=== PATIENT | female | born 1960 | race Caucasian/White ===

== ENCOUNTER 2016-04-28 19:02 | Emergency (ER) | payer OTHER ==
[2016-04-28] MEDS ORDERED: RX INFO: IV CONTRAST WAS GIVEN 1 EACH MISC MISCELLANE PRN (19:31)
[2016-04-28] MEDS ORDERED: diphenhydrAMINE 50 MG/ML 1 ML VIAL IVP STA (19:31)
[2016-04-28] MEDS ORDERED: SODIUM CHLORIDE 0.9% 1,000 ML IV STA ×2 (19:31)
[2016-04-28] MEDS ORDERED: MORPHINE SULFATE 4 MG/ML SYRINGE IV STA (19:31)
[2016-04-28] MEDS ORDERED: ACETAMINOPHEN IV (For NPO) 1,000 MG in EMPTY BAG 1 BAG IVPB STA (19:31)
--- NOTE | 2016-04-28 20:17 | ED ---
General Adult HPI - General Source: patient, RN notes reviewed, old records reviewed Mode of arrival: ambulatory Limitations: no limitations <Sky Finney - Last Filed: 04/28/16 20:24> <Shaina Ortiz - Last Filed: 04/28/16 22:42> - General Chief complaint: Headache Stated complaint: Headache Time Seen by Provider: 04/28/16 19:21 - History of Present Illness Initial comments: This is a 55-year-old female ER for not feeling well. Patient mainly complains of headache and symptoms of sinus infection. Patient does have a complex medical history complicated by brain aneurysm. Patient denies neurological deficit does complain of mild bradycardia vision, symptoms started at 4 AM this morning and have been persistent drug today with no modifying factors for pain. Patient denies recent fevers. No trauma. (Sky Finney) - Related Data Home Medications Medication Instructions Recorded Confirmed Acetaminophen Tab [Tylenol] 650 mg PO TID PRN 06/15/15 04/28/16 Aspirin EC [Ecotrin Low Dose] 81 mg PO DAILY 04/28/16 04/28/16 Venlafaxine HCl ER [Effexor Xr] 37.5 mg PO HS 04/28/16 04/28/16 Previous Rx's Medication Instructions Recorded predniSONE 20 mg PO DAILY #5 tab 04/28/16 Allergies Allergy/AdvReac Type Severity Reaction Status Date / Time Quinolones Allergy Severe Unknown Verified 04/28/16 19:56 Sulfa (Sulfonamide Allergy Rash/Hives/Vision Verified 04/28/16 19:56 Antibiotics) Disturbance Review of Systems ROS Other: All systems not noted in ROS Statement are negative. <Sky Finney - Last Filed: 04/28/16 20:24> ROS Other: All systems not noted in ROS Statement are negative. <Shaina Ortiz - Last Filed: 04/28/16 22:42> ROS Statement: Those systems with pertinent positive or pertinent negative responses have been documented in the HPI. Past Medical History Past Medical History: Deep Vein Thrombosis (DVT), Hyperlipidemia, Osteoarthritis (OA) Additional Past Medical History / Comment(s): [facility] physician told her once that she has fatty liver. [facility] has 3 ulcers, Hx. of DVT from flying to [place] in May 2015. Recent dx. of Shingles. Saw Dr. Dawson on 12-17-15 and states she is clear of shingles. History of Any Multi-Drug Resistant Organisms: None Reported Past Surgical History: Adenoidectomy, Hysterectomy, Tonsillectomy Additional Past Surgical History / Comment(s): bunionectomy x2, hammer toes on both feet. Past Anesthesia/Blood Transfusion Reactions: No Reported Reaction Past Psychological History: Anxiety, Depression Additional Psychological History / Comment(s): Pt. is very anxious about surgery. Smoking Status: Current every day smoker Past Alcohol Use History: None Reported Additional Past Alcohol Use History / Comment(s): Smokes approx. 10 cigarettes per day. Smoked approx. 2 PPD since early . Past Drug Use History: None Reported - Past Family History Mother Family Medical History: Cancer Additional Family Medical History / Comment(s): basal cell Father Family Medical History: Cancer Additional Family Medical History / Comment(s): basal cell <Sky Finney - Last Filed: 04/28/16 20:24> General Exam Limitations: no limitations General appearance: alert, in no apparent distress Head exam: Present: atraumatic, normocephalic, normal inspection Eye exam: Present: normal appearance, PERRL, EOMI. Absent: scleral icterus, conjunctival injection, periorbital swelling ENT exam: Present: normal exam, mucous membranes moist Neck exam: Present: normal inspection. Absent: tenderness, meningismus, lymphadenopathy Respiratory exam: Present: normal lung sounds bilaterally. Absent: respiratory distress, wheezes, rales, rhonchi, stridor Cardiovascular Exam: Present: regular rate, normal rhythm, normal heart sounds. Absent: systolic murmur, diastolic murmur, rubs, gallop, clicks GI/Abdominal exam: Present: soft, normal bowel sounds. Absent: distended, tenderness, guarding, rebound, rigid Extremities exam: Present: normal inspection, full ROM, normal capillary refill. Absent: tenderness, pedal edema, joint swelling, calf tenderness Back exam: Present: normal inspection Neurological exam: Present: alert, oriented X3, CN II-XII intact Psychiatric exam: Present: normal affect, normal mood Skin exam: Present: warm, dry, intact, normal color. Absent: rash <Sky Finney - Last Filed: 04/28/16 20:24> Course <Sky Finney - Last Filed: 04/28/16 20:24> <Shaina Ortiz - Last Filed: 04/28/16 22:42> Vital Signs 04/28/16 04/28/16 19:12 22:16 Temperature 99.1 F 97.9 F Pulse Rate 77 66 Respiratory 18 16 Rate Blood Pressure 130/73 102/56 O2 Sat by Pulse 97 99 Oximetry Patient was endorsed to me or Dr. Chen To follow-up on the CT angiogram of brain and the neck, CT angiogram of brain and head or unremarkable, CBC, INR, troponin, comprehensive metabolic panel and urinalysis was all reviewed and they are unremarkable. Patient had a prescription of amoxicillin from her family doctor she is advised to continue that 500 mg by mouth 3 times a day I would add prednisone 20 mg 1 tablet daily for 5 days and she was encouraged to do Tylenol 1 g by mouth every 6 when necessary for her headaches (Shaina Ortiz) - Reevaluation(s) Reevaluation #1: 04/28/16 20:25 Patient's headache is much improved (Sky Finney) EKG Findings - EKG Comments: EKG Findings:: EKG shows normal sinus rhythm rate of 67, MS 164, QRS 94, QTC 445 <Sky Finney - Last Filed: 04/28/16 20:24> Medical Decision Making - Lab Data Result diagrams: 04/28/16 20:10 04/28/16 20:10 <Shaina Ortiz - Last Filed: 04/28/16 22:42> - Lab Data Lab Results 04/28/16 04/28/16 04/28/16 Range/Units 20:10 20:10 20:10 WBC 3.2 L (3.8-10.6) k/uL RBC 4.43 (3.80-5.40) m/uL Hgb 13.7 (11.4-16.0) gm/dL Hct 40.5 (34.0-46.0) % MCV 91.3 (80.0-100.0) fL MCH 30.9 (25.0-35.0) pg MCHC 33.8 (31.0-37.0) g/dL RDW 12.3 (11.5-15.5) % Plt Count 169 (150-450) k/uL Neutrophils % 50 % Lymphocytes % 37 % Monocytes % 7 % Eosinophils % 3 % Basophils % 1 % Neutrophils # 1.6 (1.3-7.7) k/uL Lymphocytes # 1.2 (1.0-4.8) k/uL Monocytes # 0.2 (0-1.0) k/uL Eosinophils # 0.1 (0-0.7) k/uL Basophils # 0.0 (0-0.2) k/uL PT (9.0-12.0) sec INR (<1.1) APTT (22.0-30.0) sec Sodium 138 (137-145) mmol/L Potassium 4.4 (3.5-5.1) mmol/L Chloride 104 (98-107) mmol/L Carbon Dioxide 24 (22-30) mmol/L Anion Gap 10 mmol/L BUN 13 (7-17) mg/dL Creatinine 0.67 (0.52-1.04) mg/dL Est GFR (MDRD) Af Amer >60 (>60 ml/min/1.73 sqM) Est GFR (MDRD) Non-Af >60 (>60 ml/min/1.73 sqM) Glucose 77 (74-99) mg/dL Calcium 9.4 (8.4-10.2) mg/dL Phosphorus 4.5 (2.5-4.5) mg/dL Magnesium 2.0 (1.6-2.3) mg/dL Total Bilirubin 0.9 (0.2-1.3) mg/dL AST 40 H (14-36) U/L ALT 26 (9-52) U/L Alkaline Phosphatase 61 (38-126) U/L Total Creatine Kinase 56 (30-135) U/L CK-MB (CK-2) 0.3 (0.0-2.4) ng/mL CK-MB (CK-2) Rel Index 0.5 Troponin I 0.012 (0.000-0.034) ng/mL Total Protein 7.2 (6.3-8.2) g/dL Albumin 4.4 (3.5-5.0) g/dL Urine Color Urine Appearance (Clear) Urine pH (5.0-8.0) Ur Specific [place] (1.001-1.035) Urine Protein (Negative) Urine Glucose (UA) (Negative) Urine Ketones (Negative) Urine Blood (Negative) Urine Nitrate (Negative) Urine Bilirubin (Negative) Urine Urobilinogen (<2.0) mg/dL Ur Leukocyte Esterase (Negative) 04/28/16 04/28/16 Range/Units 20:10 20:10 WBC (3.8-10.6) k/uL RBC (3.80-5.40) m/uL Hgb (11.4-16.0) gm/dL Hct (34.0-46.0) % MCV (80.0-100.0) fL MCH (25.0-35.0) pg MCHC (31.0-37.0) g/dL RDW (11.5-15.5) % Plt Count (150-450) k/uL Neutrophils % % Lymphocytes % % Monocytes % % Eosinophils % % Basophils % % Neutrophils # (1.3-7.7) k/uL Lymphocytes # (1.0-4.8) k/uL Monocytes # (0-1.0) k/uL Eosinophils # (0-0.7) k/uL Basophils # (0-0.2) k/uL PT 9.9 (9.0-12.0) sec INR 1.0 (<1.1) APTT 22.1 (22.0-30.0) sec Sodium (137-145) mmol/L Potassium (3.5-5.1) mmol/L Chloride (98-107) mmol/L Carbon Dioxide (22-30) mmol/L Anion Gap mmol/L BUN (7-17) mg/dL Creatinine (0.52-1.04) mg/dL Est GFR (MDRD) Af Amer (>60 ml/min/1.73 sqM) Est GFR (MDRD) Non-Af (>60 ml/min/1.73 sqM) Glucose (74-99) mg/dL Calcium (8.4-10.2) mg/dL Phosphorus (2.5-4.5) mg/dL Magnesium (1.6-2.3) mg/dL Total Bilirubin (0.2-1.3) mg/dL AST (14-36) U/L ALT (9-52) U/L Alkaline Phosphatase (38-126) U/L Total Creatine Kinase (30-135) U/L CK-MB (CK-2) (0.0-2.4) ng/mL CK-MB (CK-2) Rel Index Troponin I (0.000-0.034) ng/mL Total Protein (6.3-8.2) g/dL Albumin (3.5-5.0) g/dL Urine Color Light Yellow Urine Appearance Clear (Clear) Urine pH 6.5 (5.0-8.0) Ur Specific [place] 1.008 (1.001-1.035) Urine Protein Negative (Negative) Urine Glucose (UA) Negative (Negative) Urine Ketones Negative (Negative) Urine Blood Negative (Negative) Urine Nitrate Negative (Negative) Urine Bilirubin Negative (Negative) Urine Urobilinogen <2.0 (<2.0) mg/dL Ur Leukocyte Esterase Negative (Negative) Disposition <Sky Finney - Last Filed: 04/28/16 20:24> <Shaina Ortiz - Last Filed: 04/28/16 22:42> Clinical Impression: Headache, Sinusitis Disposition: HOME SELF-CARE Condition: Good Instructions: Acute Headache (ED) Prescriptions: predniSONE 20 mg PO DAILY #5 tab
[2016-04-28 20:29] LABS: Basophils % (A) 1 %; CH 30.6; CHCM 33.6; Eosinophils # (A) 0.1 k/uL (0-0.7); Eosinophils % (A) 3 %; HCT 40.5 % (34.0-46.0); HDW 2.33; HGB 13.7 gm/dL (11.4-16.0); Luc % (Auto) 3; Lymphocytes # (A) 1.2 k/uL (1.0-4.8); Lymphocytes % (A) 37 %; MCH 30.9 pg (25.0-35.0); MCHC 33.8 g/dL (31.0-37.0); MCV 91.3 fL (80.0-100.0); Mean Platelet Volume 8.2; Monocytes # (A) 0.2 k/uL (0-1.0); Monocytes % (A) 7 %; Neutrophils # (A) 1.6 k/uL (1.3-7.7); Neutrophils % (A) 50 %; RBC 4.43 m/uL (3.80-5.40); RDW 12.3 % (11.5-15.5); WBC 3.2 k/uL (3.8-10.6)
[2016-04-28 20:30] LABS: Appearance,Urine Clear (Clear); Bilirubin,Urine Negative (Negative); Glucose,Urine (UA) Negative (Negative); Ketones,Urine Negative (Negative); Leukocyte Esterase,Urine Negative (Negative); Nitrite,Urine Negative (Negative); PH, Urine 6.5 (5.0-8.0); Protein,Urine Negative (Negative); Specific Gravity,Urine 1.008 (1.001-1.035); UA Billing (MACRO vs. MICRO) CHEM; Urobilinogen,Urine <2.0 mg/dL (<2.0)
[2016-04-28 20:43] LABS: ALT 26 U/L (9-52); AST 40 U/L (14-36); Alkaline Phosphatase 61 U/L (38-126); Anion Gap 10 mmol/L; Blood Urea Nitrogen 13 mg/dL (7-17); Calcium 9.4 mg/dL (8.4-10.2); Carbon Dioxide 24 mmol/L (22-30); Chloride 104 mmol/L (98-107); Glucose 77 mg/dL (74-99); Non-African American GFR(MDRD) >60 (>60 ml/min/1.73 sqM); Phosphorous 4.5 mg/dL (2.5-4.5); Sodium 138 mmol/L (137-145); Total Bilirubin 0.9 mg/dL (0.2-1.3); Total Protein 7.2 g/dL (6.3-8.2)
[2016-04-28 20:46] LABS: Potassium 4.4 mmol/L (3.5-5.1)
[2016-04-28 20:48] LABS: Partial Thromboplastin Time 22.1 sec (22.0-30.0); Prothrombin Time 9.9 sec (9.0-12.0)
[2016-04-28 21:09] LABS: Creatine Kinase MB 0.3 ng/mL (0.0-2.4); Troponin I 0.012 ng/mL (0.000-0.034)
--- NOTE | 2016-04-28 21:45 | CT ---
EXAMINATION TYPE: CT angio head neck DATE OF EXAM: 04/28/2016 9:21 PM COMPARISON: NONE HISTORY: Pt states of BOYCE and blurry vision. Hx of right side brain aneurysm. CT DLP: 206.4 mGycm Automated exposure control for dose reduction was used. TECHNIQUE: Performed with IV Contrast, patient injected with 65 mL of Omnipaque 350. There are 3-D post processed images.. FINDINGS: There is normal branching pattern of the great vessels on the aortic arch. There is bilateral patency of the vertebral arteries. There is bilateral patency of the common internal and external carotid ar teries. There is arterial flow in the vertebrobasilar artery system. There is arterial flow in the anterior m iddle and posterior cerebral arteries. I see no mass effect. There is no evidence of aneurysm or neov ascularity. I see no pathologic enhancement. I see no evidence of stenosis. IMPRESSION: NEGATIVE CT ANGIOGRAM OF THE NECK. NEGATIVE CT ANGIOGRAM OF THE BRAIN.
[2016-04-28 22:17] VITALS: BP 102/56; PULSE 66; RESP 16; TEMP 97.9
== END 2016-04-28 22:57 | disposition home or self-care (01) ==
LOC: EC 19:02
DX: J32.9 Chronic sinusitis, unspecified (principal); Z79.82 Long term (current) use of aspirin; F41.9 Anxiety disorder, unspecified; F32.9 Major depressive disorder, single episode, unspecified; Z86.718 Personal history of other venous thrombosis and embolism; Z88.8 Allergy status to other drugs, medicaments and biological substances; Z88.2 Allergy status to sulfonamides; F17.210 Nicotine dependence, cigarettes, uncomplicated
CPT/HCPCS: 36415; 93005; 80053; 82550; 82553; 83735; 84100; 84484; 85025; 85610; 85730; 81003; 87086; 70496; 70498; 96374; 96375; 99284; J2270; J1200; Q9967; J0131

== ENCOUNTER → 2016-09-25 | Outpatient (CLI) | payer OTHER ==
--- NOTE | 2016-09-29 11:13 | MM ---
Reason for exam: screening (asymptomatic). Last mammogram was performed 1 year ago. History: Patient is postmenopausal and has history of other cancer at age 49. Family history of breast cancer in maternal aunt at age 55 and breast cancer in maternal aunt at age 50. Physical Findings: A clinical breast exam by your physician is recommended on an annual basis and results should be correlated with mammographic findings. MG Screening Mammo w CAD Bilateral CC and MLO view(s) were taken. Prior study comparison: September 19, 2015, bilateral MG screening mammo w CAD. July 11, 2014, bilateral MG screening mammo w CAD. There are scattered fibroglandular densities. No significant changes when compared with prior studies. ASSESSMENT: Negative, BI-RAD 1 RECOMMENDATION: Routine screening mammogram of both breasts in 1 year.
== END | disposition home or self-care (01) ==
LOC: RADMAMWWP 09:55
PROVIDERS: ATTEND Obstetrics & Gynecology
DX: Z12.31 Encounter for screening mammogram for malignant neoplasm of breast (principal); Z80.3 Family history of malignant neoplasm of breast

== ENCOUNTER → 2017-10-12 | Outpatient (CLI) | payer OTHER ==
--- NOTE | 2017-10-12 13:15 | BD ---
EXAMINATION TYPE: Axial Bone Density DATE OF EXAM: 10/12/2017 COMPARISON: NONE CLINICAL HISTORY: Height: 66 IN Weight: 171 LBS RISK FACTORS HISTORY OF: Active: YES Postmenopausal woman: AGE 50 MEDICATIONS: Additional Medications: BABY ASPIRIN EXAM MEASUREMENTS: Bone mineral densitometry was performed using the [employer]. Bone mineral density as measured about the Lumbar spine is: ----- L1-L4(G/cm2): 0.826 T Score Values are as follows: ----- L2: -3.7 ----- L3: -3.6 ----- L4: -2.0 ----- L1-L4: -2.9 Bone mineral density BASELINE Bone mineral density about the R hip (g/cm2): 0.789 Bone mineral density about the L hip (g/cm2): 0.737 T Score values are as follows: -----R Neck: -2.2 -----L Neck: -1.8 -----R Total: -2.1 -----L Total: -2.1 Bone mineral density BASELINE IMPRESSION: Osteopenia about the bilateral femoral and osteoporosis about the lumbar spine. NOTE: T-SCORE=SD OF THE YOUNG ADULT MEAN.
--- NOTE | 2017-10-18 13:43 | MM ---
Reason for exam: screening (asymptomatic). Last mammogram was performed 1 year and 1 month ago. History: Patient is postmenopausal and has history of other cancer at age 49. Family history of breast cancer in maternal aunt at age 55 and breast cancer in maternal aunt at age 50. Physical Findings: A clinical breast exam by your physician is recommended on an annual basis and results should be correlated with mammographic findings. MG Screening Mammo w CAD Bilateral CC and MLO view(s) were taken. Prior study comparison: September 25, 2016, bilateral MG screening mammo w CAD. September 19, 2015, bilateral MG screening mammo w CAD. There are scattered fibroglandular densities. No significant changes when compared with prior studies. ASSESSMENT: Benign, BI-RAD 2 RECOMMENDATION: Routine screening mammogram of both breasts in 1 year.
== END | disposition home or self-care (01) ==
LOC: RADMAMWWP 07:02
PROVIDERS: ATTEND Obstetrics & Gynecology
DX: Z12.31 Encounter for screening mammogram for malignant neoplasm of breast (principal); M81.0 Age-related osteoporosis without current pathological fracture; M85.852 Other specified disorders of bone density and structure, left thigh; M85.851 Other specified disorders of bone density and structure, right thigh; Z80.3 Family history of malignant neoplasm of breast; Z78.0 Asymptomatic menopausal state
CPT/HCPCS: 77067; 77080

== ENCOUNTER 2017-10-13 14:18 | Emergency (ER) | payer OTHER ==
[2017-10-13 14:43] VITALS: BP 105/70; PULSE 77; RESP 18; TEMP 98.3
--- NOTE | 2017-10-13 15:36 | ED ---
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 Mother states that two afternoons ago she was in the yard with her daughters playing badmitten when her daughter swung the raquet and hit her on the right side of face and head. Pt denies falling or loss of conciousness. Pt admits to headache since but experiences migraines chronically. Pt states that the headache came on gradually and is not the worse headache of her life. Pt comes in today requesting imaging of her head to "make sure the aneurysm didnt burst or something". Pt admits to headache, and some nausea. Denies vomiting, visual changes, parathesias, facial assymetry, loss of sensation, diplopia or any other symptoms. In addition pt admitted to tenderness to palpation over the lateral ride side of face and head. - Related Data Home Medications Medication Instructions Recorded Confirmed Aspirin EC [Ecotrin Low Dose] 81 mg PO DAILY 04/28/16 10/13/17 Allergies Allergy/AdvReac Type Severity Reaction Status Date / Time Quinolones Allergy Severe Unknown Verified 10/13/17 14:59 Sulfa (Sulfonamide Allergy Rash/Hives/Vision Verified 10/13/17 14:59 Antibiotics) Disturbance Review of Systems ROS Statement: Those systems with pertinent positive or pertinent negative responses have been documented in the HPI. ROS Other: All systems not noted in ROS Statement are negative. Past Medical History Past Medical History: Deep Vein Thrombosis (DVT), Hyperlipidemia, Osteoarthritis (OA) Additional Past Medical History / Comment(s): [facility] physician told her once that she has fatty liver. [facility] has 3 ulcers, Hx. of DVT from flying to [place] in May 2015. Recent dx. of Shingles. Saw Dr. Dawson on 12-17-15 and states she is clear of shingles. History of Any Multi-Drug Resistant Organisms: None Reported Past Surgical History: Adenoidectomy, Hysterectomy, Tonsillectomy Additional Past Surgical History / Comment(s): bunionectomy x2, hammer toes on both feet. Past Anesthesia/Blood Transfusion Reactions: No Reported Reaction Past Psychological History: Anxiety, Depression Smoking Status: Current every day smoker Past Alcohol Use History: None Reported Past Drug Use History: None Reported - Past Family History Mother Family Medical History: Cancer Additional Family Medical History / Comment(s): basal cell Father Family Medical History: Cancer Additional Family Medical History / Comment(s): basal cell General Exam - General Exam Comments Initial Comments: General: The patient is awake and alert, in no distress, and does not appear acutely ill. Eye: Pupils are equal, round and reactive to light, extra-ocular movements are intact. No nystagmus. There is normal conjunctiva bilaterally. No signs of icterus. Ears, nose, mouth and throat: There are moist mucous membranes and no oral lesions. Cardiovascular: There is a regular rate and rhythm. No murmur, rub or gallop is appreciated. Respiratory: Lungs are clear to auscultation, respirations are non-labored, breath sounds are equal. No wheezes, stridor, rales, or rhonchi. Musculoskeletal: Radial pulses equal bilaterally 2+. . Skin: Skin is warm and dry and no rashes or lesions are noted. No soft tissue swelling, ecchymosis or any abnormalities noted of the right side of face. It is equal in comparison with left. No contusions or bruising. Psychiatric: Cooperative, appropriate mood & affect, normal judgment. Neurological: AAOx3 memory intact to immediately, intermediate and skilled nursing recall. Able to follow simple verbal. Able to name a common object (pen). High quality speech. Able to express general knowledge (days in a week). No hemineglect or inattention noted. Finger agnosia (-) and spatially oriented ( identified L index finger touched R shoulder with L index finger). Light touch and temperature sensation present over the face, chest, abdomen, back, UE bilaterally, and LE bilaterally. Able to localize point during point localization b/l and extinction. No visible bulk atrophy, hypertrophy, fasciculations, or myoclonus of the UE or LE b/l. Full PROM in UE and LE b/l. Bilateral muscle strength 5/5 for the following muscles: deltoid, biceps, triceps, brachioradialis, wrist extensors/flexor, hip flexor, hip abductors/ adductors, hamstrings, quadriceps, feet dorsiflexors/plantar flexors. Finger to nose, finger to the examiners finger, and heel to diaz coordinated and accurate b/l. Coordinated and even demonstration of hand flip. +2 brachioradialis, triceps, patellar, and Achilles DTR b/l. Gait is coordinated and even in stride with tandem, toe and heel walk. Maintains balance with monopedal stance. (-) Romberg. (-) pronator drift. No nuchal rigidity. (-) Brudzinskis and Kernig signs. Limitations: no limitations Course Vital Signs 10/13/17 14:41 Temperature 98.3 F Pulse Rate 77 Respiratory 18 Rate Blood Pressure 105/70 O2 Sat by Pulse 99 Oximetry Medical Decision Making - Medical Decision Making Neuro exam unremarkable, no focal neurological deficits. CT obtained (-) for acute intracranial process. Pt was given toradol IM 30mg and zofran for nausea. Pt stated that this alleviated her symptoms. Case discussed with Dr. Boyce, at this time we feel patient is stable for discharge with neurology f/u for her chronic migraines. Pt agreed with plan. Pt discharged in stable condition. Disposition Clinical Impression: Head injury without concussion or intracranial hemorrhage Disposition: HOME SELF-CARE Condition: Good Instructions: Head Injury (ED) Additional Instructions: Please use home medication as discussed. Please follow-up with your neurologist in 1-2 days. Please return to emergency room if the symptoms increase or worsen or for any other concerns. Is patient prescribed a controlled substance at d/c from ED?: No Referrals: Robert Egan MD [Primary Care Provider] - 1-2 days Rick Todd MD [STAFF PHYSICIAN] - 1-2 days Time of Disposition: 15:44
--- NOTE | 2017-10-13 15:39 | CT ---
EXAMINATION TYPE: CT brain wo con DATE OF EXAM: 10/13/2017 COMPARISON: None INDICATION: Headache DLP: 1165 mGycm, Automated exposure control for dose reduction was used. CONTRAST: None CT of the brain is performed utilizing 3 mm thick sections through the posterior fossa and 3 mm thick sections through the remaining calvarium. Study is performed within 24 hours of arrival to the hosp [facility]. No abnormal hyperdensity is present to suggest an acute intracranial hemorrhage. No mass lesion is evident. No acute infarcts are evident. Ventricles and sulci are appropriate for the patient age. There is a patent cavum septum lucid, a no rmal variant. Paranasal sinuses and mastoid air cells within the [id number] are clear. IMPRESSIONS: 1. Normal CT Brain
[2017-10-13] MEDS ORDERED: KETOROLAC 30 MG/ML 1 ML VIAL IM STA (15:44)
[2017-10-13] MEDS ORDERED: ONDANSETRON ODT 4 MG TAB PO STA (15:44)
== END 2017-10-13 16:48 | disposition home or self-care (01) ==
LOC: EC 14:18
DX: S09.90XA Unspecified injury of head, initial encounter (principal); M19.90 Unspecified osteoarthritis, unspecified site; F17.200 Nicotine dependence, unspecified, uncomplicated; Z79.82 Long term (current) use of aspirin; Z88.1 Allergy status to other antibiotic agents; Z88.2 Allergy status to sulfonamides; W21.19XA Struck by other bat, racquet or club, initial encounter; Y93.73 Activity, racquet and hand sports; Y92.007 Garden or yard of unspecified non-institutional (private) residence as the place of occurrence of the external cause
CPT/HCPCS: 70450; 96372; 99283

== ENCOUNTER 2017-11-10 14:18 | Emergency (ER) | payer OTHER ==
[2017-11-10 14:32] VITALS: RESP 18
--- NOTE | 2017-11-10 15:00 | ED ---
General Adult HPI - General Chief complaint: ENT Stated complaint: Neck/throat swollen Time Seen by Provider: 11/10/17 14:41 Source: patient, RN notes reviewed Mode of arrival: ambulatory Limitations: no limitations - History of Present Illness Initial comments: Patient 57-year-old female presented to the emergency room today with a chief complaint of increased neck pain. Patient does admit that for the past week and a half she's had some posterior neck pain worse with movements. She states that she's also felt some fullness. She states that she's had chronic sinus problems. She states she has follow-up the family doctor was started on antibiotics yesterday. She states that she began feeling increased fullness and soreness to her neck specifically when she swallows. Patient did go back to her family doctor earlier today was advised coming to the emergency room for a CT of her neck. Patient denies any recent fever, chills, shortness of breath, chest pain, back pain, abdominal pain, nausea or vomiting, visual changes, or any other complaints. - Related Data Home Medications Medication Instructions Recorded Confirmed Aspirin EC [Ecotrin Low Dose] 81 mg PO DAILY 04/28/16 11/10/17 Acetaminophen [Tylenol] 1,000 mg PO Q4-6H PRN 11/10/17 11/10/17 Azithromycin [Zithromax] 500 mg PO HS 11/10/17 11/10/17 Fexofenadine/Pseudoephedrine 1 each PO BID 11/10/17 11/10/17 [Rylee-D 12 Hour Tablet] Ibuprofen [Advil] 200 mg PO Q8HR PRN 11/10/17 11/10/17 Allergies Allergy/AdvReac Type Severity Reaction Status Date / Time Quinolones Allergy Severe Unknown Verified 11/10/17 16:00 Sulfa (Sulfonamide Allergy Rash/Hives/Vision Verified 11/10/17 16:00 Antibiotics) Disturbance Review of Systems ROS Statement: Those systems with pertinent positive or pertinent negative responses have been documented in the HPI. ROS Other: All systems not noted in ROS Statement are negative. Past Medical History Past Medical History: Deep Vein Thrombosis (DVT), Osteoarthritis (OA) Additional Past Medical History / Comment(s): fatty liver, ulcers, Shingles, leukoplakia History of Any Multi-Drug Resistant Organisms: None Reported Past Surgical History: Adenoidectomy, Hysterectomy, Tonsillectomy Additional Past Surgical History / Comment(s): bunionectomy x2, hammer toes on both feet. Past Anesthesia/Blood Transfusion Reactions: No Reported Reaction Past Psychological History: Anxiety, Depression Smoking Status: Former smoker Past Alcohol Use History: None Reported Past Drug Use History: None Reported - Past Family History Mother Family Medical History: Cancer Additional Family Medical History / Comment(s): basal cell Father Family Medical History: Cancer Additional Family Medical History / Comment(s): basal cell General Exam - General Exam Comments Initial Comments: General: The patient is awake and alert, in no distress, and does not appear acutely ill. Eye: Pupils are equal, round and reactive to light. Extra-ocular movements are intact. No nystagmus. There is normal conjunctiva bilaterally. No signs of icterus. Ears, nose, mouth and throat: There are moist mucous membranes and no oral lesions. TMs clear bilaterally. Patient does have tenderness over both frontal and maxillary sinuses. Uvula midline. Patient swallows without difficulty. Neck: The neck is supple, there is no tenderness or JVD. Cardiovascular: There is a regular rate and rhythm. No murmur, rub or gallop is appreciated. Respiratory: Lungs are clear to auscultation, respirations are non-labored, breath sounds are equal. No wheezes, stridor, rales, or rhonchi. Musculoskeletal: Normal ROM. Sensation intact. Strength 5/5. Pulses equal bilaterally 2+. Neurological: A&O x 3. CN II-XII intact, There are no obvious motor or sensory deficits. Coordination appears grossly intact. Speech is normal. Skin: Skin is warm and dry and no rashes or lesions are noted. Psychiatric: Cooperative, appropriate mood & affect, normal judgment. Limitations: no limitations Course Vital Signs 11/10/17 14:26 Temperature 98.1 F Pulse Rate 77 Respiratory 18 Rate Blood Pressure 120/81 O2 Sat by Pulse 100 Oximetry Medical Decision Making - Medical Decision Making Patient reexamined at this time shows no signs of distress. She is resting comfortably. Patient's labs been reviewed. Patient's CT the head negative for any acute abnormalities. CT of the neck shows mild edema over the masseter muscle. Patient does admit that she had a recent biopsy in this area. At this time patient is doing well will be discharged home advised continue previous to prescribed antibiotics. She does have a prescription for steroids at the pharmacy from the family physician. Patient is advised follow-up family doctor tomorrow. Advised return for any other concerns. - Lab Data Result diagrams: 11/10/17 15:13 11/10/17 15:13 Lab Results 11/10/17 11/10/17 Range/Units 15:13 15:13 WBC 2.7 L (3.8-10.6) k/uL RBC 4.40 (3.80-5.40) m/uL Hgb 13.2 (11.4-16.0) gm/dL Hct 40.3 (34.0-46.0) % MCV 91.6 (80.0-100.0) fL MCH 30.0 (25.0-35.0) pg MCHC 32.8 (31.0-37.0) g/dL RDW 12.9 (11.5-15.5) % Plt Count (150-450) k/uL Neutrophils % (Manual) 52 % Lymphocytes % (Manual) 36 % Monocytes % (Manual) 9 % Eosinophils % (Manual) 3 % Neutrophils # (Manual) 1.40 (1.3-7.7) k/uL Lymphocytes # (Manual) 0.97 L (1.0-4.8) k/uL Monocytes # (Manual) 0.24 (0-1.0) k/uL Eosinophils # (Manual) 0.08 (0-0.7) k/uL Nucleated RBCs 0 (0-0) /100 WBC Polychromasia Present Sodium 140 (137-145) mmol/L Potassium 4.7 (3.5-5.1) mmol/L Chloride 107 (98-107) mmol/L Carbon Dioxide 25 (22-30) mmol/L Anion Gap 8 mmol/L BUN 13 (7-17) mg/dL Creatinine 0.63 (0.52-1.04) mg/dL Est GFR (CKD-EPI)AfAm >90 (>60 ml/min/1.73 sqM) Est GFR (CKD-EPI)NonAf >90 (>60 ml/min/1.73 sqM) Glucose 91 (74-99) mg/dL Calcium 9.5 (8.4-10.2) mg/dL Total Bilirubin 0.9 (0.2-1.3) mg/dL AST 35 (14-36) U/L ALT 27 (9-52) U/L Alkaline Phosphatase 45 (38-126) U/L Total Protein 7.1 (6.3-8.2) g/dL Albumin 4.3 (3.5-5.0) g/dL Disposition Clinical Impression: Sinusitis Disposition: HOME SELF-CARE Condition: Good Instructions: Sinusitis (ED) Additional Instructions: Please use medication as discussed. Please follow-up with family doctor in the next 2 days of symptoms have not improved. Please return to emergency room if the symptoms increase or worsen or for any other concerns. Is patient prescribed a controlled substance at d/c from ED?: No Referrals: Robert Egan MD [Primary Care Provider] - 1-2 days Time of Disposition: 16:26
[2017-11-10 15:34] LABS: HCT 40.3 % (34.0-46.0); HGB 13.2 gm/dL (11.4-16.0); MCHC 32.8 g/dL (31.0-37.0); MCV 91.6 fL (80.0-100.0); RDW 12.9 % (11.5-15.5); WBC 2.7 k/uL (3.8-10.6)
[2017-11-10 15:51] LABS: ALT 27 U/L (9-52); AST 35 U/L (14-36); Albumin 4.3 g/dL (3.5-5.0); Alkaline Phosphatase 45 U/L (38-126); Anion Gap 8 mmol/L; Blood Urea Nitrogen 13 mg/dL (7-17); Calcium 9.5 mg/dL (8.4-10.2); Carbon Dioxide 25 mmol/L (22-30); Chloride 107 mmol/L (98-107); Glucose 91 mg/dL (74-99); Sodium 140 mmol/L (137-145); Total Bilirubin 0.9 mg/dL (0.2-1.3); Total Protein 7.1 g/dL (6.3-8.2)
[2017-11-10 15:56] LABS: Eosinophils # (M) 0.08 k/uL (0-0.7); Lymphocytes # (M) 0.97 k/uL (1.0-4.8); Monocytes # (M) 0.24 k/uL (0-1.0); Neutrophils % (M) 52 %; Nucleated Red Blood Cells 0 /100 WBC (0-0); Polychromasia Present; Potassium 4.7 mmol/L (3.5-5.1); Total Cells Counted 100
--- NOTE | 2017-11-10 15:56 | CT ---
EXAMINATION TYPE: CT brain wo con DATE OF EXAM: 11/10/2017 COMPARISON: October 13, 2017 HISTORY: HX OF BRAIN ANUERYSM CT DLP: 1098.[address] of the brain was performed. The ventricles, basal cisterns and sulci overlying the cerebral convexities demonstrate a normal appe arance. There is no evidence for intracranial hemorrhage or sulcal effacement. No mass effects are seen. Osseous calvarium is intact. If symptoms persist consider MRI as clinically warranted. IMPRESSION: 1. No acute intracranial process is seen at this time.
--- NOTE | 2017-11-10 16:02 | CT ---
EXAMINATION TYPE: CT soft tissue neck w con DATE OF EXAM: 11/10/2017 COMPARISON: None HISTORY: LEFT SIDE FACIAL SWELLING CT DLP: 353.5 mGycm CONTRAST: CT scan of the neck is performed with IV Contrast, patient injected with 100 mL of Isovue 300. Contrast enhanced CT of the neck was performed from the skull base through the lung apices. AIRWAY: The supraglottic, glottic, and subglottic portions of the airway appear patent and free of mass. SALIVARY GLANDS: The submandibular and parotid glands are free of mass or inflammatory process. THYROID GLAND: No nodules or masses seen. LYMPH NODES: No adenopathy seen greater than 1cm. LUNG APICES: No nodule or mass is seen. OTHER: There is mild subcutaneous edema noted anterior to the left sided the masseter musculature. N o evidence for abscess. Vascular structures are patent. No significant degenerative change of the ce rvical spine. No abscess seen. IMPRESSION: There is mild subcutaneous edema noted anterior to the left sided the masseter musculature. No evide nce for abscess.
[2017-11-10 16:43] VITALS: BP 118/52; PULSE 69; TEMP 98.4
== END 2017-11-10 16:43 | disposition home or self-care (01) ==
LOC: EC 14:18
DX: J32.9 Chronic sinusitis, unspecified (principal); R60.0 Localized edema; M54.2 Cervicalgia; M19.90 Unspecified osteoarthritis, unspecified site; Z87.891 Personal history of nicotine dependence; Z88.1 Allergy status to other antibiotic agents; Z88.2 Allergy status to sulfonamides; Z79.82 Long term (current) use of aspirin; Z79.899 Other long term (current) drug therapy
CPT/HCPCS: 36415; 80053; 85025; 70491; 70450; 99284; Q9967

== ENCOUNTER → 2018-11-03 | Outpatient (CLI) | payer OTHER ==
--- NOTE | 2018-11-04 13:45 | MM ---
Reason for exam: screening (asymptomatic). Last mammogram was performed 1 year and 1 month ago. History: Patient is postmenopausal and has history of other cancer at age 49. Family history of breast cancer in maternal aunt at age 55 and breast cancer in maternal aunt at age 50. Physical Findings: A clinical breast exam by your physician is recommended on an annual basis and results should be correlated with mammographic findings. MG Screening Mammo w CAD Bilateral CC and MLO view(s) were taken. Prior study comparison: October 12, 2017, bilateral MG screening mammo w CAD. September 25, 2016, bilateral MG screening mammo w CAD. The breast tissue is heterogeneously dense. This may lower the sensitivity of mammography. No suspicious abnormality. ASSESSMENT: Negative, BI-RAD 1 RECOMMENDATION: Routine screening mammogram of both breasts in 1 year.
== END | disposition home or self-care (01) ==
LOC: RADMAMWWP 10:42
PROVIDERS: ATTEND Family Medicine
DX: Z12.31 Encounter for screening mammogram for malignant neoplasm of breast (principal)
CPT/HCPCS: 77067

== ENCOUNTER 2018-11-12 19:34 | Emergency (ER) | payer OTHER ==
[2018-11-12 19:45] VITALS: RESP 18; TEMP 98.3
[2018-11-12] MEDS ORDERED: CLINDAMYCIN 150 MG CAP PO STA (20:41)
--- NOTE | 2018-11-12 20:57 | ED ---
ENT HPI - General Chief complaint: Dental/Oral Stated complaint: Dental infection Time Seen by Provider: 11/12/18 19:48 Source: patient, family Mode of arrival: ambulatory Limitations: no limitations - History of Present Illness Initial comments: Patient is a 58-year-old female presenting to the emergency department with a chief complaint of tooth pain. Patient reports she recently had dental work done in the right lower jaw. Patient reports she has developed swelling along the angle of the right mandible. Patient reports pain along the right side of her jaw as well as the hard palate. Patient denies nausea vomiting. Patient denies any fevers or night sweats. Patient denies dysphagia, odynophagia or dyspnea. Patient denies any discharge from the mouth. Patient denies any pain radiating superiorly to the head or inferior to the neck - Related Data Home Medications Medication Instructions Recorded Confirmed Aspirin EC [Ecotrin Low Dose] 81 mg PO DAILY 04/28/16 11/10/17 Acetaminophen [Tylenol] 1,000 mg PO Q4-6H PRN 11/10/17 11/10/17 Azithromycin [Zithromax] 500 mg PO HS 11/10/17 11/10/17 Fexofenadine/Pseudoephedrine 1 each PO BID 11/10/17 11/10/17 [Rylee-D 12 Hour Tablet] Ibuprofen [Advil] 200 mg PO Q8HR PRN 11/10/17 11/10/17 Previous Rx's Medication Instructions Recorded Clindamycin [Cleocin] 150 mg PO Q6H #40 capsule 11/12/18 Allergies Allergy/AdvReac Type Severity Reaction Status Date / Time Quinolones Allergy Severe Unknown Verified 11/12/18 19:45 Sulfa (Sulfonamide Allergy Rash/Hives/Vision Verified 11/12/18 19:45 Antibiotics) Disturbance Review of Systems ROS Statement: Those systems with pertinent positive or pertinent negative responses have been documented in the HPI. ROS Other: All systems not noted in ROS Statement are negative. Past Medical History Past Medical History: Deep Vein Thrombosis (DVT), Osteoarthritis (OA) Additional Past Medical History / Comment(s): fatty liver, ulcers, Shingles, leukoplakia History of Any Multi-Drug Resistant Organisms: None Reported Past Surgical History: Adenoidectomy, Hysterectomy, Tonsillectomy Additional Past Surgical History / Comment(s): bunionectomy x2, hammer toes on both feet. Past Anesthesia/Blood Transfusion Reactions: No Reported Reaction Past Psychological History: Anxiety, Depression Smoking Status: Former smoker Past Alcohol Use History: None Reported Past Drug Use History: None Reported - Past Family History Mother Family Medical History: Cancer Additional Family Medical History / Comment(s): basal cell Father Family Medical History: Cancer Additional Family Medical History / Comment(s): basal cell General Exam Limitations: no limitations General appearance: alert, in no apparent distress Head exam: Present: atraumatic, normocephalic, normal inspection Eye exam: Present: normal appearance, PERRL, EOMI Pupils: Present: normal accommodation ENT exam: Present: normal exam, normal oropharynx (Erythema along the gumline of the right lower jaw. Erythema and inflammation of the hard palate. No lesions noted.), mucous membranes moist, TM's normal bilaterally, normal external ear exam Neck exam: Present: normal inspection, tenderness, full ROM Respiratory exam: Present: normal lung sounds bilaterally Cardiovascular Exam: Present: regular rate, normal rhythm, normal heart sounds Extremities exam: Present: normal inspection, full ROM Back exam: Present: normal inspection, full ROM Neurological exam: Present: alert, oriented X3 Psychiatric exam: Present: normal affect, normal mood Skin exam: Present: warm, intact, normal color Course Vital Signs 11/12/18 11/12/18 19:41 21:12 Temperature 98.3 F Pulse Rate 82 80 Respiratory 18 18 Rate Blood Pressure 130/90 121/81 O2 Sat by Pulse 99 98 Oximetry Medical Decision Making - Medical Decision Making Patient is a 58-year-old female presenting to the emergency department with a chief complaint of tooth pain. Patient reports she recently had dental work done in the right lower jaw. Physical examination there is erythema along the gumline a right lower jaw as well as the hard palate. No abscesses are noted. At this time patient will be given a single dose of clindamycin will be discharged with a 10 day course of clindamycin. Patient advised to follow with a dentist. Strict return parameters were thoroughly discussed patient is understanding and agreeable. Case discussed with physician. Disposition Clinical Impression: Inflamed gum Disposition: HOME SELF-CARE Condition: Stable Instructions (If sedation given, give patient instructions): Toothache (ED) Additional Instructions: Please see prescribe medication as directed. Please return to emergency department if symptoms worsen. Prescriptions: Clindamycin [Cleocin] 150 mg PO Q6H #40 capsule Is patient prescribed a controlled substance at d/c from ED?: No Referrals: Robert Egan MD [Primary Care Provider] - 1-2 days Time of Disposition: 20:57
[2018-11-12 21:14] VITALS: BP 121/81; PULSE 80
== END 2018-11-12 21:13 | disposition home or self-care (01) ==
LOC: EC 19:34
DX: K05.10 Chronic gingivitis, plaque induced (principal); K08.89 Other specified disorders of teeth and supporting structures; M19.90 Unspecified osteoarthritis, unspecified site; Z87.891 Personal history of nicotine dependence; Z88.1 Allergy status to other antibiotic agents; Z88.2 Allergy status to sulfonamides; Z79.82 Long term (current) use of aspirin; Z90.89 Acquired absence of other organs
CPT/HCPCS: 99282

== ENCOUNTER 2019-01-12 17:50 | Emergency (ER) | payer OTHER ==
[2019-01-12 17:57] VITALS: RESP 18
[2019-01-12] MEDS ORDERED: HYDROmorphone 0.5 MG/0.5 ML SYRINGE IVP STA (18:08)
[2019-01-12] MEDS ORDERED: ONDANSETRON 4 MG/2 ML VIAL IVP STA (18:08)
[2019-01-12] MEDS ORDERED: SODIUM CHLORIDE 0.9% 1,000 ML IV STA (18:08)
--- NOTE | 2019-01-12 18:11 | ED ---
Abdominal Pain HPI - General Chief Complaint: Abdominal Pain Stated Complaint: Back/Abd Pain Time Seen by Provider: 01/12/19 18:01 Source: patient Mode of arrival: ambulatory Limitations: no limitations - History of Present Illness Initial Comments: 58 year-old female patient presents to the emergency department today for evaluation of right upper quadrant pain with right subscapular pain. Patient states that she's been having this pain for the last 2-3 days. She states at one point he should have pain down the right arm. Patient states she has been nauseated with decreased appetite. She states she has been having chills with denies any known fever. She is reporting loose yellow stool. He states it looks like her food is not digesting. She denies any history of abdominal surgery. Denies any chest pain or shortness of breath. She denies any hematuria, dysuria, urinary frequency, urinary urgency. Patient denies any recent rash, shortness breath, chest pain, numbness, tingling, dizziness, weakness, headache, visual changes, or any other complaints. - Related Data Home Medications Medication Instructions Recorded Confirmed Aspirin EC [Ecotrin Low Dose] 81 mg PO DAILY 04/28/16 11/10/17 Acetaminophen [Tylenol] 1,000 mg PO Q4-6H PRN 11/10/17 11/10/17 Azithromycin [Zithromax] 500 mg PO HS 11/10/17 11/10/17 Fexofenadine/Pseudoephedrine 1 each PO BID 11/10/17 11/10/17 [Rylee-D 12 Hour Tablet] Ibuprofen [Advil] 200 mg PO Q8HR PRN 11/10/17 11/10/17 Previous Rx's Medication Instructions Recorded Clindamycin [Cleocin] 150 mg PO Q6H #40 capsule 11/12/18 Famotidine [Pepcid] 20 mg PO DAILY #30 tablet 01/12/19 Omeprazole 20 mg PO BID #60 tablet. 01/12/19 Allergies Allergy/AdvReac Type Severity Reaction Status Date / Time Quinolones Allergy Severe Unknown Verified 01/12/19 17:52 Sulfa (Sulfonamide Allergy Rash/Hives/Vision Verified 01/12/19 17:52 Antibiotics) Disturbance Review of Systems ROS Statement: Those systems with pertinent positive or pertinent negative responses have been documented in the HPI. ROS Other: All systems not noted in ROS Statement are negative. Past Medical History Past Medical History: Deep Vein Thrombosis (DVT), Osteoarthritis (OA) Additional Past Medical History / Comment(s): fatty liver, ulcers, Shingles, leukoplakia History of Any Multi-Drug Resistant Organisms: None Reported Past Surgical History: Adenoidectomy, Hysterectomy, Tonsillectomy, Tubal Ligation Additional Past Surgical History / Comment(s): bunionectomy x2, hammer toes on both feet. Past Anesthesia/Blood Transfusion Reactions: No Reported Reaction Past Psychological History: Anxiety, Depression Smoking Status: Former smoker Past Alcohol Use History: Rare Past Drug Use History: None Reported - Past Family History Mother Family Medical History: Cancer Additional Family Medical History / Comment(s): basal cell Father Family Medical History: Cancer Additional Family Medical History / Comment(s): basal cell General Exam Limitations: no limitations General appearance: alert, in no apparent distress, other (Physical well- developed, well-nourished adult female patient in no acute distress. Vital signs upon presentation are temperature 98.2F, pulse 71, respirations 18, blood pressure 129/77, pulse ox 98% on room air.) Eye exam: Present: normal appearance, PERRL, EOMI. Absent: scleral icterus, conjunctival injection, periorbital swelling ENT exam: Present: normal exam, normal oropharynx, mucous membranes moist Respiratory exam: Present: normal lung sounds bilaterally. Absent: respiratory distress, wheezes, rales, rhonchi, stridor Cardiovascular Exam: Present: regular rate, normal rhythm, normal heart sounds. Absent: systolic murmur, diastolic murmur, rubs, gallop, clicks GI/Abdominal exam: Present: soft, tenderness (Right upper quadrant, midepigastric. Positive Ahn sign.), normal bowel sounds. Absent: distended, guarding, rebound, rigid Neurological exam: Present: alert, oriented X3, CN II-XII intact Psychiatric exam: Present: normal affect, normal mood Skin exam: Present: warm, dry, intact, normal color. Absent: rash Course Vital Signs 01/12/19 17:52 Temperature 98.2 F Pulse Rate 71 Respiratory 18 Rate Blood Pressure 129/77 O2 Sat by Pulse 98 Oximetry Medical Decision Making - Medical Decision Making 58 year-old female patient presented to the emergency department today for evaluation of midepigastric right upper quadrant abdominal pain. Patient is also reporting nausea and diarrhea. Physical examination did reveal epigastric tenderness, right upper quadrant tenderness with positive Ahn sign. Labs reviewed and are unremarkable. Normal white blood cell count, normal liver enzymes. Urinalysis showed no evidence for blood or infection. Upon reevaluation patient does feel somewhat improved with the medication administration. We will discharge home at this time to follow-up [facility] to discuss possibility of HIDA scan. She does have an appointment with gastroenterology and January 31. She is currently taking omeprazole, will add Pepcid. She'll be given starter pack for Tylenol with codeine and Zofran. Return parameters were discussed in detail. She verbalizes understanding and agrees with this plan. - Lab Data Result diagrams: 01/12/19 18:15 01/12/19 18:15 Lab Results 01/12/19 01/12/19 01/12/19 Range/Units 18:15 18:15 18:15 WBC 3.3 L (3.8-10.6) k/uL RBC 4.22 (3.80-5.40) m/uL Hgb 12.6 (11.4-16.0) gm/dL Hct 37.7 (34.0-46.0) % MCV 89.2 (80.0-100.0) fL MCH 29.9 (25.0-35.0) pg MCHC 33.5 (31.0-37.0) g/dL RDW 12.6 (11.5-15.5) % Plt Count 188 (150-450) k/uL Neutrophils % 56 % Lymphocytes % 31 % Monocytes % 6 % Eosinophils % 3 % Basophils % 1 % Neutrophils # 1.8 (1.3-7.7) k/uL Lymphocytes # 1.0 (1.0-4.8) k/uL Monocytes # 0.2 (0-1.0) k/uL Eosinophils # 0.1 (0-0.7) k/uL Basophils # 0.0 (0-0.2) k/uL Sodium 140 (137-145) mmol/L Potassium 4.1 (3.5-5.1) mmol/L Chloride 106 (98-107) mmol/L Carbon Dioxide 25 (22-30) mmol/L Anion Gap 9 mmol/L BUN 11 (7-17) mg/dL Creatinine 0.64 (0.52-1.04) mg/dL Est GFR (CKD-EPI)AfAm >90 (>60 ml/min/1.73 sqM) Est GFR (CKD-EPI)NonAf >90 (>60 ml/min/1.73 sqM) Glucose 93 (74-99) mg/dL Calcium 9.4 (8.4-10.2) mg/dL Total Bilirubin 0.5 (0.2-1.3) mg/dL AST 21 (14-36) U/L ALT 25 (9-52) U/L Alkaline Phosphatase 62 (38-126) U/L Troponin I <0.012 (0.000-0.034) ng/mL Total Protein 6.9 (6.3-8.2) g/dL Albumin 4.4 (3.5-5.0) g/dL Amylase 53 (30-110) U/L Lipase 65 (23-300) U/L Urine Color Urine Appearance (Clear) Urine pH (5.0-8.0) Ur Specific [place] (1.001-1.035) Urine Protein (Negative) Urine Glucose (UA) (Negative) Urine Ketones (Negative) Urine Blood (Negative) Urine Nitrite (Negative) Urine Bilirubin (Negative) Urine Urobilinogen (<2.0) mg/dL Ur Leukocyte Esterase (Negative) 01/12/19 Range/Units 18:32 WBC (3.8-10.6) k/uL RBC (3.80-5.40) m/uL Hgb (11.4-16.0) gm/dL Hct (34.0-46.0) % MCV (80.0-100.0) fL MCH (25.0-35.0) pg MCHC (31.0-37.0) g/dL RDW (11.5-15.5) % Plt Count (150-450) k/uL Neutrophils % % Lymphocytes % % Monocytes % % Eosinophils % % Basophils % % Neutrophils # (1.3-7.7) k/uL Lymphocytes # (1.0-4.8) k/uL Monocytes # (0-1.0) k/uL Eosinophils # (0-0.7) k/uL Basophils # (0-0.2) k/uL Sodium (137-145) mmol/L Potassium (3.5-5.1) mmol/L Chloride (98-107) mmol/L Carbon Dioxide (22-30) mmol/L Anion Gap mmol/L BUN (7-17) mg/dL Creatinine (0.52-1.04) mg/dL Est GFR (CKD-EPI)AfAm (>60 ml/min/1.73 sqM) Est GFR (CKD-EPI)NonAf (>60 ml/min/1.73 sqM) Glucose (74-99) mg/dL Calcium (8.4-10.2) mg/dL Total Bilirubin (0.2-1.3) mg/dL AST (14-36) U/L ALT (9-52) U/L Alkaline Phosphatase (38-126) U/L Troponin I (0.000-0.034) ng/mL Total Protein (6.3-8.2) g/dL Albumin (3.5-5.0) g/dL Amylase (30-110) U/L Lipase (23-300) U/L Urine Color Light Yellow Urine Appearance Clear (Clear) Urine pH 7.0 (5.0-8.0) Ur Specific [place] 1.007 (1.001-1.035) Urine Protein Negative (Negative) Urine Glucose (UA) Negative (Negative) Urine Ketones Negative (Negative) Urine Blood Negative (Negative) Urine Nitrite Negative (Negative) Urine Bilirubin Negative (Negative) Urine Urobilinogen <2.0 (<2.0) mg/dL Ur Leukocyte Esterase Negative (Negative) - EKG Data -: EKG Interpreted by Al EKG Comments: EKG obtained at 1825 shows normal sinus rhythm with a ventricular rate of 61, ID interval 170, QRS duration 92, QT 426, QTC 428. No evidence of ST elevation or depression. - Radiology Data Radiology results: report reviewed, image reviewed Ultrasound of the right upper quadrant was obtained. Report was reviewed in its entirety. Impression by Dr. Juarez shows no gallstones or dilated ducts. No focal liver defect. No ascites. Disposition Clinical Impression: Abdominal pain Disposition: HOME SELF-CARE Condition: Good Instructions (If sedation given, give patient instructions): Abdominal Pain (ED) Additional Instructions: Follow up with your primary care physician for recheck in 1-2 days. Discuss possible HIDA scan. Keep appointment with your escrow secretary as planned. Return to the emergency department for any new, worsening, or concerning symptoms. Prescriptions: Omeprazole 20 mg PO BID #60 tablet. Famotidine [Pepcid] 20 mg PO DAILY #30 tablet Is patient prescribed a controlled substance at d/c from ED?: No Referrals: Robert Egan MD [Primary Care Provider] - 1-2 days Solomon Coreas MD [STAFF PHYSICIAN] - 1-2 days Time of Disposition: 20:03
[2019-01-12 18:28] LABS: Basophils % (A) 1 %; Eosinophils # (A) 0.1 k/uL (0-0.7); Eosinophils % (A) 3 %; HCT 37.7 % (34.0-46.0); HGB 12.6 gm/dL (11.4-16.0); Lymphocytes % (A) 31 %; MCH 29.9 pg (25.0-35.0); MCHC 33.5 g/dL (31.0-37.0); MCV 89.2 fL (80.0-100.0); Mean Platelet Volume 6.1; Monocytes # (A) 0.2 k/uL (0-1.0); Monocytes % (A) 6 %; Neutrophils # (A) 1.8 k/uL (1.3-7.7); Neutrophils % (A) 56 %; Platelet Count 188 k/uL (150-450); RBC 4.22 m/uL (3.80-5.40); RDW 12.6 % (11.5-15.5); WBC 3.3 k/uL (3.8-10.6)
[2019-01-12 18:37] LABS: ALT 25 U/L (9-52); AST 21 U/L (14-36); African American GFR (CKD) >90 (>60 ml/min/1.73 sqM); Albumin 4.4 g/dL (3.5-5.0); Alkaline Phosphatase 62 U/L (38-126); Amylase 53 U/L (30-110); Anion Gap 9 mmol/L; Blood Urea Nitrogen 11 mg/dL (7-17); Calcium 9.4 mg/dL (8.4-10.2); Carbon Dioxide 25 mmol/L (22-30); Chloride 106 mmol/L (98-107); Glucose 93 mg/dL (74-99); Potassium 4.1 mmol/L (3.5-5.1); Sodium 140 mmol/L (137-145); Total Bilirubin 0.5 mg/dL (0.2-1.3); Total Protein 6.9 g/dL (6.3-8.2)
[2019-01-12 18:39] LABS: Appearance,Urine Clear (Clear); Bilirubin,Urine Negative (Negative); Blood,Urine Negative (Negative); Color,Urine Light Yellow; Glucose,Urine (UA) Negative (Negative); Ketones,Urine Negative (Negative); Leukocyte Esterase,Urine Negative (Negative); Nitrite,Urine Negative (Negative); Protein,Urine Negative (Negative); Specific Gravity,Urine 1.007 (1.001-1.035); Urobilinogen,Urine <2.0 mg/dL (<2.0)
--- NOTE | 2019-01-12 19:44 | US ---
EXAMINATION TYPE: US abdomen limited DATE OF EXAM: 01/12/2019 COMPARISON: CT 2012, MR 2015 CLINICAL HISTORY: RUQ Pain. RUQ pain x 12.5 hours. Nausea. EXAM MEASUREMENTS: Liver Length: 14.2 cm Gallbladder Wall: 0.20 cm CBD: 0.23 cm Right Kidney: 10.7 x 5.8 x 4.2 cm *Limited due to gas. Pancreas: Appears to be wnl Liver: Appears to have increased echogenicity Gallbladder: Appears to be anechoic. Fold seen. Evidence for sonographic Ahn's sign: yes CBD: appears to be wnl Right Kidney: Prominent renal pelvis. IMPRESSION: No gallstones or dilated ducts. No focal liver defect. No ascites.
[2019-01-12] MEDS ORDERED: ACET/COD 300 MG/30 MG STARTER PACK 6 TAB BTL PO STA (20:01)
[2019-01-12] MEDS ORDERED: KETOROLAC 30 MG/ML 1 ML VIAL IVP STA (20:01)
[2019-01-12] MEDS ORDERED: ONDANSETRON 4 MG ODT STARTER PACK 2 TAB BTL PO STA (20:01)
[2019-01-12 20:31] VITALS: BP 127/86; PULSE 63; TEMP 98.7
== END 2019-01-12 20:34 | disposition home or self-care (01) ==
LOC: EC 17:50
DX: R10.11 Right upper quadrant pain (principal); R10.13 Epigastric pain; R11.0 Nausea; R19.7 Diarrhea, unspecified; M79.601 Pain in right arm; M25.511 Pain in right shoulder; R63.8 Other symptoms and signs concerning food and fluid intake; R68.83 Chills (without fever); M19.90 Unspecified osteoarthritis, unspecified site; Z87.891 Personal history of nicotine dependence; Z88.1 Allergy status to other antibiotic agents; Z88.2 Allergy status to sulfonamides; Z79.82 Long term (current) use of aspirin; Z79.899 Other long term (current) drug therapy
CPT/HCPCS: 99285; 96374; 96375 ×2; 96361; 36415; 93005; 80053; 82150; 83690; 84484; 85025; 81003; 76705; J2405; J1885; S0119; J1170

== ENCOUNTER → 2019-02-13 | Outpatient (CLI) | payer OTHER ==
--- NOTE | 2019-02-13 12:27 | NM ---
EXAMINATION TYPE: NM hepatobiliary w EF DATE OF EXAM: 02/13/2019 COMPARISON: Ultrasound abdomen 01/12/2019 HISTORY: Right upper quadrant pain TECHNIQUE: After the intravenous administration of 4.36 mCi Tc 99m Mebrofenin hepatobiliary scintigra phy is performed. Immediate images post injection. FINDINGS: There is satisfactory initial accumulation of tracer by the liver. The gallbladder is visualized wit hin 8 minutes. The small bowel activity is noted within 32 minutes. At one hour 8 ounces of oral en sure plus is given to mimic CCK and gallbladder ejection fraction is calculated at 42 %, in the val l range. Therefore there is no scintigraphic evidence of cystic or common bile duct obstruction to s uggest acute cholecystitis or gallbladder dyskinesia. IMPRESSION: Exam is within normal limits.
== END | disposition home or self-care (01) ==
LOC: RADNMMAIN 06:57
PROVIDERS: ATTEND Family Medicine
DX: R10.11 Right upper quadrant pain (principal)
CPT/HCPCS: 78226; A9537

== ENCOUNTER 2019-03-02 08:00 | Day surgery (SDC) | payer OTHER ==
[~2019-03-02 08:00] MED LIST: LACTATED RINGERS 1,000 ML IV SCH; LIDOCAINE 1% 20 ML VIAL (10MG/ML) FOR IV START INTRADERMA PRN
[2019-03-02 08:21] VITALS: TEMP 98.7
[2019-03-02] MEDS ORDERED: PROPOFOL 10 MG/ML 20 ML VIAL IV ONE (08:44)
[2019-03-02] MEDS ORDERED: GLYCOPYRROLATE 0.2 MG/ML 2 ML VIAL ONE (08:44)
[2019-03-02] MEDS ORDERED: LIDOCAINE 1% INJ 10MG/ML (20 ML MDV) ONE (08:44)
--- NOTE | 2019-03-02 09:40 | P.PCN ---
Date of Procedure: 03/02/19 Description of Procedure: Brief history: Patient is a pleasant scheduled for an elective upper endoscopy as well as colonoscopy as a part of evaluation of epigastric abdominal pain and a history of polyps. Patient has a prior history of peptic ulcer disease 6 years ago status post EGD with Dr. gilliam. She didn't having right upper quadrant and epigastric abdominal pain started as burning heartburn with some improvement using PPI twice a day and Pepcid daily at bedtime. Procedure performed: Esophagogastroduodenoscopy with biopsy Colonoscopy Estimated blood loss: Minimal. Preoperative diagnosis: Epigastric abdominal pain, personal history of colon polyps Anesthesia: MAC Procedure: After informed consent was obtained from the patient was brought into the endoscopy unit and IV sedation was administered by anesthesia under continuous monitoring. Initially upper endoscopy was done. The Olympus GF 190 video endoscope was inserted into the mouth and esophagus intubated without any difficulty and was gradually advanced into the stomach and duodenum and carefully examined. The bulb and second part of the duodenum appeared normal, with biopsies taken. The scope was then withdrawn into the stomach adequately insufflated with air and upon careful examination the antrum and body, cardia and fundus appeared normal, except for some mild punctate erythema in the antrum suggestive of mild antritis with biopsies of the antrum and body taken. The scope was then withdrawn into the esophagus. The GE junction was located at 40 cm to the incisors. No erythema erosions or ulcerations at the GE junction, however it appears somewhat irregular, with biopsies taken to rule out Duggan's esophagus. Rest of the esophagus appeared normal. Patient tolerated the procedure well. At this time the patient continued to remain sedation. Initial digital rectal examination was normal. Olympus CF 190 video colonoscope was then inserted into the rectum and gradually advanced to the cecum without any difficulty. Careful examination was performed as the scope was gradually being withdrawn. The prep was excellent. The cecum, ascending colon, transverse colon, descending colon, sigmoid colon and rectum appeared normal. Retroflexion was performed in the rectum and no lesions were noted, mild internal hemorrhoids noted. Patient tolerated the procedure well. Impression: 1. Mild gastritis antrum body, biopsied. Biopsies of the duodenum and GE junction to rule out Duggan's esophagus or reflux esophagitis . 2. Normal-appearing colon from rectum to cecum. Recommendations: Findings of this examination were discussed with the patient as well as her daughter. Okay to resume diet. Await pathology from biopsies. Follow up in gastroenterology clinic as previously scheduled. Continue current medical management. Recommendation is for repeat colonoscopy in 5 years for personal history of colon polyps.
[2019-03-02 09:55] VITALS: BP 113/74; PULSE 79; RESP 16
== END 2019-03-02 10:22 | disposition home or self-care (01) ==
LOC: ORWHC2ENDO 08:00
PROVIDERS: ATTEND Internal Medicine
DX: K22.70 Barrett's esophagus without dysplasia (principal); K29.80 Duodenitis without bleeding; K29.50 Unspecified chronic gastritis without bleeding; K64.8 Other hemorrhoids; Z86.010 Personal history of colon polyps; Z87.11 Personal history of peptic ulcer disease; Z88.2 Allergy status to sulfonamides; Z88.1 Allergy status to other antibiotic agents; Z86.718 Personal history of other venous thrombosis and embolism; Z87.891 Personal history of nicotine dependence; Z79.82 Long term (current) use of aspirin; Z79.899 Other long term (current) drug therapy; Z90.710 Acquired absence of both cervix and uterus; Z98.51 Tubal ligation status; Z90.89 Acquired absence of other organs; Z86.19 Personal history of other infectious and parasitic diseases
CPT/HCPCS: 88305; 45378; 43239; J2001; J2704

== ENCOUNTER 2019-03-19 18:48 | Emergency (ER) | payer OTHER ==
[2019-03-19 18:52] VITALS: TEMP 97.9
[2019-03-19] MEDS ORDERED: MORPHINE SULFATE 4 MG/ML SYRINGE IV STA (19:14)
--- NOTE | 2019-03-19 19:33 | ED ---
General Adult HPI - General Source: patient, RN notes reviewed, old records reviewed Mode of arrival: ambulatory Limitations: no limitations <Kwasi Lewis - Last Filed: 03/19/19 19:53> <Rigoberto Morgan - Last Filed: 03/19/19 21:47> - General Chief complaint: Dental/Oral Stated complaint: dental pain Time Seen by Provider: 03/19/19 18:54 - History of Present Illness Initial comments: 58-year-old female patient past history significant for status post hysterectomy and tubal ligation, poor dentition presents to ED for chief complaint of dental pain and headache. Patient reports that she has been having dental pain and infection for approximately 2 weeks. Patient has been seen by her dentist as well as her primary care provider. Patient has one day left of Augmentin. Was called in a prescription of clindamycin by her primary care provider. Patient reports that she was in the pharmacy where she is complaining of a headache and he recommended she come to the ER. She reports that she has been having approximately 3 days of right temporal headache. She reports that the pain is reading up from her jaw to the right temporal region. The headache has been relatively constant in nature. Denies any nausea or vomiting. Patient does report that she has been having a waxing and waning blurry vision behind her right eye. This does feel somewhat similar to her cluster headaches that she expressed the past however they do not normally last this long. Denies any other complaints at this time. Systemic: Pt denies fatigue, fever/chills, rash. Pt denies weakness, night sweats, weight loss. Neuro: Pt denies syncope or pre-syncope. HEENT: Pt denies ocular discharge or irritation, otalgia, rhinorrhea, pharyngitis or notable lymphadenopathy. Cardiopulmonary: Pt denies chest pain, SOB, heart palpitations, dyspnea on exertion. Abdominal/GI: Pt denies abdominal pain, n/v/d. : Pt denies dysuria, burning w/ urination, frequency/urgency. Denies new onset urinary or bowel incontinence. MSK: Pt denies myalgia, loss of strength or function in extremities. Neuro: Pt denies new onset weakness, paresthesias. (Kwasi Lewis) - Related Data Home Medications Medication Instructions Recorded Confirmed Aspirin EC [Ecotrin Low Dose] 81 mg PO DAILY 04/28/16 02/27/19 Acetaminophen [Tylenol] 1,000 mg PO Q4-6H PRN 11/10/17 03/02/19 Famotidine [Pepcid] 20 mg PO HS 02/27/19 03/02/19 Previous Rx's Medication Instructions Recorded Omeprazole 20 mg PO BID #60 tablet. 01/12/19 Allergies Allergy/AdvReac Type Severity Reaction Status Date / Time Quinolones Allergy Severe Unknown Verified 03/19/19 18:52 Sulfa (Sulfonamide Allergy Rash/Hives/Vision Verified 03/19/19 18:52 Antibiotics) Disturbance Review of Systems ROS Other: All systems not noted in ROS Statement are negative. <Kwasi Lewis - Last Filed: 03/19/19 19:53> ROS Other: All systems not noted in ROS Statement are negative. <Rigoberto Morgan - Last Filed: 03/19/19 21:47> ROS Statement: Those systems with pertinent positive or pertinent negative responses have been documented in the HPI. Past Medical History Past Medical History: Deep Vein Thrombosis (DVT), Osteoarthritis (OA) Additional Past Medical History / Comment(s): ULCERS SINCE CHILDHOOD. Fatty liver. Shingles. Leukoplakia History of Any Multi-Drug Resistant Organisms: None Reported Past Surgical History: Adenoidectomy, Hysterectomy, Tonsillectomy, Tubal Ligation Additional Past Surgical History / Comment(s): bunionectomy x2, hammer toes on both feet. Past Anesthesia/Blood Transfusion Reactions: No Reported Reaction, Motion Sickness Past Psychological History: Anxiety, Depression Smoking Status: Former smoker Past Alcohol Use History: Rare Past Drug Use History: None Reported - Past Family History Mother Family Medical History: Cancer Additional Family Medical History / Comment(s): basal cell Father Family Medical History: Cancer Additional Family Medical History / Comment(s): basal cell <Kwasi Lewis - Last Filed: 03/19/19 19:53> General Exam Limitations: no limitations <Kwasi Lewis - Last Filed: 03/19/19 19:53> - General Exam Comments Initial Comments: Constitutional: NAD, AOX3, Pt has pleasant affect. HEENT: NC/AT, trachea midline, neck supple, no lymphadenopathy. Posterior pharynx non erythematous, without exudates. External ears appear normal, without discharge. Mucous membranes moist. Eyes PERRLA, EOM intact. There is no scleral icterus. No pallor noted. Right lower incisor region mild tenderness to palpation, small amount erythema, no drainable abscess. Cardiopulmonary: RRR, no murmurs, rubs or gallops, no JVD noted. Lungs CTAB in anterior and posterior deutsch. No peripheral edema. Abdominal exam: Abdomen soft and non-distended. Abdomen non-tender to palpation in all 4 quadrants. Bowel sounds active in LLQ. No hepatosplenomegaly. No ecchymosis Neuro: CN II-XII intact. No nuchal rigidity. No raccon eyes, no de anda sign, no hemotympanum. No cervical spinal tenderness. NIH 0. Right temporal region mildly tender to palpation, no skin changes, no palpable cord. MSK: No posterior calf tenderness bilaterally, homans sign negative bilaterally. Posterior tibialis and radial pulse +2 bilaterally. Sensation intact in upper and lower extremities. Full active ROM in upper and lower extremities, 5/5 st regnth. (Kwasi Lewis) Course Vital Signs 03/19/19 18:49 Temperature 97.9 F Pulse Rate 82 Respiratory 18 Rate Blood Pressure 130/81 O2 Sat by Pulse 98 Oximetry Medical Decision Making - Lab Data Result diagrams: 03/19/19 19:30 <Kwasi Lewis - Last Filed: 03/19/19 19:53> - Lab Data Result diagrams: 03/19/19 19:30 03/19/19 19:30 <Rigoberto Morgan - Last Filed: 03/19/19 21:47> - Medical Decision Making 58-year-old female patient presents ED for chief complaint of headache and dental pain. Headache is a poorly been since Wednesday. This was somewhat similar to her cluster headaches in the past however duration is longer. Vital signs are stable, afebrile. Physical exam doesn't display rate temporal region to be tender to palpation. Until exam does reveal mild amount of gum erythema. She did take Augmentin today. Patient currently being evaluated for possibility of temporal arteritis, patient is signed out to Dr. Phelps. Pt is declining CT due to radiation burden. (Kwasi Lewis) Patient care was signed out to me by previous shift physician catalog library assistant Abdiel. Briefly, patient is a 58-year-old female presents today with right-sided headache. Patient has a history of cluster headaches per she reports that this is typical of her cluster headaches. She does not have any lacrimation or risk factors to suggest that her symptoms today are cluster headache. Patient had recent treatment for sinusitis and dental procedure. He did have some pain over the right periorbital region. When the patient was sent out to me there was pe nding ESR levels to evaluate for the possibility of temporal arteritis. ESR is negative. Patient was seen and evaluated at bedside she is well-appearing. She states that the morphine she received by previous provider did not provide her with any relief. Patient was given a headache cocktail. Patient reevaluated after headache cocktail with improvement of symptoms. Patient to take [id number] Naprosyn when necessary headaches. Last follow-up with primary care physician upon discharge. (Rigoberto Morgan) - Lab Data Lab Results 03/19/19 03/19/19 Range/Units 19:30 19:30 WBC 5.5 (3.8-10.6) k/uL RBC 4.52 (3.80-5.40) m/uL Hgb 13.0 (11.4-16.0) gm/dL Hct 40.0 (34.0-46.0) % MCV 88.6 (80.0-100.0) fL MCH 28.7 (25.0-35.0) pg MCHC 32.4 (31.0-37.0) g/dL RDW 13.2 (11.5-15.5) % Plt Count 183 (150-450) k/uL Neutrophils % 70 % Lymphocytes % 21 % Monocytes % 4 % Eosinophils % 2 % Basophils % 1 % Neutrophils # 3.9 (1.3-7.7) k/uL Lymphocytes # 1.2 (1.0-4.8) k/uL Monocytes # 0.2 (0-1.0) k/uL Eosinophils # 0.1 (0-0.7) k/uL Basophils # 0.0 (0-0.2) k/uL ESR 11 (0-20) mm/hr Sodium 138 (137-145) mmol/L Potassium 4.3 (3.5-5.1) mmol/L Chloride 109 H (98-107) mmol/L Carbon Dioxide 21 L (22-30) mmol/L Anion Gap 8 mmol/L BUN 19 H (7-17) mg/dL Creatinine 0.80 (0.52-1.04) mg/dL Est GFR (CKD-EPI)AfAm >90 (>60 ml/min/1.73 sqM) Est GFR (CKD-EPI)NonAf 83 (>60 ml/min/1.73 sqM) Glucose 92 (74-99) mg/dL Calcium 9.0 (8.4-10.2) mg/dL Total Bilirubin 0.3 (0.2-1.3) mg/dL AST 20 (14-36) U/L ALT 13 (4-34) U/L Alkaline Phosphatase 63 (38-126) U/L C-Reactive Protein <5.0 (<10.0) mg/L Total Protein 6.8 (6.3-8.2) g/dL Albumin 4.2 (3.5-5.0) g/dL Disposition <Kwasi Lewis J - Last Filed: 03/19/19 19:53> Is patient prescribed a controlled substance at d/c from ED?: No Time of Disposition: 21:47 <Rigoberto Morgan - Last Filed: 03/19/19 21:47> Clinical Impression: Headache Disposition: HOME SELF-CARE Condition: Good Instructions (If sedation given, give patient instructions): Acute Headache (ED) Referrals: Robert Egan MD [Primary Care Provider] - 1-2 days
[2019-03-19 19:39] LABS: Basophils % (A) 1 %; Eosinophils # (A) 0.1 k/uL (0-0.7); Eosinophils % (A) 2 %; Lymphocytes # (A) 1.2 k/uL (1.0-4.8); Lymphocytes % (A) 21 %; MCH 28.7 pg (25.0-35.0); MCHC 32.4 g/dL (31.0-37.0); MCV 88.6 fL (80.0-100.0); Mean Platelet Volume 7.2; Monocytes # (A) 0.2 k/uL (0-1.0); Monocytes % (A) 4 %; Neutrophils # (A) 3.9 k/uL (1.3-7.7); Neutrophils % (A) 70 %; Platelet Count 183 k/uL (150-450); RBC 4.52 m/uL (3.80-5.40); RDW 13.2 % (11.5-15.5); WBC 5.5 k/uL (3.8-10.6)
[2019-03-19 20:04] LABS: ALT 13 U/L (4-34); AST 20 U/L (14-36); African American GFR (CKD) >90 (>60 ml/min/1.73 sqM); Albumin 4.2 g/dL (3.5-5.0); Alkaline Phosphatase 63 U/L (38-126); Anion Gap 8 mmol/L; Blood Urea Nitrogen 19 mg/dL (7-17); C Reactive Protein <5.0 mg/L (<10.0); Carbon Dioxide 21 mmol/L (22-30); Chloride 109 mmol/L (98-107); Glucose 92 mg/dL (74-99); Non-African American GFR(CKD) 83 (>60 ml/min/1.73 sqM); Potassium 4.3 mmol/L (3.5-5.1); Sodium 138 mmol/L (137-145); Total Bilirubin 0.3 mg/dL (0.2-1.3); Total Protein 6.8 g/dL (6.3-8.2)
[2019-03-19 20:44] LABS: Erythrocyte Sedimentation Rate 11 mm/hr (0-20)
[2019-03-19] MEDS ORDERED: KETOROLAC 30 MG/ML 1 ML VIAL IVP STA (20:57)
[2019-03-19] MEDS ORDERED: diphenhydrAMINE 50 MG/ML 1 ML VIAL IVP STA (20:57)
[2019-03-19] MEDS ORDERED: SODIUM CHLORIDE 0.9% 1,000 ML IV STA (20:57)
[2019-03-19] MEDS ORDERED: ONDANSETRON 4 MG/2 ML VIAL IVP STA (20:57)
--- NOTE | 2019-03-19 21:48 | ED ---
Medical Decision Making - Lab Data Result diagrams: 03/19/19 19:30 03/19/19 19:30 Lab Results 03/19/19 03/19/19 Range/Units 19:30 19:30 WBC 5.5 (3.8-10.6) k/uL RBC 4.52 (3.80-5.40) m/uL Hgb 13.0 (11.4-16.0) gm/dL Hct 40.0 (34.0-46.0) % MCV 88.6 (80.0-100.0) fL MCH 28.7 (25.0-35.0) pg MCHC 32.4 (31.0-37.0) g/dL RDW 13.2 (11.5-15.5) % Plt Count 183 (150-450) k/uL Neutrophils % 70 % Lymphocytes % 21 % Monocytes % 4 % Eosinophils % 2 % Basophils % 1 % Neutrophils # 3.9 (1.3-7.7) k/uL Lymphocytes # 1.2 (1.0-4.8) k/uL Monocytes # 0.2 (0-1.0) k/uL Eosinophils # 0.1 (0-0.7) k/uL Basophils # 0.0 (0-0.2) k/uL ESR 11 (0-20) mm/hr Sodium 138 (137-145) mmol/L Potassium 4.3 (3.5-5.1) mmol/L Chloride 109 H (98-107) mmol/L Carbon Dioxide 21 L (22-30) mmol/L Anion Gap 8 mmol/L BUN 19 H (7-17) mg/dL Creatinine 0.80 (0.52-1.04) mg/dL Est GFR (CKD-EPI)AfAm >90 (>60 ml/min/1.73 sqM) Est GFR (CKD-EPI)NonAf 83 (>60 ml/min/1.73 sqM) Glucose 92 (74-99) mg/dL Calcium 9.0 (8.4-10.2) mg/dL Total Bilirubin 0.3 (0.2-1.3) mg/dL AST 20 (14-36) U/L ALT 13 (4-34) U/L Alkaline Phosphatase 63 (38-126) U/L C-Reactive Protein <5.0 (<10.0) mg/L Total Protein 6.8 (6.3-8.2) g/dL Albumin 4.2 (3.5-5.0) g/dL Disposition Clinical Impression: Headache Disposition: HOME SELF-CARE Condition: Good Instructions (If sedation given, give patient instructions): Acute Headache (ED) Additional Instructions: Naprosyn 500mg BID as needed for headache Follow-up with oral surgeon or dental complaints Is patient prescribed a controlled substance at d/c from ED?: No Referrals: Robert Egan MD [Primary Care Provider] - 1-2 days Time of Disposition: 21:48
[2019-03-19 22:06] VITALS: BP 121/74; PULSE 78; RESP 16
== END 2019-03-19 22:00 | disposition home or self-care (01) ==
LOC: EC 18:48
DX: R51 Headache (principal); K08.89 Other specified disorders of teeth and supporting structures; H53.8 Other visual disturbances; Z98.818 Other dental procedure status; M19.90 Unspecified osteoarthritis, unspecified site; Z87.891 Personal history of nicotine dependence; Z88.1 Allergy status to other antibiotic agents; Z88.2 Allergy status to sulfonamides; Z79.82 Long term (current) use of aspirin; Z79.899 Other long term (current) drug therapy; Z87.19 Personal history of other diseases of the digestive system; Z53.29 Procedure and treatment not carried out because of patient's decision for other reasons
CPT/HCPCS: 36415; 80053; 85652; 85025; 86140; 99284; 96374; 96375 ×3; 96361; J2270; J1200; J2405; J1885

== ENCOUNTER 2019-07-09 09:28 | Observation (INO) | payer OTHER ==
[2019-07-09] MEDS ORDERED: SODIUM CHLORIDE 0.9% 500 ML 500 ML IV STA (09:45)
[2019-07-09] MEDS ORDERED: ASPIRIN 81 MG PO STA (09:45)
[2019-07-09] MEDS ORDERED: LORazepam 2 MG/ML INJ IV STA (09:46)
--- NOTE | 2019-07-09 09:49 | ED ---
Arrhythmia/Palpitations HPI - General Chief Complaint: Arrhythmia/Palpitations Stated Complaint: racing heart Time Seen by Provider: 07/09/19 09:36 Source: patient, RN notes reviewed Mode of arrival: ambulatory Limitations: no limitations - History of Present Illness Initial Comments: This a 58-year-old female presents emergency Department chief complaint of palpitations, dizziness, diaphoretic episodes. Patient states that she went to bed late last night around 3:30 AM this morning. She states that she felt her heart was racing or chest stated she had some discomfort, tightness of her chest. Patient states that she took some Xanax which helped her sleep. She states she awoke around 9 with some her symptoms stating that her chest was tight, heart was racing and she was very sweaty. Patient states that she recently had a stress test because she's had symptoms at this past which was negative. Patient states she just feels different this time. Patient denies any abdominal pain no nausea vomiting. Denies any significant back pain at this time. - Related Data Home Medications Medication Instructions Recorded Confirmed Aspirin EC [Ecotrin Low Dose] 81 mg PO DAILY 04/28/16 07/09/19 Acetaminophen [Tylenol] 1,000 mg PO Q4-6H PRN 11/10/17 07/09/19 Famotidine [Pepcid] 20 mg PO HS 02/27/19 07/09/19 Omeprazole 20 mg PO DAILY 07/09/19 07/09/19 Allergies Allergy/AdvReac Type Severity Reaction Status Date / Time Quinolones Allergy Severe Unknown Verified 07/09/19 11:07 Sulfa (Sulfonamide Allergy Rash/Hives/Vision Verified 07/09/19 11:07 Antibiotics) Disturbance Review of Systems ROS Statement: Those systems with pertinent positive or pertinent negative responses have been documented in the HPI. ROS Other: All systems not noted in ROS Statement are negative. Past Medical History Past Medical History: Deep Vein Thrombosis (DVT), GERD/Reflux, Osteoarthritis (OA) Additional Past Medical History / Comment(s): ULCERS SINCE CHILDHOOD. Fatty liver. Shingles. Leukoplakia History of Any Multi-Drug Resistant Organisms: None Reported Past Surgical History: Adenoidectomy, Hysterectomy, Tonsillectomy, Tubal Ligation Additional Past Surgical History / Comment(s): bunionectomy x2, hammer toes on both feet. Past Anesthesia/Blood Transfusion Reactions: No Reported Reaction, Motion Sickness Past Psychological History: Anxiety, Depression Smoking Status: Former smoker Past Alcohol Use History: Rare Past Drug Use History: None Reported - Past Family History Mother Family Medical History: Cancer Additional Family Medical History / Comment(s): basal cell Father Family Medical History: Cancer Additional Family Medical History / Comment(s): basal cell General Exam Limitations: no limitations General appearance: alert, in no apparent distress, anxious Head exam: Present: atraumatic, normocephalic, normal inspection Eye exam: Present: normal appearance, PERRL, EOMI. Absent: scleral icterus, conjunctival injection, periorbital swelling ENT exam: Present: normal exam, normal oropharynx, mucous membranes moist, TM's normal bilaterally Neck exam: Present: normal inspection, full ROM. Absent: tenderness, meningi smus, lymphadenopathy Respiratory exam: Present: normal lung sounds bilaterally. Absent: respiratory distress, wheezes, rales, rhonchi, stridor Cardiovascular Exam: Present: normal rhythm, tachycardia, normal heart sounds. Absent: systolic murmur, diastolic murmur, rubs, gallop, clicks GI/Abdominal exam: Present: soft, normal bowel sounds. Absent: distended, tenderness, guarding, rebound, rigid Extremities exam: Present: other (Pedal pulses equal bilaterally). Absent: pedal edema Course Vital Signs 07/09/19 07/09/19 07/09/19 09:32 09:52 10:00 Temperature 98.1 F Pulse Rate 113 H 93 80 Respiratory 16 18 Rate Blood Pressure 127/66 135/81 O2 Sat by Pulse 99 96 Oximetry 07/09/19 10:30 Temperature Pulse Rate 82 Respiratory 18 Rate Blood Pressure 124/78 O2 Sat by Pulse 100 Oximetry EKG Findings - EKG Comments: EKG Findings:: EKG performed at 9:39, sinus rhythm rate of 96 OK 140 QRS 92 QT/QTC 372/469 Medical Decision Making - Medical Decision Making Patient's had persistent palpitations, chest pressure. Patient's workup is negative this time though patient be admitted for cardiology evaluation - Lab Data Result diagrams: 07/09/19 09:45 07/09/19 09:45 Lab Results 07/09/19 07/09/19 07/09/19 Range/Units 09:45 09:45 09:45 WBC 2.8 L (3.8-10.6) k/uL RBC 4.39 (3.80-5.40) m/uL Hgb 12.2 (11.4-16.0) gm/dL Hct 37.9 (34.0-46.0) % MCV 86.4 (80.0-100.0) fL MCH 27.7 (25.0-35.0) pg MCHC 32.1 (31.0-37.0) g/dL RDW 12.7 (11.5-15.5) % Plt Count 178 (150-450) k/uL Neutrophils % 53 % Lymphocytes % 32 % Monocytes % 7 % Eosinophils % 3 % Basophils % 1 % Neutrophils # 1.5 (1.3-7.7) k/uL Lymphocytes # 0.9 L (1.0-4.8) k/uL Monocytes # 0.2 (0-1.0) k/uL Eosinophils # 0.1 (0-0.7) k/uL Basophils # 0.0 (0-0.2) k/uL PT 9.8 (9.0-12.0) sec INR 0.9 (<1.2) APTT 23.2 (22.0-30.0) sec D-Dimer 0.43 (<0.60) mg/L FEU Sodium 139 (137-145) mmol/L Potassium 3.6 (3.5-5.1) mmol/L Chloride 106 (98-107) mmol/L Carbon Dioxide 25 (22-30) mmol/L Anion Gap 8 mmol/L BUN 12 (7-17) mg/dL Creatinine 0.58 (0.52-1.04) mg/dL Est GFR (CKD-EPI)AfAm >90 (>60 ml/min/1.73 sqM) Est GFR (CKD-EPI)NonAf >90 (>60 ml/min/1.73 sqM) Glucose 105 H (74-99) mg/dL Calcium 9.3 (8.4-10.2) mg/dL Magnesium 1.9 (1.6-2.3) mg/dL Total Bilirubin 0.5 (0.2-1.3) mg/dL AST 32 (14-36) U/L ALT 29 (4-34) U/L Alkaline Phosphatase 59 (38-126) U/L Troponin I (0.000-0.034) ng/mL Total Protein 6.4 (6.3-8.2) g/dL Albumin 3.9 (3.5-5.0) g/dL 07/09/19 Range/Units 09:45 WBC (3.8-10.6) k/uL RBC (3.80-5.40) m/uL Hgb (11.4-16.0) gm/dL Hct (34.0-46.0) % MCV (80.0-100.0) fL MCH (25.0-35.0) pg MCHC (31.0-37.0) g/dL RDW (11.5-15.5) % Plt Count (150-450) k/uL Neutrophils % % Lymphocytes % % Monocytes % % Eosinophils % % Basophils % % Neutrophils # (1.3-7.7) k/uL Lymphocytes # (1.0-4.8) k/uL Monocytes # (0-1.0) k/uL Eosinophils # (0-0.7) k/uL Basophils # (0-0.2) k/uL PT (9.0-12.0) sec INR (<1.2) APTT (22.0-30.0) sec D-Dimer (<0.60) mg/L FEU Sodium (137-145) mmol/L Potassium (3.5-5.1) mmol/L Chloride (98-107) mmol/L Carbon Dioxide (22-30) mmol/L Anion Gap mmol/L BUN (7-17) mg/dL Creatinine (0.52-1.04) mg/dL Est GFR (CKD-EPI)AfAm (>60 ml/min/1.73 sqM) Est GFR (CKD-EPI)NonAf (>60 ml/min/1.73 sqM) Glucose (74-99) mg/dL Calcium (8.4-10.2) mg/dL Magnesium (1.6-2.3) mg/dL Total Bilirubin (0.2-1.3) mg/dL AST (14-36) U/L ALT (4-34) U/L Alkaline Phosphatase (38-126) U/L Troponin I <0.012 (0.000-0.034) ng/mL Total Protein (6.3-8.2) g/dL Albumin (3.5-5.0) g/dL Disposition Clinical Impression: Chest pain, Palpitations Disposition: ADMITTED IP TO THIS [facility] Condition: Stable Referrals: Robert Egan MD [Primary Care Provider] - 1-2 days
[2019-07-09 09:56] LABS: Basophils % (A) 1 %; Eosinophils # (A) 0.1 k/uL (0-0.7); Eosinophils % (A) 3 %; HCT 37.9 % (34.0-46.0); HGB 12.2 gm/dL (11.4-16.0); Lymphocytes # (A) 0.9 k/uL (1.0-4.8); Lymphocytes % (A) 32 %; MCH 27.7 pg (25.0-35.0); MCHC 32.1 g/dL (31.0-37.0); MCV 86.4 fL (80.0-100.0); Mean Platelet Volume 7.8; Monocytes # (A) 0.2 k/uL (0-1.0); Monocytes % (A) 7 %; Neutrophils # (A) 1.5 k/uL (1.3-7.7); Neutrophils % (A) 53 %; Platelet Count 178 k/uL (150-450); RBC 4.39 m/uL (3.80-5.40); RDW 12.7 % (11.5-15.5); WBC 2.8 k/uL (3.8-10.6)
[2019-07-09 10:03] LABS: ALT 29 U/L (4-34); AST 32 U/L (14-36); African American GFR (CKD) >90 (>60 ml/min/1.73 sqM); Albumin 3.9 g/dL (3.5-5.0); Alkaline Phosphatase 59 U/L (38-126); Anion Gap 8 mmol/L; Blood Urea Nitrogen 12 mg/dL (7-17); Calcium 9.3 mg/dL (8.4-10.2); Carbon Dioxide 25 mmol/L (22-30); Chloride 106 mmol/L (98-107); Glucose 105 mg/dL (74-99); Magnesium 1.9 mg/dL (1.6-2.3); Non-African American GFR(CKD) >90 (>60 ml/min/1.73 sqM); Potassium 3.6 mmol/L (3.5-5.1); Sodium 139 mmol/L (137-145); Total Bilirubin 0.5 mg/dL (0.2-1.3); Total Protein 6.4 g/dL (6.3-8.2)
--- NOTE | 2019-07-09 10:11 | XR ---
EXAMINATION TYPE: XR chest 2V DATE OF EXAM ORDERED: 07/09/2019 HISTORY: dysrhythmia. REFERENCE: None. FINDINGS: The lungs are clear. Pleural spaces are clear. Heart size is normal. IMPRESSION: NORMAL CHEST.
[2019-07-09 10:17] LABS: D-Dimer 0.43 mg/L FEU (<0.60); INR 0.9 (<1.2); Partial Thromboplastin Time 23.2 sec (22.0-30.0); Prothrombin Time 9.8 sec (9.0-12.0)
[2019-07-09] MEDS ORDERED: NITROGLYCERIN SL TABS 0.4 MG TAB SUBLINGUAL PRN (11:27)
[2019-07-09] MEDS ORDERED: HEPARIN SODIUM,PORCINE 5,000 UNIT/ML 1 ML VIAL IV PRN (11:27)
[2019-07-09] MEDS ORDERED: HEPARIN SODIUM,PORCINE 5,000 UNIT/ML 1 ML VIAL IV ONE (11:27)
[2019-07-09] MEDS: HEPARIN SOD,PORK IN 0.45% NACL 25,000 UNIT in 0.45% NACL 1 250ML.BAG IV SCH ×2 (11:37→18:54)
[2019-07-09] MEDS ORDERED: [UNRECOGNIZED DRUG - OTHER] PO PRN (14:05)
[2019-07-09] MEDS ORDERED: ALPRAZolam 0.25 MG TAB PO PRN (14:05)
[2019-07-09] MEDS ORDERED: ACETAMINOPHEN TAB 500 MG TAB PO PRN (14:05)
--- NOTE | 2019-07-09 14:37 | P.HPIM ---
History of Present Illness H&P Date: 07/09/19 Chief Complaint: Heart racing up fast Patient is a 58 old female with a known history of osteoarthritis, GERD and history of superficial vein thrombosis, was not on anticoagulation previously, anxiety/depression and history of smoking quit 3 years ago came to the hospital with the complaints of heart racing of fast associated with dizziness, lightheadedness and diaphoresis. Patient says that she was making masks and went to bed late around 3:30 AM. Before going to bed she felt like heart racing of fast and took small dose of Xanax which seemed to help her sleep. She woke up around 9 AM this morning and felt like heart racing of fast again associated with chest tightness and diaphoresis. Patient also felt numbness in her left arm and also mild short of breath. Patient is also complaining of lower posterior chest pain with deep breathing. Denied any complaints of cough or sputum production. No fever no chills. No sore throat or runny nose. No nausea vomiting or abdominal pain. No diarrhea. Denied any recent illnesses. Patient has been at home last few weeks but she is moving around the house. Denied any [id number] pain medication use. Patient says that she had 2 episodes of panic attacks during the last 2 weeks. Patient states that she had negative stress tests in fall 2018. Chest x-ray showed no acute cardio pulmonary process. EKG showed normal sinus rhythm with heart rate around 96, WBC 2.8, absolute lymphocytes 0.9, d-dimer 0.43 not elevated Troponin 1 negative Liver enzymes are not elevated. Review of Systems Constitutional: Patient denies any fever or chills . No generalized weakness or weight loss. Abdomen: Patient denied nausea vomiting and diarrhea and abdominal pain. Cardiovascular: Patient denies any chest pain or short of breath. Patient does have palpitations. No leg swelling Respiratory: patient denied any cough is from production. No shortness of breath Neurologic: Patient denied any numbness or tingling headache. Musculoskeletal: Patient denies any complaints of joint swelling or deformity. Skin: Negative Psychiatric: Negative Endocrine: No heat or cold intolerance. No recent weight gain. Genitourinary: No dysuria or hematuria. All other 14 point ROS negative except the above Past Medical History Past Medical History: Deep Vein Thrombosis (DVT), GERD/Reflux, Osteoarthritis (OA) Additional Past Medical History / Comment(s): ULCERS SINCE CHILDHOOD, Fatty liver, Shingles, Leukoplakia removed from gums, another spot showing up in gums now 07/09/19, recent stress test in fall with Dr. Oro - negative findings, History of Any Multi-Drug Resistant Organisms: None Reported Past Surgical History: Adenoidectomy, Hysterectomy, Tonsillectomy, Tubal Ligation Additional Past Surgical History / Comment(s): bunionectomy x2, hammer toes on both feet, right ovary still in place with cyst. Past Anesthesia/Blood Transfusion Reactions: Motion Sickness Past Psychological History: Anxiety, Depression Smoking Status: Former smoker Past Alcohol Use History: Rare Additional Past Alcohol Use History / Comment(s): Smokes approx. 10 cigarettes per day. Smoked approx. 2 PPD since early . Past Drug Use History: None Reported - Past Family History Mother Family Medical History: Cancer Additional Family Medical History / Comment(s): basal cell, lung cancer with ri ght upper lobectomy, double mastectomy from breast cancer followed by radiation. Father Family Medical History: AFIB, Cancer Additional Family Medical History / Comment(s): basal cell, enlarged heart from mesothelioma Medications and Allergies Home Medications Medication Instructions Recorded Confirmed Type Aspirin EC [Ecotrin Low Dose] 81 mg PO DAILY 04/28/16 07/09/19 History Acetaminophen [Tylenol] 1,000 mg PO Q4-6H PRN 11/10/17 07/09/19 History Famotidine [Pepcid] 20 mg PO HS 02/27/19 07/09/19 History ALPRAZolam [Xanax] 0.125 mg PO TID PRN 07/09/19 07/09/19 History Chlorpheniramine/Dextromethorp 1 tab PO Q4H PRN 07/09/19 07/09/19 History [Coricidin Hbp Cough & Cold Tab] Omeprazole 20 mg PO DAILY 07/09/19 07/09/19 History Allergies Allergy/AdvReac Type Severity Reaction Status Date / Time Quinolones Allergy Severe Unknown Verified 07/09/19 11:07 Sulfa (Sulfonamide Allergy Rash/Hives/Vision Verified 07/09/19 11:07 Antibiotics) Disturbance Physical Exam Vitals: Vital Signs Temp Pulse Pulse Resp BP BP Pulse Ox 07/09/19 13:50 16 07/09/19 13:41 97.6 F 72 16 119/75 98 07/09/19 12:34 98.2 F 81 18 141/89 96 07/09/19 11:44 82 16 127/79 97 07/09/19 10:30 82 18 124/78 100 07/09/19 10:00 80 18 135/81 96 07/09/19 09:52 93 07/09/19 09:32 98.1 F 113 H 16 127/66 99 Intake and Output 07/08/19 07/09/19 07/09/19 22:59 06:59 14:59 Intake Total 999 Balance 999 Intake: Intake, IV Titration 999 Amount Sodium Chloride 0.9% 500 999 ml 500 ml @ 999 mls/hr IV .Q31M STA Rx#:[id number] Other: Weight 79.379 kg PHYSICAL EXAMINATION: Patient is lying in the bed comfortably, no acute distress, awake alert and yasmeen ented.. HEENT: Normocephalic. Neck is supple. Pupils reactive. Nostrils clear. Oral cavity is moist. Ears reveal no drainage. Neck reveals no JVD, carotid bruits, or thyromegaly. CHEST EXAMINATION: Trachea is central. Symmetrical expansion. Lung deutsch clear to auscultation and percussion. CARDIAC: Normal S1, S2 with no gallops. No murmurs ABDOMEN: Soft. Bowel sounds normal. No organomegaly. No abdominal bruits. Extremities: reveal no edema. No clubbing or cyanosis Neurologically awake, alert, oriented x3 with well-coordinated movements. No focal deficits noted Skin: No rash or skin lesions. Psychiatric: Coperative. Nonsuicidal Musculoskeletal: No joint swelling or deformity. Normal range of motion. Results CBC & Chem 7: 07/09/19 09:45 07/09/19 09:45 Labs: Abnormal Lab Results - Last 24 Hours (Table) 07/09/19 07/09/19 Range/Units 09:45 09:45 WBC 2.8 L (3.8-10.6) k/uL Lymphocytes # 0.9 L (1.0-4.8) k/uL Glucose 105 H (74-99) mg/dL Thrombosis Risk Factor Assmnt - DVT/VTE Prophylaxis DVT/VTE Prophylaxis: Pharmacologic Prophylaxis ordered - Choose All That Apply Each Factor Represents 1 point: Age 41-60 years, Varicose veins Other Risk Factors: Yes Each Risk Factor Represents 3 Points: History of DVT/PE Thrombosis Risk Factor Assessment Total Risk Factor Score: 5 Thrombosis Risk Factor Assessment Level: High Risk Assessment and Plan Assessment: Atypical chest pain/tightness likely due to anxiety/panic attacks. Rule out A CS. Palpitations. No arrhythmia noted in the telemetry. EKG showed NSR. History of superficial vein thrombosis. D-dimer is not elevated currently. Unlikely DVT. GERD Osteoarthritis Anxiety/depression Previous history of smoking quit 3 years ago DVT prophylaxis. Plan: Patient will be continued on telemetry monitoring. Serial EKG and troponins. Was started on heparin drip. TSH level was ordered. D-dimer is not elevated unlikely DVT. Continue with Xanax when necessary for anxiety and PPI for GERD. Cardiology was consulted for evaluation. Patient had recent stress test in fall of 2018 was negative. Further recommendations based on the clinical course. Time with Patient: Greater than 30
[2019-07-09] MEDS: PANTOPRAZOLE 40 MG TABLET PO SCH (18:50)
[2019-07-09 19:14] LABS: T4, Free (Free Thyroxine) 2.02 ng/dL (0.78-2.19)
[2019-07-10 06:13] LABS: Mean Platelet Volume 7.4; Platelet Count 153 k/uL (150-450)
[2019-07-10 06:30] LABS: Cholesterol 155 mg/dL (<200); HDL Cholesterol 59 mg/dL (40-60); LDL Cholesterol,Calculated 79 mg/dL (0-99); Triglycerides 87 mg/dL (<150)
[2019-07-10] MEDS ORDERED: PANTOPRAZOLE 40 MG TABLET PO SCH (07:30)
[2019-07-10] MEDS ORDERED: ASPIRIN 81 MG PO SCH (09:00)
[2019-07-10] MEDS ORDERED: ASPIRIN 325 MG TAB PO SCH (09:00)
[2019-07-10] MEDS ORDERED: METOPROLOL SUCCINATE (ER) 25 MG TAB.ER.24H PO SCH (09:15)
--- NOTE | 2019-07-10 11:12 | ECHOF ---
Referral Reason:chest pain MEASUREMENTS -------- HEIGHT: 167.6 cm WEIGHT: 82.1 kg BP: 120/68 IVSd: 1.5 cm (0.6 - 1.1) LVIDd: 3.8 cm (3.9 - 5.3) LVPWd: 1.5 cm (0.6 - 1.1) IVSs: 1.4 cm LVIDs: 1.9 cm LVPWs: 1.7 cm LAESV Index (A-L): 25.08 ml/m Ao Diam: 3.2 cm (2.0 - 3.7) AV Cusp: 2.2 cm (1.5 - 2.6) LA Diam: 2.2 cm (2.7 - 3.8) MV EXCURSION: 14.577 mm (> 18.000) MV EF SLOPE: 59 mm/s (70 - 150) EPSS: 0.9 cm RAP: 5.00 mmHg RVSP: 12.60 mmHg TAPSE: 21.17 mm FINDINGS -------- Sinus rhythm. This was a technically adequate study. The left ventricular size is normal. There is moderate concentric left ventricular hypertrophy. O verall left ventricular systolic function is normal with, an EF between 55 - 60 %. The diastolic fi lling pattern is normal for the age of the patient {E/E'}. The right ventricle is normal in size. The left atrial size is normal. Normal LA size by volume 22+/-6 ml/m2. The right atrial size is normal. The aortic valve is trileaflet and appears structurally normal. The mitral valve is normal. There is trace mitral regurgitation. The tricuspid valve appears structurally normal. Trace tricuspid regurgitation present. Right gaetano tricular systolic pressure is normal at < 35 mmHg. There is no pulmonic regurgitation present. The aortic root size is normal. Normal inferior vena cava with normal inspiratory collapse consistent with estimated right atrial pre ssure of 5 mmHg. There is no pericardial effusion. CONCLUSIONS -------- 1. Sinus rhythm. 2. This was a technically adequate study. 3. The left ventricular size is normal. 4. There is moderate concentric left ventricular hypertrophy. 5. Overall left ventricular systolic function is normal with, an EF between 55 - 60 %. 6. The diastolic filling pattern is normal for the age of the patient {E/E'} 7. The right ventricle is normal in size. 8. The left atrial size is normal. 9. Normal LA size by volume 22+/-6 ml/m2. 10. The right atrial size is normal. 11. The aortic valve is trileaflet and appears structurally normal. 12. The mitral valve is normal. 13. There is trace mitral regurgitation. 14. The tricuspid valve appears structurally normal. 15. Trace tricuspid regurgitation present. 16. Right ventricular systolic pressure is normal at < 35 mmHg. 17. There is no pulmonic regurgitation present. 18. The aortic root size is normal. 19. Normal inferior vena cava with normal inspiratory collapse consistent with estimated right atrial pressure of 5 mmHg. 20. There is no pericardial effusion. HOME VISITOR: Kailyn Auguste RDCS
--- NOTE | 2019-07-10 11:21 | CONS ---
CONSULTATION CHIEF COMPLAINT: Palpitations and chest pain. Mary is a 58-year-old lady with history of anxiety attack, who presented to the hospital having had episodes of palpitation. She describes it as sustained increase in her heart rate associated with some tightness and dizziness. She primarily felt this when she was lying on her left side. She denies exertional chest pain. No history of leg edema, PND or orthopnea. She thought that there was a slight bump on her right leg, but that was noticed in the emergency room. The patient has a history of superficial vein thrombosis and has had anxiety attacks. She was evaluated in our office last the year and apparently underwent a stress test and was told everything was normal. On this admission, the EKG shows sinus rhythm with no significant ST-T wave changes. LABS: Show a hemoglobin of 12.2, creatinine is 0.5. Potassium is 3.6. Three sets of troponins are negative and vega virus is negative. Her lipid profile shows an LDL cholesterol of 79, total cholesterol is 155, HDL is 59. PAST MEDICAL HISTORY: Negative for hypertension, diabetes, dyslipidemia. MEDICATIONS: Include Xanax, omeprazole, Pepcid, aspirin and Tylenol. Patient is allergic to QUINOLONES and SULFA. FAMILY HISTORY: Negative for premature coronary artery disease. SOCIAL HISTORY: Negative for current smoking, EtOH abuse, or drug abuse. REVIEW OF SYSTEMS: HEENT: Unremarkable. CARDIAC: As described above. RESPIRATORY: As described above. GI: Negative. GENITOURINARY: Negative. ALLERGY/IMMUNOLOGY: Negative. SKIN: Negative. MUSCULOSKELETAL: Negative. ENDOCRINE: Negative. DERMATOLOGY: Negative. CONSTITUTIONAL: Negative. ONCOLOGICAL: Negative. COOLING TOWER TECHNICIAN: Negative. Rest of the system review is unremarkable. PHYSICAL EXAM: She is comfortable at rest. Vital signs are stable. There is no jugular venous distention. Carotid upstroke is normal. There is no bruit. Chest is clear to auscultation. Heart exam reveals first and second heart sounds. No gallop. No murmur. No rub. Abdomen is soft, nontender. Exam of extremities did not reveal any edema. Peripheral pulses are felt. LABS: Showed that the platelet count is 178, creatinine is 0.5. Chest x-ray is negative. EKG does not reveal acute ischemic changes and no documented cardiac arrhythmias. TSH is low, C4 is 2. White cell count is 2.8. Cardiac enzymes have been negative. ASSESSMENT: 1. Atypical chest pain. 2. Palpitation. PLAN: So far the patient's workup is negative. The symptoms could be related to paroxysmal episodes of supraventricular tachyarrhythmia, could be due to problems related to thyroid. Given a negative workup last year, I do not see the need for any further workup at this time. We can ambulate her, discharge her home and arrange outpatient followup with me. I will perform an event monitor on her. MADDY / ALF: [id number] /
[2019-07-10 11:37] VITALS: BP 127/77; PULSE 83; RESP 18; TEMP 97.3
--- NOTE | 2019-07-10 12:29 | P.DS ---
Providers Date of admission: 07/09/19 11:45 Expected date of discharge: 07/10/19 Attending physician: Cassie Watt Consults: 07/09/19 11:27 Consult Physician Urgent Consulting Provider: Jacky Back Consult Reason/Comments: chest pain Do you want consulting provider notified?: Yes Primary care physician: Robert Egan Hospital Course: Final diagnosis Atypical chest pain/tightness likely due to anxiety/panic attacks. Ruled out ACS. Palpitations History of superficial vein thrombosis GERD Osteoarthritis Anxiety/depression Previous history of smoking quit 3 years ago DVT prophylaxis Discharge disposition Patient is being discharged in stable condition with guarded prognosis to home. Patient will follow-up with Dr. Egan upon discharge. Patient will also be following up with cardiology Dr. huang in the outpatient setting. Total time taken is 35 minutes. History of present illness This is a 58-year-old female who was recently admitted with some dizziness, lightheadedness, diaphoresis, and heart racing and was being closely monitored. Cardiology following. Patient recently had a stress test in 2019 that was negative and patient states that she has been having episodes of panic attacks with all the covid pandemic she has been seeing an social media and TV. During this hospitalization patient underwent 2-D echo showing overall left ventricular systolic function is normal with an EF between 55 and 60%. Patient was seen and evaluated by Dr. Huang cardiology and will be following with him in the outpatient setting. Patient did have an event monitor placed prior to being discharged. Patient was initiated on a low-dose metoprolol and will continue in the outpatient setting. Patient's TSH was low at 0.015 with a free T4 of 2.0 to and a free T3 slightly elevated at 6.0. Patient will need to follow-up with cardiology as well as her primary care provider. Patient does have an appointment scheduled with cardiology. Currently no reports of chest pain, shortness of breath, or palpitations. Patient is afebrile. No reports of nausea or vomiting and patient is tolerating diet. On exam vital signs are stable. Temp is 97.3F, pulse is 83, respirations are 18, blood pressures 127/77, oxygen saturation is 97% on room air. Cardio S1, S2 are present. Respiratory system is clear to auscultation. Abdomen is soft and nontender. Nervous system shows no focal deficits. Please refer to medication reconciliation sheet for a list of medications. Patient Condition at Discharge: Stable Plan - Discharge Summary Discharge Rx Participant: Yes New Discharge Prescriptions: New Aspirin 325 mg PO DAILY 30 Days #30 tab Metoprolol Succinate (ER) [Toprol XL] 25 mg PO DAILY 30 Days #30 tab.er.24h Continue Acetaminophen [Tylenol] 1,000 mg PO Q4-6H PRN PRN Reason: Pain Famotidine [Pepcid] 20 mg PO HS Omeprazole 20 mg PO DAILY Chlorpheniramine/Dextromethorp [Coricidin Hbp Cough-Cold Tab] 1 tab PO Q4H PRN PRN Reason: Cold Symptoms ALPRAZolam [Xanax] 0.125 mg PO TID PRN #12 tab PRN Reason: Anxiety Discontinued Aspirin EC [Ecotrin Low Dose] 81 mg PO DAILY Discharge Medication List Acetaminophen [Tylenol] 1,000 mg PO Q4-6H PRN 11/10/17 [History] Famotidine [Pepcid] 20 mg PO HS 02/27/19 [History] Chlorpheniramine/Dextromethorp [Coricidin Hbp Cough-Cold Tab] 1 tab PO Q4H PRN 07/09/19 [History] Omeprazole 20 mg PO DAILY 07/09/19 [History] ALPRAZolam [Xanax] 0.125 mg PO TID PRN #12 tab 07/10/19 [Rx] Aspirin 325 mg PO DAILY 30 Days #30 tab 07/10/19 [Rx] Metoprolol Succinate (ER) [Toprol XL] 25 mg PO DAILY 30 Days #30 tab.er.24h 07/10/19 [Rx] Follow up Appointment(s)/Referral(s): Robert Egan MD [Primary Care Provider] - 1-2 days (Please call your primary to make follow up appointment - you can do telehealth or an in office appointment. ) Gil Huang MD [STAFF PHYSICIAN] - 07/20/19 2:30 pm (In office appointment. ) Patient Instructions/Handouts: Heart Palpitations (DC), Heart Healthy Diet (DC), Hyperthyroidism (DC) Activity/Diet/Wound Care/Special Instructions: Activity Limited until follow-up Follow-up with primary care provider Continue current diet Follow-up with cardiology as discussed and scheduled Discharge Disposition: HOME SELF-CARE
[2019-07-10] MEDS: PANTOPRAZOLE 40 MG TABLET PO SCH (12:54)
== END 2019-07-10 13:50 | disposition home or self-care (01) ==
LOC: EC 09:28 → 3SCARD 11:45
PROVIDERS: ADMIT Internal Medicine; ATTEND Internal Medicine
DX: R07.89 Other chest pain (principal); R00.2 Palpitations; R42 Dizziness and giddiness; R61 Generalized hyperhidrosis; K21.9 Gastro-esophageal reflux disease without esophagitis; M19.90 Unspecified osteoarthritis, unspecified site; K76.0 Fatty (change of) liver, not elsewhere classified; K13.21 Leukoplakia of oral mucosa, including tongue; F41.9 Anxiety disorder, unspecified; F32.9 Major depressive disorder, single episode, unspecified; Z86.718 Personal history of other venous thrombosis and embolism; Z86.19 Personal history of other infectious and parasitic diseases; Z80.8 Family history of malignant neoplasm of other organs or systems; Z80.1 Family history of malignant neoplasm of trachea, bronchus and lung; Z83.3 Family history of diabetes mellitus; Z82.49 Family history of ischemic heart disease and other diseases of the circulatory system; Z83.438 Family history of other disorder of lipoprotein metabolism and other lipidemia; Z87.891 Personal history of nicotine dependence; Z90.710 Acquired absence of both cervix and uterus; Z98.51 Tubal ligation status; Z98.890 Other specified postprocedural states; Z79.82 Long term (current) use of aspirin; Z79.899 Other long term (current) drug therapy; Z88.1 Allergy status to other antibiotic agents; Z88.2 Allergy status to sulfonamides
CPT/HCPCS: 96366; 93005 ×2; 96376; 96365; 96375; 99285; 36415; 93306; 93270; 85379; 84439; 84481; 80061; 80053; 84443; 83735; 84484; 85025; 85049; 85610; 85730 ×2; 87635; 71046; G0378 ×2; J2060; J1644 ×2

== ENCOUNTER 2019-08-22 15:16 | Emergency (ER) | payer OTHER ==
[2019-08-22 15:31] VITALS: BP 99/64; PULSE 73; RESP 18; TEMP 98.2
--- NOTE | 2019-08-22 15:50 | ED ---
General Adult HPI - General Chief complaint: Extremity Problem,Nontraumatic Stated complaint: Possible Blood Clot Time Seen by Provider: 08/22/19 15:36 Source: patient, RN notes reviewed, old records reviewed Mode of arrival: ambulatory Limitations: no limitations - History of Present Illness Initial comments: 59-year-old lady presenting with pain and swelling on the medial aspect of the left thigh. Some inflamed veins with history of thrombophlebitis. She was sent in by her primary care for evaluation of DVT. Patient states her pain is been there for approximately one day. She denies chest pain or dyspnea. Denies any other constitutional symptoms. No history of DVT. - Related Data Home Medications Medication Instructions Recorded Confirmed Acetaminophen [Tylenol] 1,000 mg PO Q4-6H PRN 11/10/17 07/09/19 Famotidine [Pepcid] 20 mg PO HS 02/27/19 07/09/19 Chlorpheniramine/Dextromethorp 1 tab PO Q4H PRN 07/09/19 07/09/19 [Coricidin Hbp Cough-Cold Tab] Omeprazole 20 mg PO DAILY 07/09/19 07/09/19 Previous Rx's Medication Instructions Recorded ALPRAZolam [Xanax] 0.125 mg PO TID PRN #12 tab 07/10/19 Aspirin 325 mg PO DAILY 30 Days #30 tab 07/10/19 Metoprolol Succinate (ER) [Toprol 25 mg PO DAILY 30 Days #30 07/10/19 XL] tab.er.24h Allergies Allergy/AdvReac Type Severity Reaction Status Date / Time Quinolones Allergy Severe Unknown Verified 08/22/19 15:31 Sulfa (Sulfonamide Allergy Rash/Hives/Vision Verified 08/22/19 15:31 Antibiotics) Disturbance Review of Systems ROS Statement: Those systems with pertinent positive or pertinent negative responses have been documented in the HPI. ROS Other: All systems not noted in ROS Statement are negative. 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 Past Anesthesia/Blood Transfusion Reactions: Motion Sickness Past Psychological History: Anxiety, Depression Smoking Status: Former smoker Past Alcohol Use History: Rare Past Drug Use History: None Reported - Past Family History Mother Family Medical History: Cancer Additional Family Medical History / Comment(s): basal cell, lung cancer with right upper lobectomy, double mastectomy from breast cancer followed by radiation. Father Family Medical History: AFIB, Cancer Additional Family Medical History / Comment(s): basal cell, enlarged heart from mesothelioma General Exam Limitations: no limitations General appearance: alert, in no apparent distress Head exam: Present: atraumatic, normocephalic Eye exam: Present: normal appearance, PERRL ENT exam: Present: normal exam Neck exam: Present: normal inspection. Absent: tenderness, meningismus Respiratory exam: Present: normal lung sounds bilaterally. Absent: respiratory distress Cardiovascular Exam: Present: regular rate. Absent: normal rhythm GI/Abdominal exam: Present: soft. Absent: distended, tenderness, guarding Extremities exam: Present: normal capillary refill, other (Distal pulses intact, there is varicosity and superficial phlebitis in the left medial thigh.). Absent: calf tenderness Neurological exam: Present: alert, oriented X3 Psychiatric exam: Present: normal affect, normal mood Skin exam: Present: warm, dry, intact. Absent: cyanosis, diaphoretic Course Vital Signs 08/22/19 15:27 Temperature 98.2 F Pulse Rate 73 Respiratory 18 Rate Blood Pressure 99/64 O2 Sat by Pulse 98 Oximetry Medical Decision Making - Medical Decision Making 59-year-old female sent in for evaluation of left lower extremity superficial thrombophlebitis, concern for recurrent DVT. Ultrasound obtained, negative for DVT. Patient will follow-up with her primary care physician regarding superficial thrombophlebitis, no associated infection or cellulitis. Disposition Clinical Impression: Superficial thrombophlebitis Disposition: HOME SELF-CARE Condition: Good Instructions (If sedation given, give patient instructions): Superficial Thrombophlebitis (ED) Is patient prescribed a controlled substance at d/c from ED?: No Referrals: Robert Egan MD [Primary Care Provider] - 1-2 days Time of Disposition: 16:48
--- NOTE | 2019-08-22 16:31 | US ---
EXAMINATION TYPE: US venous doppler duplex LE LT DATE OF EXAM: 08/22/2019 3:49 PM COMPARISON: CLINICAL HISTORY: dvt. Patient has visible varicose vein. No redness. No swelling. On baby aspirin. SIDE PERFORMED: Left TECHNIQUE: The lower extremity deep venous system is examined utilizing real time linear array sonog yuli with graded compression, doppler sonography and color-flow sonography. VESSELS IMAGED: External Iliac Vein (EIV) Common Femoral Vein Deep Femoral Vein Greater Saphenous Vein * Femoral Vein Popliteal Vein Small Saphenous Vein * Proximal Calf Veins (* superficial vessels) Left Leg: Negative for DVT IMPRESSION: No evidence for DVT at this time.
== END 2019-08-22 16:52 | disposition home or self-care (01) ==
LOC: EC 15:16
DX: I80.292 Phlebitis and thrombophlebitis of other deep vessels of left lower extremity (principal); K21.9 Gastro-esophageal reflux disease without esophagitis; Z79.899 Other long term (current) drug therapy; Z87.891 Personal history of nicotine dependence; Z88.2 Allergy status to sulfonamides; Z88.1 Allergy status to other antibiotic agents
CPT/HCPCS: 99284

== ENCOUNTER → 2020-01-03 | Outpatient (CLI) | payer OTHER ==
--- NOTE | 2020-01-04 12:42 | MM ---
Reason for exam: screening (asymptomatic). Last mammogram was performed 1 year and 2 months ago. History: Patient is postmenopausal and has history of other cancer at age 49. Family history of breast cancer in mother at age 75, breast cancer in maternal aunt at age 55, and breast cancer in maternal aunt at age 50. Physical Findings: A clinical breast exam by your physician is recommended on an annual basis and results should be correlated with mammographic findings. MG Screening Mammo w CAD Bilateral CC and MLO view(s) were taken. Prior study comparison: November 03, 2018, bilateral MG screening mammo w CAD. October 12, 2017, bilateral MG screening mammo w CAD. There are scattered fibroglandular densities. No significant changes when compared with prior studies. ASSESSMENT: Negative, BI-RAD 1 RECOMMENDATION: Routine screening mammogram of both breasts in 1 year.
== END | disposition home or self-care (01) ==
LOC: RADMAMWWP 11:01
PROVIDERS: ATTEND Obstetrics & Gynecology
DX: Z12.31 Encounter for screening mammogram for malignant neoplasm of breast (principal); Z80.3 Family history of malignant neoplasm of breast
CPT/HCPCS: 77067

== ENCOUNTER 2020-01-09 21:18 | Emergency (ER) | payer OTHER ==
[2020-01-09 21:22] VITALS: RESP 18
[2020-01-09] MEDS ORDERED: diphenhydrAMINE 50 MG/ML 1 ML VIAL IVP STA (21:51)
[2020-01-09] MEDS ORDERED: methylPREDNISolone SOD SUCCI 125 MG/2 ML VIAL IV STA (21:51)
[2020-01-09] MEDS ORDERED: FAMOTIDINE 20 MG/2 ML VIAL IV STA (21:51)
[2020-01-09] MEDS ORDERED: MORPHINE SULFATE 2 MG/ML SYRINGE IVP STA ×2 (21:52→23:29)
[2020-01-09] MEDS ORDERED: CLINDAMYCIN 600 MG in DEXTROSE 5% IN WATER 50 ML IVPB ONE ×2 (22:00)
[2020-01-09 22:18] LABS: Basophils % (A) 0 %; Eosinophils # (A) 0.2 k/uL (0-0.7); Eosinophils % (A) 4 %; HCT 36.8 % (34.0-46.0); HGB 12.5 gm/dL (11.4-16.0); Lymphocytes # (A) 1.1 k/uL (1.0-4.8); Lymphocytes % (A) 24 %; MCH 29.3 pg (25.0-35.0); MCV 86.1 fL (80.0-100.0); Mean Platelet Volume 8.1; Monocytes # (A) 0.2 k/uL (0-1.0); Monocytes % (A) 5 %; Neutrophils % (A) 66 %; Platelet Count 153 k/uL (150-450); RBC 4.27 m/uL (3.80-5.40); RDW 13.2 % (11.5-15.5); WBC 4.5 k/uL (3.8-10.6)
[2020-01-09 22:27] LABS: ALT 23 U/L (4-34); AST 27 U/L (14-36); African American GFR (CKD) >90 (>60 ml/min/1.73 sqM); Albumin 3.8 g/dL (3.5-5.0); Alkaline Phosphatase 72 U/L (38-126); Anion Gap 6 mmol/L; Blood Urea Nitrogen 11 mg/dL (7-17); Calcium 9.2 mg/dL (8.4-10.2); Carbon Dioxide 24 mmol/L (22-30); Chloride 109 mmol/L (98-107); Glucose 107 mg/dL (74-99); Non-African American GFR(CKD) >90 (>60 ml/min/1.73 sqM); Potassium 3.9 mmol/L (3.5-5.1); Sodium 139 mmol/L (137-145); Total Bilirubin 0.3 mg/dL (0.2-1.3); Total Protein 6.1 g/dL (6.3-8.2)
--- NOTE | 2020-01-09 22:49 | XR ---
EXAMINATION TYPE: XR chest 2V DATE OF EXAM: 01/09/2020 COMPARISON: 07/09/2019 HISTORY: Face swelling Heart and mediastinum are normal. Lungs are clear. Diaphragm is normal. Bony thorax appears normal. IMPRESSION: Normal chest. No change.
--- NOTE | 2020-01-09 22:56 | CT ---
EXAMINATION TYPE: CT soft tissue neck w con DATE OF EXAM: 01/09/2020 COMPARISON: 11/10/2017 HISTORY: Right sided neck and facial swelling post dental procedure today. CT DLP: 244.6 mGycm Automated exposure control for dose reduction was used. CONTRAST: Performed with IV Contrast, patient injected with 100ml mL of Isovue 300. Images were obtained from the aortic arch to the top of the orbits with IV contrast. There is extensive soft tissue air on the right side of the face including the maxilla and mandible a nd extending into the neck in the anterior triangle along the sternocleidomastoid mastoid muscle. The maxilla appears intact. There is fairly normal aeration of the paranasal sinuses. The visualized orbits are intact. There is no sign of retro-orbital mass. The globes are partly visualized and appea r symmetric. The mandibular ring is intact. I see no bony destructive process. There is normal aerati on of the mastoid sinuses. The temporal bones are intact. The external auditory canals appear normal. There is no evidence of a pharyngeal mass. Epiglottis appears normal. The tongue appears normal. Subg lottic trachea appears normal.The tonsils and adenoids appear within normal limits. The submandibular salivary glands are symmetric. The parotid glands are symmetric. There is no sign of pneumomediastinum. There is normal contrast opacification of the carotid arteries and jugular veins. There is no evidence of thrombosis. There is no evidence of hematoma. IMPRESSION: Extensive soft tissue air on the right side of the neck extending down to the sternoclavicular joint. No evidence of a hematoma or abscess.
[2020-01-09] MEDS ORDERED: AMOXIC-POT CLAV 875MG STARTER PACK 2 TAB BTL PO STA (23:12)
--- NOTE | 2020-01-09 23:19 | ED ---
ENT HPI <KaliashlyCesar - Last Filed: 01/09/20 23:26> - General Source: patient Mode of arrival: ambulatory Limitations: no limitations <Luh Henderson - Last Filed: 01/10/20 06:01> - General Chief complaint: Dental/Oral Stated complaint: Facial Swelling, post op Time Seen by Provider: 01/09/20 21:31 - History of Present Illness Initial comments: 59-year-old feel presents today for chief complaint of right-sided face and neck swelling and crepitus. Patient states that she has a crunching sound to the right side of her face and neck after dental procedure she states she cannot identify the exact moment when the dentist was drilling and using suction. She states she had sudden onset of pain and can feel the air within her face. She states this was at 10 AM. Patient states that she continues to have the discomfort and the crunching sensation. Patient denies a difficulty swallowing breathing she denies any wheezing or stridor. Patient denies any drooling, tripoding, fevers, redness, swelling below the tongue. Patient appears nontoxic in no acute distress on arrival. Denies crepitus to chest or SOB. (Luh Henderson) - Related Data Home Medications Medication Instructions Recorded Confirmed Acetaminophen [Tylenol] 1,000 mg PO Q4-6H PRN 11/10/17 01/09/20 Aspirin EC [Ecotrin Low Dose] 81 mg PO DAILY 01/09/20 01/09/20 Clobetasol Propionate [Temovate 1 applic TOPICAL DAILY 01/09/20 01/09/20 0.05% Cream] Hydrocortisone Oint 1 applic TOPICAL DAILY PRN 01/09/20 01/09/20 [Hydrocortisone 2.5% Oint] Methimazole [Tapazole] 5 mg PO HS 01/09/20 01/09/20 Omeprazole 20 mg PO BID 01/09/20 01/09/20 Sucralfate [Carafate] 1 gm PO BID 01/09/20 01/09/20 Previous Rx's Medication Instructions Recorded Metoprolol Succinate (ER) [Toprol 25 mg PO DAILY 30 Days #30 07/10/19 XL] tab.er.24h Amoxicillin/Potassium Clav 1 tab PO Q12HR 7 Days #14 tab 11/10/20 [Augmentin 875-125 Tablet] Allergies Allergy/AdvReac Type Severity Reaction Status Date / Time Quinolones Allergy Severe Unknown Verified 01/09/20 23:21 Sulfa (Sulfonamide Allergy Rash/Hives/Vision Verified 01/09/20 23:21 Antibiotics) Disturbance Review of Systems ROS Other: All systems not noted in ROS Statement are negative. <Cesar Hopson - Last Filed: 01/09/20 23:26> ROS Other: All systems not noted in ROS Statement are negative. <Luh Henderson - Last Filed: 01/10/20 06:01> ROS Statement: Those systems with pertinent positive or pertinent negative responses have been documented in the HPI. 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 Past Anesthesia/Blood Transfusion Reactions: Motion Sickness Past Psychological History: Anxiety, Depression Smoking Status: Former smoker Past Alcohol Use History: Rare Past Drug Use History: None Reported - Past Family History Mother Family Medical History: Cancer Additional Family Medical History / Comment(s): basal cell, lung cancer with right upper lobectomy, double mastectomy from breast cancer followed by ra hernandez. Father Family Medical History: AFIB, Cancer Additional Family Medical History / Comment(s): basal cell, enlarged heart from mesothelioma <Luh Henderson - Last Filed: 01/10/20 06:01> General Exam Limitations: no limitations <Luh Henderson - Last Filed: 01/10/20 06:01> - General Exam Comments Initial Comments: General: The patient is awake and alert, in no distress, and does not appear acutely ill. Eye: Pupils are equal, round and reactive to light, extra-ocular movements are intact. No nystagmus. There is normal conjunctiva bilaterally. No signs of icterus. Ears, nose, mouth and throat: There are moist mucous membranes and no oral le sions. No tripoding no drooling no stridor tolerating oral secretions no swelling below the tongue or obvious swelling below the angle of the mandible patient does have some swelling of the right lower jaw Neck: The neck is supple, there is no tenderness or JVD. Crepitus to right upper neck and right side of face/scalp-tender, no redness. Cardiovascular: There is a regular rate and rhythm. No murmur, rub or gallop is appreciated. Respiratory: Lungs are clear to auscultation, respirations are non-labored, breath sounds are equal. No wheezes, stridor, rales, or rhonchi. Gastrointestinal: Soft, non-distended, non-tender abdomen without masses or organomegaly noted. There is no rebound or guarding present. Musculoskeletal: Normal ROM, no tenderness. Strength 5/5. Sensation intact. radial pulses equal bilaterally 2+. Neurological: A&O x 3. CN II-XII intact, There are no obvious motor or sensory deficits. Coordination appears grossly intact. Speech is normal. Skin: Skin is warm and dry and no rashes or lesions are noted. Psychiatric: Cooperative, appropriate mood & affect, normal judgment. (Luh Henderson) Course Vital Signs 01/09/20 01/10/20: 00:28 Temperature 97.9 F 98.4 F Pulse Rate 79 60 Respiratory 18 18 Rate Blood Pressure 123/85 128/69 O2 Sat by Pulse 98 98 Oximetry Medical Decision Making - Lab Data Result diagrams: 01/09/20 21:53 01/09/20 21:53 <Cesar Hopson - Last Filed: 01/09/20 23:26> - Lab Data Result diagrams: 01/09/20 21:53 01/09/20 21:53 <Luh Henderson - Last Filed: 01/10/20 06:01> - Medical Decision Making I saw this patient in conjunction with the physician assistant pressman. I performed independent history and physical exam. Agree with case management. (Cesar Hopson) 59yo presenting for facial swelling/crepitus after preparation for dental crown (no active infection at that time per patient). Patient evaluated by attending, Dr Hopson. CT revealed the suspected free air no airway compromise or abscess. Patient is afebrile, nontoxic in appearance, no clinical findings suggestive of airway compromise. Oral surgery was consulted--Dr. Ashlee Hopson spoke with physician he recommended discharge with augmentin and outpatient f/u with dentist. Patient agreeable to care plan and discharge. Strict return parameters discussed at length with patient who was agreeable to care plan. (Luh Henderson) - Lab Data Lab Results 01/09/20 01/09/20 Range/Units 21:53 21:53 WBC 4.5 (3.8-10.6) k/uL RBC 4.27 (3.80-5.40) m/uL Hgb 12.5 (11.4-16.0) gm/dL Hct 36.8 (34.0-46.0) % MCV 86.1 (80.0-100.0) fL MCH 29.3 (25.0-35.0) pg MCHC 34.0 (31.0-37.0) g/dL RDW 13.2 (11.5-15.5) % Plt Count 153 (150-450) k/uL MPV 8.1 Neutrophils % 66 % Lymphocytes % 24 % Monocytes % 5 % Eosinophils % 4 % Basophils % 0 % Neutrophils # 3.0 (1.3-7.7) k/uL Lymphocytes # 1.1 (1.0-4.8) k/uL Monocytes # 0.2 (0-1.0) k/uL Eosinophils # 0.2 (0-0.7) k/uL Basophils # 0.0 (0-0.2) k/uL Sodium 139 (137-145) mmol/L Potassium 3.9 (3.5-5.1) mmol/L Chloride 109 H (98-107) mmol/L Carbon Dioxide 24 (22-30) mmol/L Anion Gap 6 mmol/L BUN 11 (7-17) mg/dL Creatinine 0.56 (0.52-1.04) mg/dL Est GFR (CKD-EPI)AfAm >90 (>60 ml/min/1.73 sqM) Est GFR (CKD-EPI)NonAf >90 (>60 ml/min/1.73 sqM) Glucose 107 H (74-99) mg/dL Calcium 9.2 (8.4-10.2) mg/dL Total Bilirubin 0.3 (0.2-1.3) mg/dL AST 27 (14-36) U/L ALT 23 (4-34) U/L Alkaline Phosphatase 72 (38-126) U/L Total Protein 6.1 L (6.3-8.2) g/dL Albumin 3.8 (3.5-5.0) g/dL Disposition <Cesar Hopson - Last Filed: 01/09/20 23:26> Is patient prescribed a controlled substance at d/c from ED?: No Time of Disposition: 23:18 <Luh Henderson - Last Filed: 01/10/20 06:01> Clinical Impression: Facial swelling Narrative: air soft tissue neck (Luh Henderson) Disposition: HOME SELF-CARE Condition: Good Instructions (If sedation given, give patient instructions): Toothache (ED) Additional Instructions: Please use medication as discussed. Please follow-up with dentist tomorrow, take antibiotics and monitoring swelling, crepitus, pain and watch for fevers. Please return to emergency room if the symptoms increase or worsen or for any other concerns. Prescriptions: Amoxicillin/Potassium Clav [Augmentin 875-125 Tablet] 1 tab PO Q12HR 7 Days #14 tab Referrals: Robert Egan MD [Primary Care Provider] - 1-2 days
[2020-01-10 00:30] VITALS: BP 128/69; PULSE 60; TEMP 98.4
== END 2020-01-10 00:28 | disposition home or self-care (01) ==
LOC: EC 21:18
DX: R22.0 Localized swelling, mass and lump, head (principal); K21.9 Gastro-esophageal reflux disease without esophagitis; M19.90 Unspecified osteoarthritis, unspecified site; E07.9 Disorder of thyroid, unspecified; Z87.891 Personal history of nicotine dependence; Z90.710 Acquired absence of both cervix and uterus; Z90.89 Acquired absence of other organs; Z79.899 Other long term (current) drug therapy; Z88.2 Allergy status to sulfonamides; Z88.8 Allergy status to other drugs, medicaments and biological substances; Z86.69 Personal history of other diseases of the nervous system and sense organs
CPT/HCPCS: 36415; 80053; 85025; 87040; 71046; 70491; 99284; 96365; 96375 ×3; 96376; J2930; J2270; Q9967

== ENCOUNTER 2020-04-22 07:35 | Observation (INO) | payer OTHER ==
[2020-04-22] MEDS ORDERED: NITROGLYCERIN SL TABS 0.4 MG TAB SUBLINGUAL STA (07:49)
[2020-04-22] MEDS ORDERED: ASPIRIN 81 MG PO STA (07:49)
--- NOTE | 2020-04-22 07:52 | ED ---
Chest Pain HPI - General Chief Complaint: Chest Pain Stated Complaint: Chest Pain Time Seen by Provider: 04/22/20 07:43 Source: patient, RN notes reviewed Mode of arrival: wheelchair Limitations: no limitations - History of Present Illness Initial Comments: Is a 59-year-old female with no prior history of heart disease with a history of hypertension and thyroid disease who is being weaned off her beta yecenia at this time after receiving radioactive iodine for thyroid who is out pushing snow this morning she started developing retrosternal burning type chest pain or radiated to her left wrist. Pain was 8/10 severity associated with nausea no sweats breath he had the palpitations she mentioned. She took a baby aspirin and her metoprolol. States the pain currently for/10 no other symptoms or complaints at this time MD Complaint: chest pain - Related Data Home Medications Medication Instructions Recorded Confirmed Aspirin EC [Ecotrin Low Dose] 81 mg PO DAILY 01/09/20 04/22/20 Levothyroxine Sodium 100 mcg PO DAILY 04/22/20 04/22/20 Metoprolol Succinate (ER) [Toprol 25 mg PO Q48H 04/22/20 04/22/20 XL] Omeprazole 40 mg PO AC-SUPPER 04/22/20 04/22/20 Allergies Allergy/AdvReac Type Severity Reaction Status Date / Time Quinolones Allergy Severe Rash/Hives Verified 04/22/20 08:42 Sulfa (Sulfonamide Allergy Rash/Hives/Vision Verified 04/22/20 08:42 Antibiotics) Disturbance Review of Systems ROS Statement: Those systems with pertinent positive or pertinent negative responses have been documented in the HPI. ROS Other: All systems not noted in ROS Statement are negative. EKG Findings - EKG Results: EKG: interpreted by MASTER, sinus rhythm (Sinus rhythm of 60. Interval 160 QRS duration 96 DT says QTC/[address]-T wave changes there is some evidence of early repolarization. 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 Past Anesthesia/Blood Transfusion Reactions: Motion Sickness Past Psychological History: Anxiety, Depression Smoking Status: Former smoker Past Alcohol Use History: Rare Past Drug Use History: None Reported - Past Family History Mother Family Medical History: Cancer Additional Family Medical History / Comment(s): basal cell, lung cancer with right upper lobectomy, double mastectomy from breast cancer followed by radiation. Father Family Medical History: AFIB, Cancer Additional Family Medical History / Comment(s): basal cell, enlarged heart from mesothelioma General Exam - General Exam Comments Initial Comments: This is a well-developed well-nourished awake alert oriented 3 female Limitations: no limitations General appearance: alert, anxious Head exam: Present: atraumatic, normocephalic, normal inspection Eye exam: Present: normal appearance, PERRL, EOMI. Absent: scleral icterus, conjunctival injection, periorbital swelling ENT exam: Present: normal exam, mucous membranes moist Neck exam: Present: normal inspection. Absent: tenderness, meningismus, lymphadenopathy Respiratory exam: Present: normal lung sounds bilaterally, chest wall tenderness (Some tenderness palpation of the anterior chest wall costal sternal margins no step-off no crepitation.). Absent: respiratory distress, wheezes, rales, rhonchi, stridor Cardiovascular Exam: Present: regular rate, normal rhythm, normal heart sounds. Absent: systolic murmur, diastolic murmur, rubs, gallop, clicks GI/Abdominal exam: Present: soft, normal bowel sounds. Absent: distended, tenderness, guarding, rebound, rigid Extremities exam: Present: normal inspection, full ROM, normal capillary refill. Absent: tenderness, pedal edema, joint swelling, calf tenderness Back exam: Present: normal inspection Neurological exam: Present: alert, oriented X3, CN II-XII intact Psychiatric exam: Present: normal affect, normal mood Skin exam: Present: warm, dry, intact, normal color. Absent: rash Course Vital Signs 04/22/20 04/22/20 07:37 08:39 Temperature 97.8 F Pulse Rate 70 71 Respiratory 18 18 Rate Blood Pressure 115/72 118/79 O2 Sat by Pulse 99 100 Oximetry Chest Pain MDM - MDM X-rays reviewed no acute findings. I did discuss findings with the patient there is reproducibility some of the pain however the context is suspicious for ACS patient will be admitted I did discuss case with Dr. Odell. Critical Care Time Critical Care Time: Yes Total Critical Care Time: 31 Disposition Clinical Impression: Acute coronary syndrome, Chest wall syndrome Disposition: ADMITTED IP TO THIS HOSP Condition: Fair Referrals: Robert Egan MD [Primary Care Provider] - 1-2 days
[2020-04-22 08:03] LABS: Basophils % (A) 0 %; Eosinophils # (A) 0.1 k/uL (0-0.7); Eosinophils % (A) 5 %; HCT 39.4 % (34.0-46.0); HGB 12.9 gm/dL (11.4-16.0); Lymphocytes # (A) 0.9 k/uL (1.0-4.8); Lymphocytes % (A) 28 %; MCH 29.1 pg (25.0-35.0); MCHC 32.9 g/dL (31.0-37.0); MCV 88.6 fL (80.0-100.0); Mean Platelet Volume 7.4; Monocytes # (A) 0.2 k/uL (0-1.0); Monocytes % (A) 5 %; Neutrophils # (A) 1.8 k/uL (1.3-7.7); Neutrophils % (A) 60 %; Platelet Count 187 k/uL (150-450); RBC 4.44 m/uL (3.80-5.40); RDW 14.8 % (11.5-15.5)
[2020-04-22 08:14] LABS: ALT 16 U/L (4-34); AST 25 U/L (14-36); African American GFR (CKD) >90 (>60 ml/min/1.73 sqM); Albumin 4.6 g/dL (3.5-5.0); Alkaline Phosphatase 68 U/L (38-126); Anion Gap 13 mmol/L; Blood Urea Nitrogen 11 mg/dL (7-17); Calcium 9.6 mg/dL (8.4-10.2); Carbon Dioxide 23 mmol/L (22-30); Chloride 105 mmol/L (98-107); Creatine Kinase 65 U/L (30-135); Glucose 105 mg/dL (74-99); Non-African American GFR(CKD) >90 (>60 ml/min/1.73 sqM); Potassium 4.1 mmol/L (3.5-5.1); Sodium 141 mmol/L (137-145); Total Bilirubin 0.4 mg/dL (0.2-1.3); Total Protein 7.4 g/dL (6.3-8.2)
--- NOTE | 2020-04-22 08:21 | XR ---
EXAMINATION TYPE: XR chest 2V DATE OF EXAM: 04/22/2020 COMPARISON: 01/09/2020 HISTORY: 59-year-old female with chest pain TECHNIQUE: PA and lateral views FINDINGS: The cardiomediastinal silhouette, aorta, and pulmonary vasculature are within normal limits. Mild int erstitial prominence has a chronic appearance. Otherwise, lungs and pleural spaces are clear. IMPRESSION: Chronic changes without acute cardiopulmonary process.
[2020-04-22 08:31] LABS: D-Dimer 0.51 mg/L FEU (<0.60); INR 0.9 (<1.2); Partial Thromboplastin Time 22.8 sec (22.0-30.0); Prothrombin Time 9.5 sec (9.0-12.0)
[2020-04-22] MEDS ORDERED: NITROGLYCERIN SL TABS 0.4 MG TAB SUBLINGUAL PRN (10:20)
[2020-04-22] MEDS ORDERED: HEPARIN SODIUM,PORCINE 5,000 UNIT/ML 1 ML VIAL IV ONE (10:20)
[2020-04-22] MEDS ORDERED: NITROGLYCERIN OINT 1 INCH/GM PACKET TOPICAL STA (10:25)
[2020-04-22] MEDS ORDERED: SODIUM CHLORIDE 0.9% 1,000 ML IV SCH (10:30)
[2020-04-22] MEDS ORDERED: HEPARIN SOD,PORK IN 0.45% NACL 25,000 UNIT in 0.45% NACL 1 250ML.BAG IV SCH (10:30)
[2020-04-22] MEDS ORDERED: NITROGLYCERIN OINT 1 INCH/GM PACKET TOPICAL SCH (12:00)
--- NOTE | 2020-04-22 12:52 | CONS ---
CONSULTATION CHIEF COMPLAINT: Palpitations and chest pain. HISTORY OF PRESENT ILLNESS: Mary is a 59-year-old lady who is admitted to hospital with sudden onset of sustained palpitations. She states that she was woke up this morning and was getting ready to go to work, went out to shovel snow when she suddenly developed palpitations. They were sustained, moderate intensity. Also had some associated chest pain. Following this, she came to the emergency room. She had an EKG that revealed sinus rhythm without significant ST-T wave changes. She had a troponin that is negative. Her white cell count is low at 3. She has had history of paroxysmal SVT and hyperthyroidism and is currently on Synthroid. She also takes metoprolol that is currently being gradually weaned and stopped. At the time of my evaluation in the emergency room, she appears comfortable at rest, hemodynamically stable and free of symptoms. PAST MEDICAL HISTORY: Significant for hypothyroidism, GERD. MEDICATIONS: Include aspirin, Toprol-XL, levothyroxine and omeprazole. ALLERGIES: TO QUINOLONES AND SULFA. FAMILY HISTORY: Negative for premature coronary artery disease. SOCIAL HISTORY: Negative for current smoking, EtOH abuse, or drug abuse. REVIEW OF SYSTEMS: HEENT is unremarkable. Cardiac as described above. Respiratory negative. GI negative. Genitourinary negative. Allergy/Immunology negative. Skin negative. Musculoskeletal negative. Endocrine negative. Derm negative. Constitutional negative. Oncological negative. RESIDENCE SUPERVISOR negative. EXAM: Comfortable at rest. Heart rate is 70 beats, blood pressure is 120/80, respiratory rate is 18, O2 saturation is 98% on room air. There is no jugular venous distention. Carotid upstroke is normal. There is no bruit. Chest exam reveals good air entry bilaterally. Heart exam reveals first and second heart sounds. No gallop. No murmur. No rub. Abdomen is soft, nontender. Exam of extremities did not reveal any edema. Peripheral pulses are felt. LABS: Show a hemoglobin of 12.9, platelet count is 187. Potassium is 4.1. Creatinine is 0.6. Troponin is negative. EKG does not reveal ischemic changes. I reviewed her old records. She had an echocardiogram in April of 2018 that revealed normal LV systolic function, mild mitral regurgitation. She had a stress Cardiolite study in April of 2018 that showed normal myocardial perfusion function. She had a Holter that showed normal sinus rhythm. She had an event monitor that shows runs of SVT. ASSESSMENT: 1. Precordial chest pain. 2. Palpitations could be due to paroxysmal supraventricular tachycardia. PLAN: I am going to continue the patient on beta blockers. I will obtain serial troponins to rule out myocardial infarction and once myocardial infarction is ruled out, consider a stress test on her. MMSTEVEN / CHERIN: [id number] /
--- NOTE | 2020-04-22 13:00 | ECHOF ---
Referral Reason:LV function MEASUREMENTS -------- HEIGHT: 167.6 cm WEIGHT: 81.6 kg BP: RVIDd: 3.2 cm (< 3.3) IVSd: 1.2 cm (0.6 - 1.1) LVIDd: 3.9 cm (3.9 - 5.3) LVPWd: 1.2 cm (0.6 - 1.1) IVSs: 1.8 cm LVIDs: 2.5 cm LVPWs: 1.8 cm LAESV Index (A-L): 20.09 ml/m Ao Diam: 3.2 cm (2.0 - 3.7) AV Cusp: 2.0 cm (1.5 - 2.6) LA Diam: 2.4 cm (2.7 - 3.8) MV EXCURSION: 14.230 mm (> 18.000) MV EF SLOPE: 68 mm/s (70 - 150) EPSS: 0.5 cm MV E Renard: 0.75 m/s MV DecT: 199 ms MV A Renard: 0.73 m/s MV E/A Ratio: 1.03 AR PHT: 904 ms RAP: 5.00 mmHg RVSP: 13.90 mmHg FINDINGS -------- This was a technically good study. The left ventricular size is normal. There is mild concentric left ventricular hypertrophy. Overa ll left ventricular systolic function is normal with, an EF between 55 - 60 %. The diastolic fillin g pattern is normal for the age of the patient 10.01. The right ventricle is normal in size. The left atrial size is normal. Normal LA size by volume 22+/-6 ml/m2. The right atrial size is normal. The aortic valve is trileaflet and appears structurally normal. There is mild aortic regurgitation. The mitral valve is normal. There is trace mitral regurgitation. The tricuspid valve appears structurally normal. Trace tricuspid regurgitation present. Right gaetano tricular systolic pressure is normal at < 35 mmHg. There is no pulmonic regurgitation present. The aortic root size is normal. Normal inferior vena cava with normal inspiratory collapse consistent with estimated right atrial pre ssure of 5 mmHg. There is no pericardial effusion. CONCLUSIONS -------- 1. The left ventricular size is normal. 2. There is mild concentric left ventricular hypertrophy. 3. Overall left ventricular systolic function is normal with, an EF between 55 - 60 %. 4. The diastolic filling pattern is normal for the age of the patient 10.01 5. There is mild aortic regurgitation. 6. There is trace mitral regurgitation. 7. Trace tricuspid regurgitation present. 8. There is no pericardial effusion. ELECTROLYSIS ENGINEER: Kailyn Auguste RDCS
[2020-04-22] MEDS ORDERED: ACETAMINOPHEN TAB 325 MG TAB PO PRN (14:29)
[2020-04-22] MEDS: ACETAMINOPHEN TAB 325 MG TAB PO PRN (14:50)
[2020-04-22] MEDS ORDERED: PANTOPRAZOLE 40 MG TABLET PO SCH (17:30)
[2020-04-22] MEDS ORDERED: KETOROLAC 15 MG/ML 1 ML VIAL IVP STA (18:09)
[2020-04-22] MEDS ORDERED: ACETAMINOPHEN TAB 325 MG TAB PO STA (18:10)
[2020-04-23] MEDS: ACETAMINOPHEN TAB 325 MG TAB PO PRN ×2 (00:12→08:45)
[2020-04-23 04:50] LABS: Cholesterol 208 mg/dL (<200); HDL Cholesterol 56 mg/dL (40-60); LDL Cholesterol,Calculated 123 mg/dL (0-99); Triglycerides 145 mg/dL (<150)
[2020-04-23] MEDS ORDERED: LEVOTHYROXINE 100 MCG TAB PO SCH (06:30)
[2020-04-23] MEDS ORDERED: ASPIRIN 325 MG TAB PO SCH (09:00)
[2020-04-23] MEDS ORDERED: ASPIRIN 81 MG PO SCH (09:00)
--- NOTE | 2020-04-23 11:17 | P.PN ---
Subjective Progress Note Date: 04/23/20 HISTORY OF PRESENT ILLNESS: Patient examined this morning. She denies chest pain or pressure. Denies shortness of breath. Vital signs are stable. Echocardiogram completed revealed ejection fraction 55-60%, mild aortic regurgitation, trace mitral regurgitation, and trace tricuspid regurgitation. PHYSICAL EXAM: VITAL SIGNS: Reviewed. GENERAL: Well-developed in no acute distress. NECK: Supple. No JVD or thyromegaly LUNGS: Respirations even and unlabored. Lungs essentially clear to auscultation bilaterally. HEART: Regular rate and rhythm. S1 and S2 heard. EXTREMITIES: Normal range of motion. No clubbing or cyanosis. Peripheral pulses intact. No lower extremity edema ASSESSMENT: Precordial chest pain Palpitations History of paroxysmal superventricular tachycardia PLAN: Patient underwent stress echo today which was negative for ischemia per Dr Huang. She may be discharged home today from a cardiac perspective and follow up on an outpatient basis. She is to continue with her metoprolol and take it on a daily basis due to her history of SVT and palpitations Nurse practitioner note has been reviewed by physician. Signing provider agrees with the documented findings, assessment, and plan of care. Objective - Vital Signs Vital signs: Vital Signs Temp 97.6 F 04/23/20 07:00 Pulse 67 04/23/20 07:00 Resp 17 04/23/20 07:00 BP 123/79 04/23/20 07:00 Pulse Ox 99 04/23/20 10:20 Intake & Output 04/22/20 04/23/20 04/23/20 18:59 06:59 18:59 Intake Total 700 Balance 700 Weight 81.647 kg Intake: Oral 700 Other: Voiding Method Toilet Toilet # Voids 2 1 - Labs CBC & Chem 7: 04/22/20 07:53 04/22/20 07:53 Labs: Abnormal Lab Results - Last 24 Hours (Table) 04/22/20 Range/Units 07:53 Cholesterol 208 H (<200) mg/dL LDL Cholesterol, Calc 123 H (0-99) mg/dL
--- NOTE | 2020-04-23 12:42 | ECHOS ---
STRESS ECHOCARDIOGRAM LUMASON: N/A Vial INDICATIONS: Chest pain. MEDICATIONS: BASELINE HEART RATE: 68 BASELINE BLOOD PRESSURE: 135/84 MAXIMUM HEART RATE: 141 MAXIMUM BLOOD PRESSURE: 218/79 85% MPHR: 139 100% MPHR: 163 METS: 6 MAXIMUM STAGE REACHED: II TOTAL EXERCISE TIME: 5 minutes CLINICAL INFORMATION: Baseline EKG shows sinus rhythm, normal axis, normal intervals. Patient exercised on Oliverio protocol for 5 minutes achieving 6 METs, 87% of predicted maximal heart rate without chest pain or diagnostic ST-segment depression. Baseline echo shows normal left ventricular size, wall motion, systolic function. Postexercise, there is normal hyperdynamic response of all segments of myocardium noted. CONCLUSIONS: 1. Limited exercise tolerance. 2. Negative stress test by EKG criteria. 3. Negative stress echo. MMODL / IJN: [id number] /
[2020-04-23 15:15] VITALS: BP 105/73; PULSE 73; RESP 16; TEMP 97.5
--- NOTE | 2020-04-23 23:32 | P.HPIM ---
History of Present Illness H&P Date: 04/23/20 Chief Complaint: Heart jumping out History of presenting complaint: This is a pleasant 59-year-old patient of . Chronic stable medical conditions include GERD, hard of hearing, hypertension, osteoarthritis, hypothyroid demonstrated radioactive iodine and now is hypothyroid, bilateral lower leg varicosities, gastric ulcer cystitis, Mattus esophagus, fatty liver. Patient was shoveling snow she suddenly felt as a part started palpating is going to jump out. Some discomfort in the left arm. Lasted for about 10 minutes. Patient was dizzy lightheaded felt a bit nauseated. No perspiration. Presented to the ER with a diagnosis of unstable angina. No prior cardiac history. It may be noted that patient is being backed off on a beta yecenia slowly by her grain trader because of being converted from hyperthyroid to hypothyroid ,Review of systems: GEN.: Tired EYES: None HEENT: None NECK: None RESPIRATORY: As above] CARDIOVASCULAR: As above GASTROINTESTINAL: [Some reflux GENITOURINARY: None MUSCULOSKELETAL: Joint pains LYMPHATICS: None HEMATOLOGICAL: None PSYCHIATRY: None NEUROLOGICAL: None Past medical history to include: Left leg superficial thrombosis, GERD, hard of hearing, hypertension, prostatitis, hypothyroid treated with radioactive iodine then became hypothyroid,, lower extremity varicosities, gastric ulcer, nuchal placated both of the lower jaw, Mattus esophagus, fatty liver, left ear tinnitus Social history: Patient is a high school librarian. Has 2 daughters. Physical examination: VITAL SIGNS: 97.6, 67, 17, 123 x 39, 99% room air GENERAL: BMI 29.1, sitting up, comfortable. EYES: Pupils equal. Conjunctiva normal. HEENT: External appearance of nose and ears normal, oral cavity grossly normal. NECK: JVD not raised; masses not palpable. HEART: First and second heart sounds are normal; no edema. LUNGS: Respiratory rate normal; clear to auscultation. ABDOMEN: Soft, nontender, liver spleen not palpable, no masses palpable. PSYCH: Alert and oriented x3; mood and affect normal. MUSCULAR skeletal: Evidence of OA the hands NEUROLOGICAL: Cranial nerves grossly intact; no facial asymmetry, power and sensation grossly intact. LYMPHATICS: No lymph nodes palpable in the axilla and neck INVESTIGATIONS, reviewed in the clinical context: White count 3 hemoglobin 12.9 platelets 187 lymphocytes 0.9 potassium 4.1 cre atinine 0.63 Troponin I 3 negative LDL 123 Coronavirus [PCF]-not detected EKG tracing personally reviewed by me-normal sinus rhythm Chest x-ray film personally reviewed by me-lung deutsch clear Assessment and plan: -This is a patient was shoveling snow current episode of heart jumping with some associated discomfort in the dizziness lightheadedness some nausea area and lasted for about 10 minutes. Could be angina. For cardiac workup -GERD, use Prilosec -Hard of hearing -Essential hypertension, continue with beta yecenia -Primary osteoarthritis, use Tylenol when necessary -Hypothyroid with a prior history of hyperthyroidism treated with radioactive iodine, continue with Synthroid -Slade's esophagus, continue with Prilosec -Hepatic steatosis Care was discussed with the patient. Cartilage was consulted. Stress test was ordered. 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 History of Any Multi-Drug Resistant Organisms: None Reported Past Surgical History: Adenoidectomy, Hysterectomy, Tonsillectomy, Tubal Ligation Additional Past Surgical History / Comment(s): Laser removal lesion lower jaw, EGDs, colonoscopy, cyst removed L hand, bilateral bunionectomies, bilateral feet hammer toe surgeries, Past Anesthesia/Blood Transfusion Reactions: Motion Sickness Smoking Status: Former smoker - Past Family History Mother Family Medical History: Cancer Additional Family Medical History / Comment(s): basal cell, lung cancer with right upper lobectomy, mastectomy from breast cancer followed by radiation. Father Family Medical History: AFIB, Cancer Additional Family Medical History / Comment(s): basal cell, enlarged heart from mesothelioma Medications and Allergies Home Medications Medication Instructions Recorded Confirmed Type Aspirin EC [Ecotrin Low Dose] 81 mg PO DAILY 01/09/20 04/22/20 History Levothyroxine Sodium 100 mcg PO DAILY 04/22/20 04/22/20 History Omeprazole 40 mg PO AC-SUPPER 04/22/20 04/22/20 History Metoprolol Succinate (ER) [Toprol 25 mg PO DAILY #90 tab 04/23/20 Rx Xl] Allergies Allergy/AdvReac Type Severity Reaction Status Date / Time Quinolones Allergy Severe Rash/Hives Verified 04/22/20 08:42 Sulfa (Sulfonamide Allergy Rash/Hives/Vision Verified 04/22/20 08:42 Antibiotics) Disturbance Physical Exam Vitals: Vital Signs Temp Pulse Pulse Resp BP BP Pulse Ox 04/23/20 10:20 99 04/23/20 07:00 97.6 F 67 17 123/79 99 04/23/20 03:43 98.1 F 65 16 111/69 97 04/22/20 20:56 97.9 F 69 16 112/70 98 04/22/20 13:22 98 F 71 16 129/83 98 04/22/20 13:00 97.8 F 71 18 121/82 98 04/22/20 11:00 71 18 121/82 98 Intake and Output 04/22/20 04/23/20 04/23/20 22:59 06:59 14:59 Intake Total 700 Balance 700 Intake: Oral 700 Other: Voiding Method Toilet Toilet # Voids 2 1 Results CBC & Chem 7: 04/22/20 07:53 04/22/20 07:53 Labs: Abnormal Lab Results - Last 24 Hours (Table) 04/22/20 Range/Units 07:53 Cholesterol 208 H (<200) mg/dL LDL Cholesterol, Calc 123 H (0-99) mg/dL Thrombosis Risk Factor Assmnt - Choose All That Apply Any of the Below Risk Factors Present?: Yes Each Factor Represents 1 point: Age 41-60 years, Obesity (BMI >25) Other Risk Factors: No Other congenital or acquired thrombophilia - If yes, enter type in comment: No Thrombosis Risk Factor Assessment Total Risk Factor Score: 2 Thrombosis Risk Factor Assessment Level: Low Risk
--- NOTE | 2020-04-23 23:35 | P.DS ---
Providers Date of admission: 04/22/20 10:20 Expected date of discharge: 04/23/20 Attending physician: Chano Odell Consults: 04/22/20 10:20 Consult Physician Urgent Consulting Provider: Gil Huang Consult Reason/Comments: Chest pain Do you want consulting provider notified?: Yes Primary care physician: [facility] Course: Chief Complaint: Heart jumping out History of presenting complaint: This is a pleasant 59-year-old patient of . Chronic stable medical conditions include GERD, hard of hearing, hypertension, osteoarthritis, hypothyroid demonstrated radioactive iodine and now is hypothyroid, bilateral lower leg varicosities, gastric ulcer cystitis, Mattus esophagus, fatty liver. Patient was shoveling snow she suddenly felt as a part started palpating is going to jump out. Some discomfort in the left arm. Lasted for about 10 minutes. Patient was dizzy lightheaded felt a bit nauseated. No perspiration. Presented to the ER with a diagnosis of unstable angina. No prior cardiac history. It may be noted that patient is being backed off on a beta yecenia slowly by her electrical instrumentation technician because of being converted from hyperthyroid to hypothyroid Patient's troponins were negative. Stress echocardiogram was negative. Patient felt to have paroxysmal arrhythmia from withdrawal of beta yecenia. Resumed on the same. Consultation: Dr. Idania Huang from cardiology Past medical history to include: Left leg superficial thrombosis, GERD, hard of hearing, hypertension, prostatitis, hypothyroid treated with radioactive iodine then became hypothyroid,, lower extremity varicosities, gastric ulcer, nuchal placated both of the lower jaw, Mattus esophagus, fatty liver, left ear tinnitus Social history: Patient is a primary school principal. Has 2 daughters. Physical examination: VITAL SIGNS: 97.5, 73, 16, 105/73, 97% room air GENERAL: BMI 29.1, sitting up, comfortable. EYES: Pupils equal. Conjunctiva normal. NECK: JVD not raised; masses not palpable. HEART: First and second heart sounds are normal; no edema. LUNGS: Respiratory rate normal; clear to auscultation. ABDOMEN: Soft, nontender, liver spleen not palpable, no masses palpable. PSYCH: Alert and oriented x3; mood and affect normal. MUSCULAR skeletal: Evidence of OA the hands INVESTIGATIONS, reviewed in the clinical context: White count 3 hemoglobin 12.9 platelets 187 lymphocytes 0.9 potassium 4.1 creatinine 0.63 Troponin I 3 negative LDL 123 Coronavirus [PCF]-not detected EKG tracing personally reviewed by me-normal sinus rhythm Chest x-ray film personally reviewed by me-lung deutsch clear Stress echocardiogram-negative for ischemia 2-D echocardiogram-EF 55-60% Assessment and plan: -Paroxysmal arrhythmia likely from patient cutting back her dose of beta yecenia. Self-limiting -GERD, use Prilosec -Hard of hearing -Essential hypertension, continue with beta yecenia -Primary osteoarthritis, use Tylenol when necessary -Hypothyroid with a prior history of hyperthyroidism treated with radioactive iodine, continue with Synthroid -Duggan's esophagus, continue with Prilosec -Hepatic steatosis Disposition: Home Plan - Discharge Summary Discharge Rx Participant: No New Discharge Prescriptions: New Metoprolol Succinate (ER) [Toprol Xl] 25 mg PO DAILY #90 tab Continue Aspirin EC [Ecotrin Low Dose] 81 mg PO DAILY Levothyroxine Sodium 100 mcg PO DAILY Omeprazole 40 mg PO AC-SUPPER Discontinued Metoprolol Succinate (ER) [Toprol XL] 25 mg PO Q48H Discharge Medication List Aspirin EC [Ecotrin Low Dose] 81 mg PO DAILY 01/09/20 [History] Levothyroxine Sodium 100 mcg PO DAILY 04/22/20 [History] Omeprazole 40 mg PO AC-SUPPER 04/22/20 [History] Metoprolol Succinate (ER) [Toprol Xl] 25 mg PO DAILY #90 tab 04/23/20 [Rx] Follow up Appointment(s)/Referral(s): Robert Egan MD [Primary Care Provider] - 04/24/20 9:00 am Gil Huang MD [STAFF PHYSICIAN] - 05/01/20 3:45 pm Patient Instructions/Handouts: Angina (DC), Acute Coronary Syndrome (DC) Discharge Disposition: HOME SELF-CARE
[2020-04-24] MEDS ORDERED: METOPROLOL SUCCINATE (ER) 25 MG TAB.ER.24H PO SCH (09:00)
== END 2020-04-23 15:23 | disposition home or self-care (01) ==
LOC: EC 07:35 → 6NMEDSUR 10:20
PROVIDERS: ADMIT Hospitalist; ATTEND Hospitalist
DX: I47.1 Supraventricular tachycardia (principal); R00.2 Palpitations; I24.9 Acute ischemic heart disease, unspecified; I10 Essential (primary) hypertension; K21.9 Gastro-esophageal reflux disease without esophagitis; K22.70 Barrett's esophagus without dysplasia; E03.9 Hypothyroidism, unspecified; M19.91 Primary osteoarthritis, unspecified site; K76.0 Fatty (change of) liver, not elsewhere classified; H91.90 Unspecified hearing loss, unspecified ear; E05.90 Thyrotoxicosis, unspecified without thyrotoxic crisis or storm; I83.90 Asymptomatic varicose veins of unspecified lower extremity; K25.9 Gastric ulcer, unspecified as acute or chronic, without hemorrhage or perforation; N30.90 Cystitis, unspecified without hematuria; T50.996A Underdosing of other drugs, medicaments and biological substances, initial encounter; Z79.82 Long term (current) use of aspirin; Z87.11 Personal history of peptic ulcer disease; Z79.890 Hormone replacement therapy; Z87.891 Personal history of nicotine dependence; Z90.710 Acquired absence of both cervix and uterus; Z80.1 Family history of malignant neoplasm of trachea, bronchus and lung; Z20.822 Contact with and (suspected) exposure to COVID-19; Z91.128 Patient's intentional underdosing of medication regimen for other reason
CPT/HCPCS: 96366 ×3; 96375; 93005 ×2; 96376; 96365; 99291; 36415; 93306; 93351; 85379; 80061; 80053; 82550; 83735; 84484; 85025; 85610; 85730; 87635; 71046; G0378 ×2; J1644 ×2; J1885

== ENCOUNTER 2020-05-13 07:51 | Day surgery (SDC) | payer OTHER ==
[2020-05-09 09:53] VITALS: BMI 29.0
[~2020-05-13 07:51] MED LIST changes: -LIDOCAINE 1% 20 ML VIAL (10MG/ML) FOR IV START INTRADERMA PRN
[2020-05-13 08:19] VITALS: TEMP 97.5
[2020-05-13] MEDS ORDERED: LIDOCAINE 1% (10MG/ML) FOR IV START SQ ONE (08:19)
[2020-05-13] MEDS ORDERED: LIDOCAINE 1% INJ 10MG/ML (20 ML MDV) ONE (09:17)
[2020-05-13] MEDS ORDERED: PROPOFOL 10 MG/ML 20 ML VIAL IV ONE (09:17)
--- NOTE | 2020-05-13 09:47 | P.PCN ---
Date of Procedure: 05/13/20 Description of Procedure: BRIEF HISTORY: Patient is a 59-year-old female with a history of Duggan's esophagus who presents for outpatient EGD for evaluation of epigastric pain. Currently on omeprazole therapy. Previous EGD was significant for Duggan's esophagus. PROCEDURE PERFORMED: Esophagogastroduodenoscopy with biopsy. PREOPERATIVE DIAGNOSIS: Epigastric abdominal pain, history of Duggan's esophagus. ESTIMATED BLOOD LOSS: Minimal. IV sedation per anesthesia. PROCEDURE: After informed consent was obtained, the patient was brought into the endoscopy unit. IV sedation was administered by Anesthesia under continuous monitoring. Initially the Olympus GIF-190 video endoscope was inserted into the mouth. Esophagus intubated without any difficulty. It was gradually advanced into the stomach and duodenum and carefully examined. The bulb and the second part of the duodenum appeared normal, with biopsies taken. The scope at this time was withdrawn to the stomach, adequately insufflated with air, and upon careful examination, mucosa of the antrum, body, cardia and the fundus appeared normal, with biopsies taken. The scope was then withdrawn into the esophagus. The GE junction was located at 40 cm from the incisors, with 2 cm [place]-colored mucosa consistent with history of Duggan's esophagus and lower esophagus biopsies taken. The esophagus appeared normal. There were no erosions or ulcerations seen and the patient tolerated the procedure well. IMPRESSION: 1. Short segment Duggan's esophagus. 2. Biopsies of the duodenum, antrum body and GE junction. RECOMMENDATIONS: The findings of this examination were discussed with the patient and her family. Okay to resume diet. Okay to resume medications. Await pathology from biopsies. Follow up in the GI clinic as scheduled.
[2020-05-13 09:48] VITALS: BP 108/63; PULSE 61; RESP 12
== END 2020-05-13 10:45 | disposition home or self-care (01) ==
LOC: ORWHC2ENDO 07:51
PROVIDERS: ATTEND Internal Medicine
DX: K22.70 Barrett's esophagus without dysplasia (principal); K29.50 Unspecified chronic gastritis without bleeding; D72.820 Lymphocytosis (symptomatic); K21.9 Gastro-esophageal reflux disease without esophagitis; I10 Essential (primary) hypertension; Z90.89 Acquired absence of other organs; Z98.890 Other specified postprocedural states; Z87.891 Personal history of nicotine dependence; Z86.718 Personal history of other venous thrombosis and embolism; Z79.82 Long term (current) use of aspirin; Z98.51 Tubal ligation status; Z90.710 Acquired absence of both cervix and uterus; Z79.890 Hormone replacement therapy; Z79.899 Other long term (current) drug therapy; Z88.1 Allergy status to other antibiotic agents; Z88.2 Allergy status to sulfonamides
CPT/HCPCS: 88305; 43239; J2001; J2704

== ENCOUNTER → 2021-03-22 | Outpatient (CLI) | payer OTHER ==
[2021-03-22 16:40] LABS: Basophils # (A) 0.01 X 10*3/uL (0.00-0.10); Basophils % (A) 0.3 %; Eosinophils # (A) 0.13 X 10*3/uL (0.04-0.35); Eosinophils % (A) 3.5 %; HCT 38.1 % (37.2-46.3); HGB 12.2 g/dL (12.0-15.0); Lymphocytes # (A) 1.17 X 10*3/uL (0.90-5.00); Lymphocytes % (A) 31.8 %; MCH 28.4 pg (27.0-32.0); MCV 88.6 fL (80.0-97.0); Mean Platelet Volume 10.7 fL (9.5-12.2); Monocytes # (A) 0.36 X 10*3/uL (0.20-1.00); Monocytes % (A) 9.8 %; Neutrophils # (A) 2.01 X 10*3/uL (1.80-7.70); Neutrophils % (A) 54.6 %; Platelet Count 202 X 10*3/uL (140-440); RDW 13.3 % (11.5-14.5); WBC 3.68 X 10*3/uL (4.50-10.00)
[2021-03-22 17:53] LABS: African American GFR (CKD) 100.9 (60.0-200.0); Blood Urea Nitrogen 19.3 mg/dL (9.0-27.0); Carbon Dioxide 25.3 mmol/L (20.0-27.5); Potassium 4.3 mmol/L (3.5-5.5)
== END | disposition home or self-care (01) ==
LOC: LABPAT 09:45
PROVIDERS: ATTEND Obstetrics & Gynecology
DX: Z01.812 Encounter for preprocedural laboratory examination (principal); N81.11 Cystocele, midline
CPT/HCPCS: 36415; 80051; 82565; 82947; 84520; 85025; 87077; 87086; 87186

== ENCOUNTER 2021-03-31 07:47 | Day surgery (SDC) | payer OTHER ==
[2021-03-25 10:01] VITALS: BMI 29.0
--- NOTE | 2021-03-27 11:22 | HP ---
HISTORY AND PHYSICAL DATE OF SURGERY: 03/31/2021 HISTORY OF PRESENT ILLNESS: The patient is a 60-year-old 3, para 3-0-0-3, who presented to the office with complaints of increasing discomfort secondary to prolapse. Examination demonstrated a grade 3 cystocele present. We discussed options for treatment and she has requested surgical repair. She has previously undergone abdominal hysterectomy many years ago, roughly 2003. PAST MEDICAL HISTORY: Significant for asthma. She was recently diagnosed with Duggan's esophagus. She has had occasional stints of depression or mood changes. She also has hyperlipidemia and hyperthyroidism. She has had peptic ulcer disease and apparently osteoporosis as well. PAST SURGICAL HISTORY: Significant for bunionectomy, total abdominal hysterectomy, salpingo-oophorectomy prior to that, and also tonsillectomy as a child. There were apparently no anesthetic concerns. OBSTETRICAL HISTORY: 3, para 3-0-0-3, with 3 vaginal deliveries without complications. Method of contraception has been hysterectomy. GYNECOLOGIC HISTORY: Unremarkable, with no history of any infections to include STDs. FAMILY HISTORY: Noncontributory. SOCIAL HISTORY: The patient is and is a former smoker but quit approximately 2017. She reports occasional alcohol. No other social concerns. CURRENT MEDICATIONS: Current medications include baby aspirin daily, Claritin daily, levothyroxine 0.112 mg daily, metoprolol 25 mg daily, and omeprazole daily. ALLERGIES: FLUOROQUINOLONE DRUGS cause problems. She has also had a reaction to SULFA in the past. REVIEW OF SYSTEMS: Confined to history of present illness. PHYSICAL EXAMINATION: Vital signs are stable. The patient is afebrile. In general, this is a well- developed, well-nourished white female in no acute distress. Her heart has a regular rhythm and rate without murmur. Her lungs are clear to auscultation bilaterally in all deutsch. Her abdomen is nondistended, has normoactive bowel sounds, is soft, nontender, and without any palpable masses, hepatosplenomegaly, or hernias. Her extremities are without any cyanosis, clubbing, or edema and are nontender to palpation bilaterally. Pelvic examination demonstrates an absent uterus. She does have a small right ovarian cyst which has been followed by ultrasound, which is decreasing in size over time, which is nonpalpable. There is a grade 3 cystocele present with otherwise normal vaginal mucosa and the apex. ASSESSMENT AND PLAN: Symptomatic cystocele. We discussed options for treatment and she has requested surgical repair. The risks and complications of anterior colporrhaphy have been discussed at length, including the risks for bleeding, bleeding requiring transfusion, infection, and injury to local structures which specifically include primarily the bladder. She has understood all this and agrees to proceed. We are scheduled as noted above for March 31, 2021. The patient will be pretreated with estrogen cream for 2 weeks in order to make healing more effective. MMODL / IJN: [id number] /
[~2021-03-31 07:47] MED LIST changes: +DEXAMETHASONE SOD PHOSPHATE 4 MG/ML 1 ML VIAL IV ONE; +HYDROmorphone 0.5 MG/0.5 ML SYRINGE IVP PRN
[2021-03-31] MEDS ORDERED: SCOPOLAMINE 1.5MG/72HR PATCH TRANSDERM ONE (08:26)
[2021-03-31] MEDS ORDERED: LIDOCAINE 1% (10MG/ML) FOR IV START INTRADERMA ONE (08:26)
[2021-03-31] MEDS: ONDANSETRON 4 MG/2 ML VIAL IVP ONE ×2 (08:28→10:18)
[2021-03-31] MEDS ORDERED: LIDOCAINE 1% INJ 10MG/ML (20 ML MDV) ONE (09:08)
[2021-03-31] MEDS ORDERED: SUCCINYLCHOLINE CHLORIDE 100 MG/5 ML SYR IV ONE (09:08)
[2021-03-31] MEDS ORDERED: KETOROLAC 15 MG/ML 1 ML VIAL ONE (09:08)
[2021-03-31] MEDS ORDERED: PROPOFOL 10 MG/ML 20 ML VIAL IV ONE (09:08)
[2021-03-31] MEDS ORDERED: MIDAZOLAM 2 MG/2 ML VIAL ONE (09:08)
[2021-03-31] MEDS ORDERED: ePHEDrine 50 MG/ML 1 ML AMP ONE (09:08)
[2021-03-31] MEDS ORDERED: PHENYLEPHRINE-0.9% NACL SYG 1,000 MCG/10 ML SYRINGE ONE (09:08)
[2021-03-31] MEDS ORDERED: fentaNYL (PF) 50 MCG/ML 2 ML AMP ONE (09:08)
[2021-03-31] MEDS ORDERED: VASOPRESSIN 20 UNIT/ML 1 ML VIAL SQ ONE ×2 (09:31)
[2021-03-31] MEDS ORDERED: diphenhydrAMINE 50 MG/ML 1 ML VIAL IVP PRN (10:01)
[2021-03-31] MEDS ORDERED: SIMETHICONE 80 MG CHEWABLE PO PRN (10:01)
[2021-03-31] MEDS ORDERED: IBUPROFEN 600 MG TAB PO PRN (10:01)
[2021-03-31] MEDS ORDERED: Acetaminophen-Codeine 300-30mg TAB PO PRN ×2 (10:01)
[2021-03-31] MEDS ORDERED: ONDANSETRON 4 MG/2 ML VIAL IVP PRN (10:01)
[2021-03-31] MEDS ORDERED: METOCLOPRAMIDE 5 MG/ML 2 ML VIAL IVP PRN (10:01)
[2021-03-31] MEDS ORDERED: LACTATED RINGERS 1,000 ML IV ONE (10:05)
--- NOTE | 2021-03-31 10:09 | P.OP ---
Date of Procedure: 03/31/21 Preoperative Diagnosis: #1. Symptomatic grade 3+ cystocele Postoperative Diagnosis: Same Procedure(s) Performed: #1. Anterior colporrhaphy Anesthesia: JOSE Surgeon: Mayur Gonzalez Air Control/Anti Air Warfare Officer #1: Glenis Ferrer Estimated Blood Loss (ml): 5 IV fluids (ml): 600 Urine output (ml): 50 Pathology: none sent Condition: stable Disposition: PACU Operative Findings: Examination under anesthesia confirmed the findings of a grade 3-3+ cystocele. The postprocedural result appeared to be excellent. There was clear urine both at the beginning and end of the case. Description of Procedure: The patient was prepped and draped in usual fashion after general endotracheal anesthesia was administered by the anesthesiologist. A weighted speculum was placed and the uterosacral dimples grasped with Allis clamps. The bladder was drained of approximately 50 mL of clear grace urine. The vesicovaginal mucosa was infused with diluted vasopressin solution. Transverse incision was made the n from Allis to Allis at the top of the dissection and the Allises transferred to the incision line. The vesicovaginal mucosa was undermined in the midline using Metzenbaum scissors and divided along the way with Allis clamps placed along the margins. The mucosa was then divided from the underlying tissues both sharply and bluntly. After adequate dissection had been carried out, serial Chari plication stitches were placed from the urethral apex to the apex of the vagina after placing a Gustafson catheter with demonstrated clear grace urine. The intervening redundant vaginal mucosa was trimmed with Metzenbaum scissors and discarded. The vesicovaginal mucosa was then closed with a running locking stitch of 2-0 Vicryl from urethral apex apex of vagina. The vagina was packed with half-inch iodoform covered with bacitracin ointment. Estimated blood loss for the case was approximate 5 mL. There were no complications. All sponge, instrument, and needle counts were correct. The patient tolerated the procedure well and proceeded to the recovery room in stable condition.
[2021-03-31] MEDS ORDERED: LACTATED RINGERS 1,000 ML IV SCH (10:15)
[2021-03-31] MEDS: KETOROLAC 30 MG/ML 1 ML VIAL IVP PRN ×2 (10:28→18:59)
[2021-03-31] MEDS ORDERED: HYDROmorphone 0.5 MG/0.5 ML SYRINGE IVP ONE (10:29)
[2021-03-31 12:48] VITALS: RESP 14
[2021-03-31 21:43] VITALS: TEMP 97.6
[2021-03-31] MEDS: SENNOSIDES-DOCUSATE SODIUM 1 EACH TAB PO SCH (22:00)
[2021-04-01] MEDS: KETOROLAC 30 MG/ML 1 ML VIAL IVP PRN (03:08)
[2021-04-01 03:43] VITALS: BP 108/61; PULSE 80
[2021-04-01 07:46] LABS: Basophils % (A) 0 %; Eosinophils # (A) 0.1 k/uL (0-0.7); Eosinophils % (A) 1 %; HCT 36.7 % (34.0-46.0); HGB 11.9 gm/dL (11.4-16.0); Lymphocytes # (A) 1.1 k/uL (1.0-4.8); Lymphocytes % (A) 26 %; MCH 29.6 pg (25.0-35.0); MCHC 32.5 g/dL (31.0-37.0); MCV 91.1 fL (80.0-100.0); Mean Platelet Volume 7.5; Monocytes # (A) 0.2 k/uL (0-1.0); Monocytes % (A) 5 %; Neutrophils # (A) 2.9 k/uL (1.3-7.7); Neutrophils % (A) 67 %; Platelet Count 167 k/uL (150-450); RBC 4.03 m/uL (3.80-5.40); RDW 13.4 % (11.5-15.5); WBC 4.3 k/uL (3.8-10.6)
[2021-04-01] MEDS ORDERED: ACETAMINOPHEN TAB 325 MG TAB PO PRN (10:04)
[2021-04-01] MEDS: SENNOSIDES-DOCUSATE SODIUM 1 EACH TAB PO SCH (10:22)
--- NOTE | 2021-04-01 10:41 | P.DS ---
Providers Expected date of discharge: 04/01/21 Attending physician: Mayur Gonzalez Primary care physician: Robert Egan - Discharge Diagnosis(es) (1) Cystocele Current Visit: Yes Status: Acute Hospital Course: The patient is a 60-year-old 3 para 3 who presented to the office with increasing discomfort secondary to prolapse. She was found with a grade 3 cystocele. After discussion of options for treatment, she requested definitive therapy with surgical repair. She therefore was taken the operating room where she underwent anterior colporrhaphy and uncomplicated fashion. Her catheter was left in overnight along with a vaginal packing which removed early this morning. She has since been able to void without difficulty with no residual whatsoever. She has minimal ongoing pain. Vital signs and temperature worse normal throughout the postoperative course. She was deemed stable for discharge on postoperative day #1 was discharged home to follow-up in the office in 6 weeks' time routinely. She was instructed to do no heavy lifting over the next 6 weeks and to abstain from anything in the vagina over the same period of time. She is additionally to call for any significantly increased bleeding, fever, pain, signs or symptoms of infection, or anything else that concerned her. She understood her instructions and agrees to follow up as noted above. Discharge medications included continued home medications as well as a prescription for tramadol 50 mg, 1-2 by mouth every 6 hours when necessary pain, #12 dispensed with no refills. Discharge hemoglobin and hematocrit were 11.9 and 36.7 respectively. Procedures: #1. Anterior colporrhaphy #2. Voiding trial Patient Condition at Discharge: Stable Plan - Discharge Summary Discharge Rx Participant: Yes New Discharge Prescriptions: No Action Aspirin EC [Ecotrin Low Dose] 81 mg PO DAILY Levothyroxine Sodium 112 mcg PO DAILY Omeprazole 20 mg PO W/SUPPER Metoprolol Succinate (ER) [Toprol Xl] 25 mg PO DAILY #90 tab Calcium/D3/Zinc/Copper/Eze [Citracal-D3 Maximum Plus Caplt] 1 each PO DAILY Ascorbic Acid/Multivit-Min [Emergen-C 1,000 mg Packet] 1,000 mg PO DAILY Estradiol Cream [Estrace Cream 0.01%] 0.5 gm VAGINAL DIRECTED ALPRAZolam [Xanax] 0.25 mg PO DAILY PRN PRN Reason: Anxiety Discharge Medication List Aspirin EC [Ecotrin Low Dose] 81 mg PO DAILY 11/10/20 [History] Levothyroxine Sodium 112 mcg PO DAILY 04/22/20 [History] Omeprazole 20 mg PO W/SUPPER 04/22/20 [History] Metoprolol Succinate (ER) [Toprol Xl] 25 mg PO DAILY #90 tab 04/23/20 [Rx] Ascorbic Acid/Multivit-Min [Emergen-C 1,000 mg Packet] 1,000 mg PO DAILY 03/25/21 [History] Calcium/D3/Zinc/Copper/Eze [Citracal-D3 Maximum Plus Caplt] 1 each PO DAILY 03/25/21 [History] Estradiol Cream [Estrace Cream 0.01%] 0.5 gm VAGINAL DIRECTED 03/25/21 [Hist ory] ALPRAZolam [Xanax] 0.25 mg PO DAILY PRN 03/31/21 [History] Follow up Appointment(s)/Referral(s): Mayur Gonzalez MD [STAFF PHYSICIAN] - 6 Weeks Patient Instructions/Handouts: Cystocele (DC) Discharge Disposition: HOME SELF-CARE
== END 2021-04-01 11:10 | disposition home or self-care (01) ==
LOC: OR 07:47 → 4FBP 10:06 → OR 04-01 11:10
PROVIDERS: ATTEND Obstetrics & Gynecology
DX: N81.11 Cystocele, midline (principal); J45.909 Unspecified asthma, uncomplicated; K22.70 Barrett's esophagus without dysplasia; E78.5 Hyperlipidemia, unspecified; E05.90 Thyrotoxicosis, unspecified without thyrotoxic crisis or storm; Z88.1 Allergy status to other antibiotic agents; Z88.2 Allergy status to sulfonamides; I10 Essential (primary) hypertension; M19.90 Unspecified osteoarthritis, unspecified site; K21.9 Gastro-esophageal reflux disease without esophagitis; G43.909 Migraine, unspecified, not intractable, without status migrainosus; Z86.718 Personal history of other venous thrombosis and embolism; Z87.891 Personal history of nicotine dependence; Z20.822 Contact with and (suspected) exposure to COVID-19; Z79.899 Other long term (current) drug therapy
CPT/HCPCS: 86900; 86901; 85025; 86850; 87635; 57240; J1200; J1100; J0690; J2405; J1885 ×2; J1170

== ENCOUNTER → 2021-04-21 | Outpatient (CLI) | payer OTHER ==
--- NOTE | 2021-04-23 09:11 | MM ---
Reason for exam: screening (asymptomatic). Last mammogram was performed 1 year and 4 months ago. History: Patient is postmenopausal and has history of other cancer at age 49. Family history of breast cancer in mother at age 75, breast cancer in maternal aunt at age 55, and breast cancer in maternal aunt at age 50. Physical Findings: A clinical breast exam by your physician is recommended on an annual basis and results should be correlated with mammographic findings. MG Screening Mammo w CAD Bilateral CC and MLO view(s) were taken. Prior study comparison: January 03, 2020, bilateral MG screening mammo w CAD. November 03, 2018, bilateral MG screening mammo w CAD. There are scattered fibroglandular densities. Central inner right CC asymmetric density is unchanged. No significant changes when compared with prior studies. ASSESSMENT: Incomplete: need additional imaging evaluation, BI-RAD 0 RECOMMENDATION: Ultrasound of both breasts. (for breast pain) [facility] will attempt to contact patient to return for ultrasound.
== END | disposition home or self-care (01) ==
LOC: RADMAMWWP 10:03
PROVIDERS: ATTEND Obstetrics & Gynecology
DX: Z12.31 Encounter for screening mammogram for malignant neoplasm of breast (principal); Z80.3 Family history of malignant neoplasm of breast; Z78.0 Asymptomatic menopausal state
CPT/HCPCS: 77067

== ENCOUNTER → 2021-04-29 | Outpatient (CLI) | payer OTHER ==
--- NOTE | 2021-04-29 13:58 | USB ---
Reason for exam: additional evaluation requested from abnormal screening. History: Patient is postmenopausal and has history of other cancer at age 49. Family history of breast cancer in mother at age 75, breast cancer in maternal aunt at age 55, and breast cancer in maternal aunt at age 50. Physical Findings: A clinical breast exam by your physician is recommended on an annual basis and results should be correlated with mammographic findings. US Breast Workup Limited [place] Right limited breast ultrasound including focal area of concern, retroareolar and axilla demonstrates no cystic or solid lesion seen. Left limited breast ultrasound including focal area of concern, retroareolar and axilla demonstrates no cystic or solid lesion seen. These results were verbally communicated with the patient and result sheet given to the patient on 04/29/21. ASSESSMENT: Negative, BI-RAD 1 RECOMMENDATION: Return to routine screening mammogram schedule for both breasts. Manage on a clinical basis with regard to pain.
== END | disposition home or self-care (01) ==
LOC: RADUSWWP 12:50
PROVIDERS: ATTEND Obstetrics & Gynecology
DX: R92.8 Other abnormal and inconclusive findings on diagnostic imaging of breast (principal); Z78.0 Asymptomatic menopausal state; Z80.3 Family history of malignant neoplasm of breast

== ENCOUNTER 2021-08-29 06:47 | Emergency (ER) | payer OTHER ==
[2021-08-29 06:54] VITALS: RESP 18; TEMP 98.3
--- NOTE | 2021-08-29 07:28 | ED ---
Extremity Problem HPI - General Chief complaint: Extremity Problem,Nontraumatic Stated complaint: Post-op RT leg pain Time Seen by Provider: 08/29/21 06:59 Source: patient, RN notes reviewed Mode of arrival: ambulatory Limitations: no limitations - History of Present Illness Initial comments: This a 61-year-old female presents emergency Department with chief complaint of right leg pain. Patient states that she had laser vein surgery 2 weeks ago. Patient states she has had a history of blood clots. She does see Dr. Rodas. Patient denies any fevers chills but states she feels like appointment, twisting sensation in her right leg. Patient denies any chest pain or shortness of breath. No trauma she does take a baby aspirin daily. - Related Data Home Medications Medication Instructions Recorded Confirmed Aspirin EC [Ecotrin Low Dose] 81 mg PO DAILY 01/09/20 03/31/21 Levothyroxine Sodium 112 mcg PO DAILY 04/22/20 03/31/21 Omeprazole 20 mg PO W/SUPPER 04/22/20 03/31/21 Ascorbic Acid/Multivit-Min 1,000 mg PO DAILY 03/25/21 03/31/21 [Emergen-C 1,000 mg Packet] Calcium/D3/Zinc/Copper/Eze 1 each PO DAILY 03/25/21 03/31/21 [Citracal-D3 Maximum Plus Caplt] Estradiol Cream [Estrace Cream 0.5 gm VAGINAL DIRECTED 03/25/21 03/31/21 0.01%] ALPRAZolam [Xanax] 0.25 mg PO DAILY PRN 03/31/21 03/31/21 Previous Rx's Medication Instructions Recorded Metoprolol Succinate (ER) [Toprol 25 mg PO DAILY #90 tab 04/23/20 Xl] Allergies Allergy/AdvReac Type Severity Reaction Status Date / Time Quinolones Allergy Severe Rash/Hives Verified 03/31/21 08:09 ciprofloxacin [From Cipro] Allergy Unknown Verified 03/31/21 08:09 Sulfa (Sulfonamide Allergy Rash/Hives/Vision Verified 03/31/21 08:09 Antibiotics) Disturbance Review of Systems ROS Statement: Those systems with pertinent positive or pertinent negative responses have been documented in the HPI. ROS Other: All systems not noted in ROS Statement are negative. 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 History of Any Multi-Drug Resistant Organisms: None Reported Past Surgical History: Adenoidectomy, Hysterectomy, Tonsillectomy, Tubal Ligation Additional Past Surgical History / Comment(s): Laser removal lesion lower jaw, EGDs, colonoscopy, cyst removed L hand, bilateral bunionectomies, bilateral feet hammer toe surgeries, vericose veins Past Anesthesia/Blood Transfusion Reactions: Motion Sickness Past Psychological History: Anxiety, Depression Smoking Status: Former smoker Past Alcohol Use History: Rare Past Drug Use History: None Reported - Past Family History Mother Family Medical History: Cancer Additional Family Medical History / Comment(s): basal cell, lung, breast cancer Father Family Medical History: AFIB, Cancer Additional Family Medical History / Comment(s): basal cell, enlarged heart from mesothelioma General Exam General appearance: alert, in no apparent distress Head exam: Present: atraumatic, normocephalic, normal inspection Respiratory exam: Present: normal lung sounds bilaterally. Absent: respiratory distress, wheezes, rales, rhonchi, stridor Cardiovascular Exam: Present: regular rate, normal rhythm, normal heart sounds. Absent: systolic murmur, diastolic murmur, rubs, gallop, clicks Extremities exam: Present: other (Right proximal calf to distal thigh region there is a palpable lump noted no erythema no ecchymosis.) Course Vital Signs 08/29/21 06:49 Temperature 98.3 F Pulse Rate 72 Respiratory 18 Rate Blood Pressure 118/77 O2 Sat by Pulse 99 Oximetry Medical Decision Making - Medical Decision Making Ultrasound shows postsurgical changes possible clot within the superficial vessel close to a deep vessel. I did contact Dr. Rodas recommend patient to be discharged to his office now for evaluation. He does feel this is most likely just postsurgical changes. Disposition Clinical Impression: Leg pain, right, Superficial thrombophlebitis Disposition: HOME SELF-CARE Condition: Stable Instructions (If sedation given, give patient instructions): Superficial Thrombophlebitis (ED) Additional Instructions: Please return to the Emergency Department if symptoms worsen or any other concerns. Is patient prescribed a controlled substance at d/c from ED?: No Referrals: Robert Egan MD [Primary Care Provider] - 1-2 days Time of Disposition: 08:45
--- NOTE | 2021-08-29 08:18 | US ---
EXAMINATION TYPE: US venous doppler duplex LE RT DATE OF EXAM: 08/29/2021 7:39 AM COMPARISON: US CLINICAL HISTORY: pain. Pain. Hx SVT in left leg. Patient takes baby aspirin. Patient had varicose vein surgery 2 weeks ago. SIDE PERFORMED: Right TECHNIQUE: The lower extremity deep venous system is examined utilizing real time linear array sonog yuli with graded compression, doppler sonography and color-flow sonography. VESSELS IMAGED: Common Femoral Vein Deep Femoral Vein Greater Saphenous Vein * Femoral Vein Popliteal Vein Small Saphenous Vein * Proximal Calf Veins (* superficial vessels) Right Leg: Internal echoes seen within the GSV at 0.17 cm from the CFV junction. GSV does not compre ss in the upper thigh/groin area and shows little to no color flow. Patient had varicose vein lase r surgery 2 weeks ago on this leg. No evidence of DVT at this time. Noncompressible superficial veins also seen at patient's lump within the right medial upper calf. Col or flow not visualized within. IMPRESSION: 1. No deep venous thrombosis right lower extremity. 2. Appears to be postablation changes within the superficial veins.
[2021-08-29 09:07] VITALS: BP 123/78; PULSE 82
== END 2021-08-29 09:07 | disposition home or self-care (01) ==
LOC: EC 06:47
DX: I80.9 Phlebitis and thrombophlebitis of unspecified site (principal); K21.9 Gastro-esophageal reflux disease without esophagitis; E07.9 Disorder of thyroid, unspecified; Z79.83 Long term (current) use of bisphosphonates; Z79.899 Other long term (current) drug therapy; I10 Essential (primary) hypertension; Z87.891 Personal history of nicotine dependence; Z88.2 Allergy status to sulfonamides; Z88.5 Allergy status to narcotic agent; Z88.1 Allergy status to other antibiotic agents

== ENCOUNTER 2022-01-02 09:28 | Day surgery (SDC) | payer OTHER ==
[2021-12-31 11:22] VITALS: BMI 29.8
[~2022-01-02 09:28] MED LIST changes: -DEXAMETHASONE SOD PHOSPHATE 4 MG/ML 1 ML VIAL IV ONE; -HYDROmorphone 0.5 MG/0.5 ML SYRINGE IVP PRN; +LIDOCAINE 1% (10MG/ML) FOR IV START INTRADERMA PRN; +ONDANSETRON 4 MG/2 ML VIAL IVP PRN
[2022-01-02 10:09] VITALS: TEMP 97.2
[2022-01-02] MEDS ORDERED: PROPOFOL 10 MG/ML 20 ML VIAL IV ONE (11:14)
[2022-01-02] MEDS ORDERED: LIDOCAINE 2% INJ 20 MG/ML (2 ML VIAL) ONE (11:14)
--- NOTE | 2022-01-02 11:26 | P.PCN ---
Date of Procedure: 01/02/22 Procedure(s) Performed: BRIEF HISTORY: Patient is a 61-year-old, pleasant, white female scheduled for an upper endoscopy as a part of evaluation long-standing history of GERD and Duggan's esophagus. Last EGD was 3 years ago she was noted to have short segment Duggan's esophagus.. PROCEDURE PERFORMED: Esophagogastroduodenoscopy with biopsy PREOPERATIVE DIAGNOSIS: GERD/Duggan's esophagus. IV sedation per anesthesia. PROCEDURE: After informed consent was obtained, the patient was brought into [facility] endoscopy unit. IV sedation was administered by Anesthesia under continuous monitoring. Initially the Olympus GIF-140 video endoscope was inserted into the mouth. Esophagus intubated without any difficulty. It was gradually advanced into the stomach and duodenum and carefully examined. The bulb and the second part of the duodenum appeared normal. The scope at this time was withdrawn to the stomach, adequately insufflated with air, and upon careful examination, mucosa of the antrum, body, cardia and the fundus appeared normal. The scope was then withdrawn into the esophagus. Mall hiatal hernia noted. The GE junction was located at 41 cm from the incisors. There was a short segment of Duggan's esophagus with the tongue of Duggan's mucosa extending 1 cm proximal to the GE junction which was biopsied. The rest of the esophagus appeared normal. There were no erosions or ulcerations seen and the patient tolerated the procedure well. IMPRESSION: 1. 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 2. Small hiatal hernia. RECOMMENDATIONS: The findings of this examination were discussed with the patient as well as her family. She was advised to follow with the biopsy results. If the biopsy revealed Duggan's esophagus with no dysplasia she can have a repeat EGD in 3 years. In the meantime she will continue with omeprazole 20 mg daily and follow antireflux measures..
[2022-01-02 11:31] VITALS: RESP 16
[2022-01-02 11:47] VITALS: BP 113/73; PULSE 55
== END 2022-01-02 11:59 | disposition home or self-care (01) ==
LOC: ORWHC2ENDO 09:28
PROVIDERS: ATTEND Internal Medicine Gastroenterology
DX: K22.70 Barrett's esophagus without dysplasia (principal); K21.9 Gastro-esophageal reflux disease without esophagitis; K44.9 Diaphragmatic hernia without obstruction or gangrene; Z98.890 Other specified postprocedural states
CPT/HCPCS: 43239; J2704; J2001; 88305

== ENCOUNTER 2022-03-06 18:06 | Emergency (ER) | payer OTHER ==
[2022-03-06 18:30] VITALS: TEMP 98.8
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
[2022-03-06 20:21] VITALS: BP 122/76; PULSE 72; RESP 16
== END 2022-03-06 20:20 | disposition home or self-care (01) ==
LOC: EC 18:06
DX: V89.2XXA Person injured in unspecified motor-vehicle accident, traffic, initial encounter (principal); K21.9 Gastro-esophageal reflux disease without esophagitis; I10 Essential (primary) hypertension; M19.90 Unspecified osteoarthritis, unspecified site; E07.9 Disorder of thyroid, unspecified; F41.9 Anxiety disorder, unspecified; F32.A Depression, unspecified; Z86.718 Personal history of other venous thrombosis and embolism; Z87.891 Personal history of nicotine dependence; Z79.890 Hormone replacement therapy; Z79.899 Other long term (current) drug therapy; Z79.82 Long term (current) use of aspirin; Z88.0 Allergy status to penicillin; Z88.1 Allergy status to other antibiotic agents
CPT/HCPCS: 99283

== ENCOUNTER 2022-05-27 10:20 | Day surgery (SDC) | payer OTHER ==
[~2022-05-27 10:20] MED LIST changes: -LIDOCAINE 1% (10MG/ML) FOR IV START INTRADERMA PRN; -ONDANSETRON 4 MG/2 ML VIAL IVP PRN
[2022-05-27 11:06] VITALS: TEMP 97.5
[2022-05-27 11:16] LABS: Glucose,Whole Blood 82 mg/dL (70-110)
[2022-05-27] MEDS ORDERED: LIDOCAINE 2% INJ 20 MG/ML (2 ML VIAL) ONE (12:19)
[2022-05-27] MEDS ORDERED: PROPOFOL 10 MG/ML 20 ML VIAL IV ONE (12:19)
--- NOTE | 2022-05-27 12:27 | P.PCN ---
Date of Procedure: 05/27/22 Procedure(s) Performed: BRIEF HISTORY: Patient is a 61-year-old, pleasant, female scheduled for an upper endoscopy as a part of surveillance of Duggan's esophagus. She has been complaining of intermittent dysphagia to solids.. PROCEDURE PERFORMED: Esophagogastroduodenoscopy with biopsy. PREOPERATIVE DIAGNOSIS: GERD/Duggan's esophagus/intermittent dysphagia to solids. IV sedation per anesthesia. PROCEDURE: After informed consent was obtained, the patient was brought into the endoscopy unit. IV sedation was administered by Anesthesia under continuous monitoring. Initially the Olympus GIF-140 video endoscope was inserted into the mouth. Esophagus intubated without any difficulty. It was gradually advanced into the stomach and duodenum and carefully examined. The bulb and the second part of the duodenum appeared normal. The scope at this time was withdrawn to the stomach, adequately insufflated with air, and upon careful examination, mucosa of the antrum, body, cardia and the fundus appeared normal. The scope was then withdrawn into the esophagus. Small hiatal hernia noted. The GE junction was located at 40 cm from the incisors. There was a short segment of Duggan's esophagus extending 3-4 mm proximal to the GE junction which was biopsied. The esophagus appeared normal. There were no erosions or ulcerations seen, no evidence of esophageal stricture and the patient tolerated the procedure well. IMPRESSION: 1. Small hiatal hernia. 2. Short segment Duggan's esophagus extending 3-4 mm proximal to the GE junction status post biopsy 3. No evidence of esophageal stricture RECOMMENDATIONS: The findings of this examination were discussed with the patient as well as a family.. She was advised to follow with the biopsy results. If the biopsy confirms the presence of Duggan's esophagus he can have a repeat upper endoscopy in 2 years. In the meantime she will continue with omeprazole 20 mg twice daily and follow antireflux measures.
[2022-05-27] MEDS ORDERED: ONDANSETRON 4 MG/2 ML VIAL ONE (12:43)
[2022-05-27] MEDS ORDERED: ONDANSETRON 4 MG/2 ML VIAL IVP ONE (12:45)
[2022-05-27 13:18] VITALS: BP 119/77; PULSE 53; RESP 16
== END 2022-05-27 13:33 | disposition home or self-care (01) ==
LOC: ORWHC2ENDO 10:20
PROVIDERS: ATTEND Internal Medicine Gastroenterology
DX: K21.9 Gastro-esophageal reflux disease without esophagitis (principal); K22.70 Barrett's esophagus without dysplasia; K44.9 Diaphragmatic hernia without obstruction or gangrene; I10 Essential (primary) hypertension; E03.9 Hypothyroidism, unspecified; F41.9 Anxiety disorder, unspecified; F32.A Depression, unspecified; Z98.890 Other specified postprocedural states; Z79.899 Other long term (current) drug therapy
CPT/HCPCS: 88305; 43239; J2405; J2704; J2001

== ENCOUNTER 2023-03-07 06:22 | Inpatient (IN) | payer OTHER ==
[2023-03-07] MEDS ORDERED: METOCLOPRAMIDE 5 MG/ML 2 ML VIAL IVP STA (06:47)
[2023-03-07 07:04] LABS: Basophils % (A) 0 %; Eosinophils # (A) 0.1 k/uL (0-0.7); Eosinophils % (A) 3 %; HCT 36.3 % (34.0-46.0); HGB 12.6 gm/dL (11.4-16.0); Lymphocytes # (A) 1.2 k/uL (1.0-4.8); Lymphocytes % (A) 27 %; MCH 29.6 pg (25.0-35.0); MCHC 34.6 g/dL (31.0-37.0); MCV 85.5 fL (80.0-100.0); Monocytes # (A) 0.2 k/uL (0-1.0); Monocytes % (A) 5 %; Neutrophils # (A) 2.8 k/uL (1.3-7.7); Neutrophils % (A) 64 %; Platelet Count 166 k/uL (150-450); RBC 4.25 m/uL (3.80-5.40); RDW 13.3 % (11.5-15.5); WBC 4.4 k/uL (3.8-10.6)
--- NOTE | 2023-03-07 07:25 | ED ---
Dizziness HPI - General Chief Complaint: Dizziness Stated Complaint: Nausea Vomiting Time Seen by Provider: 03/07/23 06:57 Source: patient, RN notes reviewed Mode of arrival: EMS Limitations: no limitations - History of Present Illness Initial Comments: 8-year-old female presents emergency Department chief complaint of dizziness, nausea vomiting. Patient states that she started having increasing dizziness, heart palpitations. Patient states she has some facial pain and headache that started on the way the hospital via EMS. She denies any tract injury denies fevers chills denies chest pain otherwise. She states feels like her heart is racing up and down states that she had problems with this in the past prior to her thyroid treatment. Patient has no history of A. fib - Related Data Home Medications Medication Instructions Recorded Confirmed Aspirin EC [Ecotrin Low Dose] 81 mg PO DAILY 01/09/20 05/22/22 Levothyroxine Sodium 112 mcg PO SUTUWEFRSA 04/22/20 05/22/22 Omeprazole 20 mg PO W/SUPPER 04/22/20 05/22/22 Levothyroxine Sodium [Synthroid] 100 mcg PO MOTH 05/22/22 05/22/22 Metoprolol Succinate (ER) [Toprol 25 mg PO 1100 05/22/22 05/22/22 Xl] Allergies Allergy/AdvReac Type Severity Reaction Status Date / Time Quinolones Allergy Severe Rash/Hives Verified 03/07/23 06:26 ciprofloxacin [From Cipro] Allergy Unknown Verified 03/07/23 06:26 Sulfa (Sulfonamide Allergy Rash/Hives/Vision Verified 03/07/23 06:26 Antibiotics) Disturbance Review of Systems ROS Statement: Those systems with pertinent positive or pertinent negative responses have been documented in the HPI. ROS Other: All systems not noted in ROS Statement are negative. 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 dysphagia recently, eczema like rash elbows & knees, itchy-sees derm., osteoporosis History of Any Multi-Drug Resistant Organisms: None Reported Past Surgical History: Adenoidectomy, Hysterectomy, Tonsillectomy, Tubal Ligation Additional Past Surgical History / Comment(s): Laser removal lesion lower jaw, EGDs, colonoscopy, cyst removed L hand, bilateral bunionectomies, bilateral feet hammer toe surgeries, varicose veins-BILAT LASER, CYSTOCELE Past Anesthesia/Blood Transfusion Reactions: Motion Sickness Additional Past Anesthesia/Blood Transfusion Reaction / Comment(s): brother slow to wake up Past Psychological History: Anxiety, Depression Smoking Status: Former smoker Past Alcohol Use History: None Reported Past Drug Use History: None Reported - Past Family History Mother Family Medical History: Cancer Additional Family Medical History / Comment(s): basal cell, lung, breast cancer Father Family Medical History: AFIB, Cancer Additional Family Medical History / Comment(s): basal cell, enlarged heart from mesothelioma General Exam Limitations: no limitations General appearance: alert, in no apparent distress Head exam: Present: atraumatic, normocephalic, normal inspection Eye exam: Present: normal appearance, PERRL, EOMI. Absent: scleral icterus, conjunctival injection, periorbital swelling ENT exam: Present: normal exam, normal oropharynx, mucous membranes moist Neck exam: Present: normal inspection, full ROM. Absent: tenderness, meningismus, lymphadenopathy Respiratory exam: Present: normal lung sounds bilaterally. Absent: respiratory distress, wheezes, rales, rhonchi, stridor Cardiovascular Exam: Present: tachycardia, irregular rhythm, normal heart sounds. Absent: regular rate, normal rhythm, systolic murmur, diastolic murmur, rubs, gallop, clicks GI/Abdominal exam: Present: soft, normal bowel sounds. Absent: distended, tenderness, guarding, rebound, rigid Neurological exam: Present: alert, oriented X3, CN II-XII intact, reflexes normal. Absent: motor sensory deficit Course Vital Signs 03/07/23 06:26 Temperature 98.1 F Pulse Rate 102 H Respiratory 16 Rate Blood Pressure 123/78 O2 Sat by Pulse 98 Oximetry EKG Findings - EKG Comments: EKG Findings:: EKG performed at 6:35 A. fib with a rate of 89 QRS 95 QT/QTC 370/471 - EKG Results: EKG: interpreted by MASTER Medical Decision Making - Medical Decision Making Was pt. sent in by a medical professional or institution (, PA, DIRECTOR FINANCIAL PLANNING, urgent care, hospital, or assisted...) When possible be specific @ -No Did you speak to anyone other than the patient for history (EMS, parent, family, police, friend...)? What history was obtained from this source @ -No Did you review nursing and triage notes (agree or disagree)? Why? @ -I reviewed and agree with nursing and triage notes Were old charts reviewed (outside hosp., previous admission, EMS record, old EKG, old radiological studies, urgent care reports/EKG's, assisted records)? Report findings @ -No old charts were reviewed Differential Diagnosis (chest pain, altered mental status, abdominal pain women, abdominal pain men, vaginal bleeding, weakness, fever, dyspnea, syncope, headache, dizziness, GI bleed, back pain, seizure, CVA, palpatations, mental health, musculoskeletal)? @ -[Differential Palpitations Ventricular arrhythmias, atrial arrhythmias, myocardial infarction, anemia, thyrotoxicosis, electrolyte imbalance, hypokalemia, pulmonary embolism, pulmonary disease, drugs, alcohol, anxiety, stress.... This is not meant to be an all-inclusive list. EKG interpreted by me (3pts min.). @ -As above X-rays interpreted by me (1pt min.). @ -None CT interpreted by me (1pt min.). @ -None done U/S interpreted by me (1pt. min.). @ -None done What testing was considered but not performed or refused? (CT, X-rays, U/S, labs)? Why? @ -None What meds were considered but not given or refused? Why? @ -None Did you discuss the management of the patient with other professionals (pr ofessionals i.e. , MARK ANTHONY, DIRECTOR FINANCIAL PLANNING, lab, RT, psych nurse, social media designer, area director of home health sales, teacher, corporate officer, bilingual patient support caseworker)? Give summary @ -Dr. Metzger for admission secondary to new-onset A. fib, lightheadedness Was smoking cessation discussed for >3mins.? @ -No Was critical care preformed (if so, how long)? @ -35 mins Were there social determinants of health that impacted care today? How? (Prashanth elessness, low income, unemployed, alcoholism, drug addiction, transportation, low edu. Level, literacy, decrease access to med. care, alf, rehab)? @ -No Was there de-escalation of care discussed even if they declined (Discuss DNR or withdrawal of care, Hospice)? DNR status @ -No What co-morbidities impacted this encounter? (DM, HTN, Smoking, COPD, CAD, Cancer, CVA, ARF, Chemo, Hep., AIDS, mental health diagnosis, sleep apnea, morbid obesity)? @ -Hyperthyroidism Was patient admitted / discharged? Hospital course, mention meds given and route, prescriptions, significant lab abnormalities, going to OR and other pertinent info. @ -Admitted for new onset atrial fibrillation. Patient was started on heparin. Patient's heart rate between 80 and 100 patient was not given any IV Cardizem or metoprolol at this time. She'll be admitted for cardiology evaluation, echocardiogram. Undiagnosed new problem with uncertain prognosis? @ -No Drug Therapy requiring intensive monitoring for toxicity (Heparin, Nitro, Insulin, Cardizem)? @ -heparin Were any procedures done? @ -No Diagnosis/symptom? @ -New-onset A. fib, lightheadedness Acute, or Chronic, or Acute on Chronic? @ -Acute Uncomplicated (without systemic symptoms) or Complicated (systemic symptoms)? @ -[complicated Side effects of treatment? @ -No Exacerbation, Progression, or Severe Exacerbation? @ -No Poses a threat to life or bodily function? How? (Chest pain, USA, MS, pneumonia, PE, COPD, DKA, ARF, appy, cholecystitis, CVA, Diverticulitis, Homicidal, Suicidal, threat to staff... and all critical care pts) @ -yes arrhythmia - Lab Data Result diagrams: 03/07/23 06:35 03/07/23 06:35 Lab Results 03/07/23 03/07/23 03/07/23 Range/Units 06:35 06:35 06:35 WBC 4.4 (3.8-10.6) k/uL RBC 4.25 (3.80-5.40) m/uL Hgb 12.6 (11.4-16.0) gm/dL Hct 36.3 (34.0-46.0) % MCV 85.5 (80.0-100.0) fL MCH 29.6 (25.0-35.0) pg MCHC 34.6 (31.0-37.0) g/dL RDW 13.3 (11.5-15.5) % Plt Count 166 (150-450) k/uL MPV 8.0 Neutrophils % 64 % Lymphocytes % 27 % Monocytes % 5 % Eosinophils % 3 % Basophils % 0 % Neutrophils # 2.8 (1.3-7.7) k/uL Lymphocytes # 1.2 (1.0-4.8) k/uL Monocytes # 0.2 (0-1.0) k/uL Eosinophils # 0.1 (0-0.7) k/uL Basophils # 0.0 (0-0.2) k/uL PT (10.0-12.5) sec INR (<1.2) APTT (22.0-30.0) sec Sodium 140 (137-145) mmol/L Potassium 3.2 L (3.5-5.1) mmol/L Chloride 106 (98-107) mmol/L Carbon Dioxide 21 L (22-30) mmol/L Anion Gap 13 mmol/L BUN 16 (7-17) mg/dL Creatinine 0.57 (0.52-1.04) mg/dL Est GFR (CKD-EPI)AfAm >90 (>60 ml/min/1.73 sqM) Est GFR (CKD-EPI)NonAf >90 (>60 ml/min/1.73 sqM) Glucose 119 H (74-99) mg/dL Calcium 9.2 (8.4-10.2) mg/dL Magnesium (1.6-2.3) mg/dL Total Bilirubin 0.4 (0.2-1.3) mg/dL AST 22 (14-36) U/L ALT 17 (4-34) U/L Alkaline Phosphatase 71 (38-126) U/L Troponin I <0.012 (0.000-0.034) ng/mL Total Protein 6.4 (6.3-8.2) g/dL Albumin 3.8 (3.5-5.0) g/dL Urine Color Urine Appearance (Clear) Urine pH (5.0-8.0) Ur Specific [place] (1.001-1.035) Urine Protein (Negative) Urine Glucose (UA) (Negative) Urine Ketones (Negative) Urine Blood (Negative) Urine Nitrite (Negative) Urine Bilirubin (Negative) Urine Urobilinogen (<2.0) mg/dL Ur Leukocyte Esterase (Negative) 03/07/23 03/07/23 03/07/23 Range/Units 10:26 10:26 10:26 WBC (3.8-10.6) k/uL RBC (3.80-5.40) m/uL Hgb (11.4-16.0) gm/dL Hct (34.0-46.0) % MCV (80.0-100.0) fL MCH (25.0-35.0) pg MCHC (31.0-37.0) g/dL RDW (11.5-15.5) % Plt Count (150-450) k/uL MPV Neutrophils % % Lymphocytes % % Monocytes % % Eosinophils % % Basophils % % Neutrophils # (1.3-7.7) k/uL Lymphocytes # (1.0-4.8) k/uL Monocytes # (0-1.0) k/uL Eosinophils # (0-0.7) k/uL Basophils # (0-0.2) k/uL PT 9.6 L (10.0-12.5) sec INR 0.8 (<1.2) APTT 19.3 L (22.0-30.0) sec Sodium (137-145) mmol/L Potassium (3.5-5.1) mmol/L Chloride (98-107) mmol/L Carbon Dioxide (22-30) mmol/L Anion Gap mmol/L BUN (7-17) mg/dL Creatinine (0.52-1.04) mg/dL Est GFR (CKD-EPI)AfAm (>60 ml/min/1.73 sqM) Est GFR (CKD-EPI)NonAf (>60 ml/min/1.73 sqM) Glucose (74-99) mg/dL Calcium (8.4-10.2) mg/dL Magnesium 1.9 (1.6-2.3) mg/dL Total Bilirubin (0.2-1.3) mg/dL AST (14-36) U/L ALT (4-34) U/L Alkaline Phosphatase (38-126) U/L Troponin I (0.000-0.034) ng/mL Total Protein (6.3-8.2) g/dL Albumin (3.5-5.0) g/dL Urine Color Colorless Urine Appearance Clear (Clear) Urine pH 6.0 (5.0-8.0) Ur Specific [place] 1.008 (1.001-1.035) Urine Protein Negative (Negative) Urine Glucose (UA) Negative (Negative) Urine Ketones Negative (Negative) Urine Blood Negative (Negative) Urine Nitrite Negative (Negative) Urine Bilirubin Negative (Negative) Urine Urobilinogen <2.0 (<2.0) mg/dL Ur Leukocyte Esterase Negative (Negative) Critical Care Time Critical Care Time: Yes Total Critical Care Time: 35 Disposition Clinical Impression: New onset atrial fibrillation, Nausea & vomiting, Dizziness Disposition: ADMITTED IP TO THIS HOSP Referrals: None,Stated [REFERRING] - 1-2 days Time of Disposition: 08:41
[2023-03-07 07:30] LABS: ALT 17 U/L (4-34); AST 22 U/L (14-36); African American GFR (CKD) >90 (>60 ml/min/1.73 sqM); Albumin 3.8 g/dL (3.5-5.0); Alkaline Phosphatase 71 U/L (38-126); Anion Gap 13 mmol/L; Blood Urea Nitrogen 16 mg/dL (7-17); Calcium 9.2 mg/dL (8.4-10.2); Carbon Dioxide 21 mmol/L (22-30); Chloride 106 mmol/L (98-107); Glucose 119 mg/dL (74-99); Non-African American GFR(CKD) >90 (>60 ml/min/1.73 sqM); Potassium 3.2 mmol/L (3.5-5.1); Sodium 140 mmol/L (137-145); Total Bilirubin 0.4 mg/dL (0.2-1.3); Total Protein 6.4 g/dL (6.3-8.2)
--- NOTE | 2023-03-07 07:34 | CT ---
EXAMINATION TYPE: CT brain wo con DATE OF EXAM: 03/07/2023 COMPARISON: 11/10/2017 HISTORY: 62-year-old female with dizziness and headache TECHNIQUE: Examination was done in axial plane without intravenous contrast. Coronal and sagittal r econstructions performed. CT DLP: 1183.4 mGycm Automated exposure control for dose reduction was used. FINDINGS: There is no evidence of acute intracranial hemorrhage, acute ischemic changes, mass, mass-effect, or extra-axial fluid collection. There is no effacement of cerebral sulci or basal subarachnoid cister ns. There is no hydrocephalus. There is no midline shift. Brown-white matter distinction is preserv ed. Focal periventricular white matter hypodensity adjacent to the frontal horn of jenn left lateral vent ricle remains unchanged from 2018 suggesting chronic small vessel ischemic change. Normal variation p ersistent CSP. Slight rightward nasal septal deviation. Trace mucosal thickening ethmoid air cells. Mastoid air cell s well pneumatized. IMPRESSION: No acute intracranial abnormality seen. Mild burden of chronic small vessel ischemic disease.
[2023-03-07] MEDS ORDERED: POTASSIUM CHLORIDE ER 20 MEQ TAB.ER PO STA (07:39)
[2023-03-07] MEDS ORDERED: ONDANSETRON 4 MG/2 ML VIAL IVP PRN (09:27)
[2023-03-07] MEDS ORDERED: NALOXONE 0.4 MG/ML 1 ML VIAL IV PRN (09:27)
[2023-03-07] MEDS ORDERED: NITROGLYCERIN SL TABS 0.4 MG TAB SUBLINGUAL PRN (09:28)
[2023-03-07] MEDS ORDERED: ASPIRIN 81 MG PO STA (09:28)
[2023-03-07 10:31] LABS: Appearance,Urine Clear (Clear); Bilirubin,Urine Negative (Negative); Blood,Urine Negative (Negative); Color,Urine Colorless; Glucose,Urine (UA) Negative (Negative); Ketones,Urine Negative (Negative); Leukocyte Esterase,Urine Negative (Negative); Nitrite,Urine Negative (Negative); Protein,Urine Negative (Negative); Specific Gravity,Urine 1.008 (1.001-1.035); Urobilinogen,Urine <2.0 mg/dL (<2.0)
[2023-03-07] MEDS: SODIUM CHLORIDE 0.9% 1,000 ML IV SCH ×2 (10:52→23:21)
[2023-03-07 11:15] LABS: INR 0.8 (<1.2); Prothrombin Time 9.6 sec (10.0-12.5)
[2023-03-07 11:21] LABS: Partial Thromboplastin Time 19.3 sec (22.0-30.0)
[2023-03-07] MEDS ORDERED: ACETAMINOPHEN TAB 325 MG TAB PO STA (12:26)
[2023-03-07] MEDS ORDERED: PANTOPRAZOLE 40 MG TABLET PO PRN (15:19)
--- NOTE | 2023-03-07 15:22 | P.HPIM ---
History of Present Illness H&P Date: 03/07/23 History of present illness; patient is 62-year-old lady with past medical histor y significant for hypothyroidism, GERD who presented to the ER because of complaint of dizziness. Patient stated that she was all right this morning when she woke up and was having dizziness. Patient stated that she felt as if her eyes were bobbing. Patient also felt as if his heart fluttering. Denies any chest pain.No complaint of shortness of breath. Patient denied any orthopnea or PND. There was no complain of swelling of feet. Patient also experienced nausea and vomiting at that time. Because of these symptoms, patient came to the ER Initial lab work done in the ER showed WBC 4.4, hemoglobin 12.6, platelet count 166, sodium 140, potassium 3.2 BUN 16, creatinine 0.57 troponin 0.012 UA negative for infection EKG done in the ER showed heart rate of 88, irregular in rhythm, no ST segment elevation or depression seen, no T-wave inversions seen. CT head done showed no acute intracranial process Patient admitted to internal medicine service REVIEW OF SYSTEMS: CONSTITUTIONAL: As mentioned in HPI HEENT: No recent visual problems or hearing problems. Denied any sore throat. CARDIOVASCULAR: As mentioned in HPI PULMONARY: As mentioned in HPI GASTROINTESTINAL: No diarrhea, no nausea, no vomiting, no abdominal pain. NEUROLOGICAL: No headaches, no weakness, no numbness. HEMATOLOGICAL: Denies any bleeding or petechiae. GENITOURINARY: Denies any burning micturition, frequency, or urgency. MUSCULOSKELETAL/RHEUMATOLOGICAL: Denies any joint pain, swelling, or any muscle pain. ENDOCRINE: Denies any polyuria or polydipsia. The rest of the 14-point review of systems is negative. PHYSICAL EXAMINATION: GENERAL: The patient is alert and oriented x3, not in any acute distress. Well developed, well nourished. HEENT: Pupils are round and equally reacting to light. EOMI. No scleral icterus. No conjunctival pallor. Normocephalic, atraumatic. No pharyngeal erythema. No t hyromegaly. CARDIOVASCULAR: S1 and S2 present. No murmurs, rubs, or gallops. PULMONARY: Chest is clear to auscultation, no wheezing or crackles. ABDOMEN: Soft, nontender, nondistended, normoactive bowel sounds. No palpable organomegaly. MUSCULOSKELETAL: No joint swelling or deformity. EXTREMITIES: No cyanosis, clubbing, or pedal edema. NEUROLOGICAL: Gross neurological examination did not reveal any focal deficits. SKIN: No rashes. Assessment and plan Paroxysmal A. fib Hypokalemia Dizziness Hypothyroidism GERD Monitor vital signs Monitor CBC Monitor CMP Continue telemetry monitoring Trend troponins. Ordered d-dimer Ordered 2-D echo Resume home meds Consult cardiology Labs and medication were reviewed.. Continue same treatment. Continue with symptomatic treatment. Resume home medication. Monitor labs and vitals. DVT and GI prophylaxis. Further recommendations as per clinical course of the patient Dictation was produced using [employer] dictation software. please excuse any grammatical, word or spelling errors. 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 dysphagia recently, eczema like rash elbows & knees, itchy-sees derm., osteoporosis History of Any Multi-Drug Resistant Organisms: None Reported Past Surgical History: Adenoidectomy, Hysterectomy, Tonsillectomy, Tubal Ligation Additional Past Surgical History / Comment(s): Laser removal lesion lower jaw, EGDs, colonoscopy, cyst removed L hand, bilateral bunionectomies, bilateral feet hammer toe surgeries, varicose veins-BILAT LASER, CYSTOCELE Past Anesthesia/Blood Transfusion Reactions: Motion Sickness Additional Past Anesthesia/Blood Transfusion Reaction / Comment(s): brother slow to wake up Past Psychological History: Anxiety, Depression Smoking Status: Former smoker Past Alcohol Use History: None Reported Past Drug Use History: None Reported - Past Family History Mother Family Medical History: Cancer Additional Family Medical History / Comment(s): basal cell, lung, breast cancer Father Family Medical History: AFIB, Cancer Additional Family Medical History / Comment(s): basal cell, enlarged heart from mesothelioma Medications and Allergies Home Medications Medication Instructions Recorded Confirmed Type Aspirin EC [Ecotrin Low Dose] 81 mg PO HS@1800 01/09/20 03/07/23 History Levothyroxine Sodium 112 mcg PO MOWEFR 04/22/20 03/07/23 History Levothyroxine Sodium [Synthroid] 100 mcg PO SUTUTHSA 05/22/22 03/07/23 History Metoprolol Succinate (ER) [Toprol 25 mg PO HS@1800 05/22/22 03/07/23 History Xl] Omeprazole 20 mg PO DAILY PRN 03/07/23 03/07/23 History Omeprazole 20 mg PO DAILY@1200 03/07/23 03/07/23 History Allergies Allergy/AdvReac Type Severity Reaction Status Date / Time Quinolones Allergy Severe Rash/Hives Verified 03/07/23 14:27 ciprofloxacin [From Cipro] Allergy Unknown Verified 03/07/23 14:27 Sulfa (Sulfonamide Allergy Rash/Hives/Vision Verified 03/07/23 14:27 Antibiotics) Disturbance Physical Exam Vitals: Vital Signs Temp Pulse Resp BP Pulse Ox 03/07/23 06:26 98.1 F 102 H 16 123/78 98 Intake and Output 03/07/23 03/07/23 03/07/23 06:59 14:59 22:59 Other: Weight 83.915 kg Results CBC & Chem 7: 03/07/23 06:35 03/07/23 06:35 Labs: Abnormal Lab Results - Last 24 Hours (Table) 03/07/23 03/07/23 Range/Units 06:35 10:26 PT 9.6 L (10.0-12.5) sec APTT 19.3 L (22.0-30.0) sec Potassium 3.2 L (3.5-5.1) mmol/L Carbon Dioxide 21 L (22-30) mmol/L Glucose 119 H (74-99) mg/dL
[2023-03-07] MEDS ORDERED: ASPIRIN 81 MG PO SCH (18:00)
[2023-03-07] MEDS: LEVOTHYROXINE 100 MCG TAB PO SCH (18:22)
[2023-03-07] MEDS: METOPROLOL SUCCINATE (ER) 25 MG TAB.ER.24H PO SCH (19:00)
[2023-03-07] MEDS: ACETAMINOPHEN TAB 325 MG TAB PO PRN (21:37)
[2023-03-08] MEDS ORDERED: LEVOTHYROXINE 112 MCG TAB PO SCH (06:30)
[2023-03-08] MEDS ORDERED: LEVOTHYROXINE 100 MCG TAB PO SCH (06:30)
[2023-03-08 07:51] LABS: Basophils % (A) 1 %; Eosinophils # (A) 0.1 k/uL (0-0.7); Eosinophils % (A) 4 %; HCT 37.8 % (34.0-46.0); HGB 12.1 gm/dL (11.4-16.0); Lymphocytes # (A) 1.1 k/uL (1.0-4.8); Lymphocytes % (A) 35 %; MCH 28.5 pg (25.0-35.0); MCHC 32.1 g/dL (31.0-37.0); MCV 88.7 fL (80.0-100.0); Mean Platelet Volume 7.5; Monocytes # (A) 0.2 k/uL (0-1.0); Monocytes % (A) 5 %; Neutrophils # (A) 1.7 k/uL (1.3-7.7); Neutrophils % (A) 54 %; Platelet Count 188 k/uL (150-450); RBC 4.26 m/uL (3.80-5.40); RDW 13.6 % (11.5-15.5); WBC 3.2 k/uL (3.8-10.6)
[2023-03-08 08:04] LABS: Potassium 4.5 mmol/L (3.5-5.1)
[2023-03-08 08:05] LABS: ALT 16 U/L (4-34); AST 20 U/L (14-36); African American GFR (CKD) >90 (>60 ml/min/1.73 sqM); Albumin 3.6 g/dL (3.5-5.0); Alkaline Phosphatase 60 U/L (38-126); Anion Gap 8 mmol/L; Blood Urea Nitrogen 12 mg/dL (7-17); Calcium 9.2 mg/dL (8.4-10.2); Carbon Dioxide 26 mmol/L (22-30); Chloride 106 mmol/L (98-107); Glucose 101 mg/dL (74-99); Non-African American GFR(CKD) >90 (>60 ml/min/1.73 sqM); Sodium 140 mmol/L (137-145); Total Bilirubin 0.8 mg/dL (0.2-1.3); Total Protein 6.1 g/dL (6.3-8.2)
[2023-03-08] MEDS ORDERED: HEPARIN SODIUM 1,000 UN/ML (10ML VL) IV PRN (08:30)
[2023-03-08] MEDS ORDERED: ASPIRIN 325 MG TAB PO SCH (09:00)
[2023-03-08 09:41] LABS: INR 0.9 (<1.2); Prothrombin Time 10.1 sec (10.0-12.5)
[2023-03-08] MEDS: HEPARIN SOD,PORK IN 0.45% NACL 25,000 UNIT in 0.45% NACL 1 250ML.BAG IV SCH (09:46)
[2023-03-08 09:49] LABS: Basophils % (A) 0 %; Eosinophils # (A) 0.1 k/uL (0-0.7); Eosinophils % (A) 2 %; HGB 12.2 gm/dL (11.4-16.0); Lymphocytes # (A) 0.9 k/uL (1.0-4.8); Lymphocytes % (A) 29 %; MCH 29.1 pg (25.0-35.0); MCHC 32.9 g/dL (31.0-37.0); MCV 88.3 fL (80.0-100.0); Mean Platelet Volume 8.2; Monocytes # (A) 0.2 k/uL (0-1.0); Monocytes % (A) 5 %; Neutrophils # (A) 1.9 k/uL (1.3-7.7); Neutrophils % (A) 62 %; Platelet Count 153 k/uL (150-450); RBC 4.19 m/uL (3.80-5.40); RDW 13.8 % (11.5-15.5); WBC 3.1 k/uL (3.8-10.6)
--- NOTE | 2023-03-08 11:28 | P.CRDCN ---
History of Present Illness History of present illness: HISTORY OF PRESENT ILLNESS: This is a 62-year-old female with a past medical history significant for SVT and hypothyroidism. Patient follows in the office with Dr. Huang. We have been asked to see the patient in consultation for new-onset atrial fibrillation. Patient examined at the bedside in the emergency room. Patient states that she woke up yesterday and while walking to the bathroom began to feel dizzy and nauseated. She states after using the bathroom she began to have palpitations which prompted her to come to the emergency room for further evaluation. The patient was found to be in A. fib with mild RVR. She denies a history of atrial fibrillation. At the time of examination she is maintaining sinus mechanism with a heart rate in the 70s. She currently denies chest pain or pressure. She denies shortness of breath. She denies any palpitations. She remains on IV heparin. * EKG reveals atrial fibrillation with controlled ventricular rate * CT of the brain: Negative for acute intracranial abnormality * Laboratory data: Troponin negative 3. TSH 0.809. * Current home cardiac medications include metoprolol succinate 25 mg at night and aspirin 81 mg at night * Most recent echocardiogram in April 2020 revealing ejection fraction 55- 60%, mild AR, trace MR, trace TR * She underwent stress echocardiogram in April 2020 which was negative for ischemia REVIEW OF SYSTEMS: At the time of my exam: CONSTITUTIONAL: Denies fever or chills. HEENT: Denies blurred vision, vision changes, or eye pain. Denies hemoptysis CARDIOVASCULAR: Denies chest pain. Denies orthopnea. Denies PND. Denies palpitations RESPIRATORY: Denies shortness of breath. GASTROINTESTINAL: Denies abdominal pain. Denies nausea or vomiting. HEMATOLOGIC: Denies bleeding disorders. GENITOURINARY: Denies any blood in urine. SKIN: Denies pruitis. Denies rash. PHYSICAL EXAM: VITAL SIGNS: Reviewed. GENERAL: Well-developed in no acute distress. HEENT: Head is normocephalic. Pupils are equal, round. Sclerae anicteric. Mucous membranes of the mouth are moist. Neck supple. No JVD or thyromegaly LUNGS: Respirations even and unlabored. Lungs essentially clear to auscultation bilaterally. HEART: Regular rate and rhythm. S1 and S2 heard. ABDOMEN: Soft. Nondistended. Nontender. EXTREMITIES: Normal range of motion. No clubbing or cyanosis. Peripheral pulses intact. No lower extremity edema NEUROLOGIC: Awake and alert. Oriented x 3. ASSESSMENT: Palpitations New-onset paroxysmal atrial fibrillation with mild RVR, currently maintaining sinus mechanism History of SVT Hypothyroidism PLAN: Continue current dose of metoprolol Continue telemetry monitoring TSH checked and within normal limits Obtain 2-D echo to assess cardiac structure and function Continue IV heparin pending echo results. CHADVASC score of 1. Further recommendations pending patient's course Nurse practitioner note has been reviewed by physician. Signing provider agrees with the documented findings, assessment, and plan of care. 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 dysphagia recently, eczema like rash elbows & knees, itchy-sees derm., osteoporosis History of Any Multi-Drug Resistant Organisms: None Reported Past Surgical History: Adenoidectomy, Hysterectomy, Tonsillectomy, Tubal Ligation Additional Past Surgical History / Comment(s): Laser removal lesion lower jaw, EGDs, colonoscopy, cyst removed L hand, bilateral bunionectomies, bilateral feet hammer toe surgeries, varicose veins-BILAT LASER, CYSTOCELE Past Anesthesia/Blood Transfusion Reactions: Motion Sickness Additional Past Anesthesia/Blood Transfusion Reaction / Comment(s): brother slow to wake up Past Psychological History: Anxiety, Depression Smoking Status: Former smoker Past Alcohol Use History: None Reported Past Drug Use History: None Reported - Past Family History Mother Family Medical History: Cancer Additional Family Medical History / Comment(s): basal cell, lung, breast cancer Father Family Medical History: AFIB, Cancer Additional Family Medical History / Comment(s): basal cell, enlarged heart from mesothelioma Medications and Allergies Home Medications Medication Instructions Recorded Confirmed Type Aspirin EC [Ecotrin Low Dose] 81 mg PO HS@1800 01/09/20 03/07/23 History Levothyroxine Sodium 112 mcg PO MOWEFR 04/22/20 03/07/23 History Levothyroxine Sodium [Synthroid] 100 mcg PO SUTUTHSA 05/22/22 03/07/23 History Metoprolol Succinate (ER) [Toprol 25 mg PO HS@1800 05/22/22 03/07/23 History Xl] Omeprazole 20 mg PO DAILY PRN 03/07/23 03/07/23 History Omeprazole 20 mg PO DAILY@1200 03/07/23 03/07/23 History Allergies Allergy/AdvReac Type Severity Reaction Status Date / Time Quinolones Allergy Severe Rash/Hives Verified 03/07/23 14:27 ciprofloxacin [From Cipro] Allergy Unknown Verified 03/07/23 14:27 Sulfa (Sulfonamide Allergy Rash/Hives/Vision Verified 03/07/23 14:27 Antibiotics) Disturbance Physical Exam Vitals: Vital Signs Temp Pulse Pulse Resp BP BP Pulse Ox 03/08/23 07:45 98 F 76 24 107/76 100 03/08/23 06:31 98.5 F 60 16 111/71 97 03/08/23 02:00 97.9 F 72 18 120/74 96 03/07/23 21:25 70 18 138/82 98 03/07/23 19:02 98.1 F 72 18 107/66 97 Results 03/08/23 08:51 03/08/23 07:22 Cardiac Enzymes 03/07/23 03/07/23 03/07/23 Range/Units 13:13 15:28 18:49 AST (14-36) U/L Troponin I <0.012 <0.012 <0.012 (0.000-0.034) ng/mL 03/08/23 Range/Units 07:22 AST 20 (14-36) U/L Troponin I (0.000-0.034) ng/mL Coagulation 03/07/23 03/08/23 Range/Units 10:26 08:51 PT 9.6 L 10.1 (10.0-12.5) sec APTT 19.3 L 23.0 (22.0-30.0) sec CBC 03/08/23 03/08/23 Range/Units 07:22 08:51 WBC 3.2 L 3.1 L (3.8-10.6) k/uL RBC 4.26 4.19 (3.80-5.40) m/uL Hgb 12.1 12.2 (11.4-16.0) gm/dL Hct 37.8 37.0 (34.0-46.0) % Plt Count 188 153 (150-450) k/uL Comprehensive Metabolic Panel 03/08/23 Range/Units 07:22 Sodium 140 (137-145) mmol/L Potassium 4.5 (3.5-5.1) mmol/L Chloride 106 (98-107) mmol/L Carbon Dioxide 26 (22-30) mmol/L BUN 12 (7-17) mg/dL Creatinine 0.68 (0.52-1.04) mg/dL Glucose 101 H (74-99) mg/dL Calcium 9.2 (8.4-10.2) mg/dL AST 20 (14-36) U/L ALT 16 (4-34) U/L Alkaline Phosphatase 60 (38-126) U/L Total Protein 6.1 L (6.3-8.2) g/dL Albumin 3.6 (3.5-5.0) g/dL Current Medications Generic Name Dose Route Start Last Admin Trade Name Freq PRN Reason Stop Dose Admin Acetaminophen 650 mg 03/07/23 09:27 03/07/23 21:37 Acetaminophen Tab 325 Mg Tab PO 650 mg Q6HR PRN Administration Mild Pain or Fever > 100.5 Heparin Sodium (Porcine) 0 unit 03/08/23 08:30 Heparin Sodium 1,000 Un/Ml (10ml Vl) IV PER PROTOCOL PRN Low PTT Protocol Sodium Chloride 1,000 mls @ 75 mls/hr 03/07/23 09:30 03/07/23 23:21 Saline 0.9% IV Not Given .[id number] [facility] Heparin Sodium/Sodium Chloride 250 mls @ 10 mls/hr 03/08/23 08:30 03/08/23 09:46 25,000 unit/ Sodium Chloride IV 11.917 units/kg/hr .Q24H SABIHA 10 mls/hr Administration Protocol 11.917 UNITS/KG/HR Levothyroxine Sodium 100 mcg 03/07/23 15:30 03/07/23 18:22 Levothyroxine 100 Mcg Tab PO Not Given [id number] [facility] Levothyroxine Sodium 112 mcg 03/08/23 06:30 03/08/23 06:31 Levothyroxine 112 Mcg Tab PO 112 mcg [id number] [facility] Administration Metoprolol Succinate 25 mg 03/07/23 18:00 03/07/23 19:00 Metoprolol Succinate (Er) 25 Mg Tab.Er.24h PO 25 mg HS@1800 [facility] Administration Naloxone HCl 0.2 mg 03/07/23 09:27 Naloxone 0.4 Mg/Ml 1 Ml Vial IV Q2M PRN Opioid Reversal Nitroglycerin 0.4 mg 03/07/23 09:28 Nitroglycerin Sl Tabs 0.4 Mg Tab SUBLINGUAL Q5M PRN Chest Pain Ondansetron HCl 4 mg 03/07/23 09:27 Ondansetron 4 Mg/2 Ml Vial IVP Q8HR PRN Nausea And Vomiting Pantoprazole Sodium 40 mg 03/07/23 15:19 Pantoprazole 40 Mg Tablet PO DAILY PRN Heartburn Pantoprazole Sodium 40 mg 03/08/23 12:00 Pantoprazole 40 Mg Tablet PO DAILY@1200 [facility] 03/08/23 08:51 03/08/23 07:22
[2023-03-08] MEDS: PANTOPRAZOLE 40 MG TABLET PO SCH (12:00)
[2023-03-08] MEDS: SODIUM CHLORIDE 0.9% 1,000 ML IV SCH (12:00)
[2023-03-08 15:12] LABS: Chol/HDL Ratio 3.75 Ratio; LDL Cholesterol,Calculated 146.7 mg/dL (0.0-131.0); VLDL Calculation 17.64 mg/dL (5.00-40.00)
[2023-03-08] MEDS: METOPROLOL SUCCINATE (ER) 25 MG TAB.ER.24H PO SCH (17:43)
[2023-03-08] MEDS: ACETAMINOPHEN TAB 325 MG TAB PO PRN (17:43)
--- NOTE | 2023-03-08 19:08 | P.PN ---
Subjective History of present illness; patient is 62-year-old lady with past medical history significant for hypothyroidism, GERD who presented to the ER because of complaint of dizziness. Patient stated that she was all right this morning when she woke up and was having dizziness. Patient stated that she felt as if her eyes were bobbing. Patient also felt as if his heart fluttering. Denies any chest pain.No complaint of shortness of breath. Patient denied any orthopnea or PND. There was no complain of swelling of feet. Patient also experienced nausea and vomiting at that time. Because of these symptoms, patient came to the ER Initial lab work done in the ER showed WBC 4.4, hemoglobin 12.6, platelet count 166, sodium 140, potassium 3.2 BUN 16, creatinine 0.57 troponin 0.012 UA negative for infection EKG done in the ER showed heart rate of 88, irregular in rhythm, no ST segment elevation or depression seen, no T-wave inversions seen. CT head done showed no acute intracranial process Patient admitted to internal medicine service 03/08/2023 Patient admitted with new onset atrial fibrillation Her palpitation, dizziness, nausea vomiting are resolved No new symptoms Patient's heart rate controlled on metoprolol She is on aspirin 325 mg Cardiology on the case and echocardiogram is pending D-dimer is -0.39. TSH normal 0.8. Possible discharge for a cover she keeps improving Objective - Vital Signs Vital signs: Vital Signs Temp 97.8 F 03/08/23 12:02 Pulse 64 03/08/23 12:02 Resp 22 03/08/23 12:02 BP 116/80 03/08/23 12:02 Pulse Ox 99 03/08/23 12:02 FiO2 Intake & Output 03/07/23 03/08/23 03/08/23 18:59 06:59 18:59 Other: # Voids 2 - Exam GENERAL: The patient is alert and oriented x3, not in any acute distress. Well developed, well nourished. HEENT: Pupils are round and equally reacting to light. EOMI. No scleral icterus. No conjunctival pallor. Normocephalic, atraumatic. No pharyngeal erythema. No thyromegaly. CARDIOVASCULAR: S1 and S2 present. No murmurs, rubs, or gallops. PULMONARY: Chest is clear to auscultation, no wheezing , no crackles. ABDOMEN: Soft, nontender, nondistended, normoactive bowel sounds. No palpable o rganomegaly. MUSCULOSKELETAL: No joint swelling or deformity. EXTREMITIES: No cyanosis, clubbing, or pedal edema. NEUROLOGICAL: Gross neurological examination did not reveal any focal deficits. SKIN: No rashes. no petechiae. - Labs CBC & Chem 7: 03/08/23 08:51 03/08/23 07:22 Labs: Abnormal Lab Results - Last 24 Hours (Table) 03/08/23 03/08/23 03/08/23 Range/Units 07:22 07:22 08:51 WBC 3.2 L 3.1 L (3.8-10.6) k/uL Lymphocytes # 0.9 L (1.0-4.8) k/uL Glucose 101 H (74-99) mg/dL Total Protein 6.1 L (6.3-8.2) g/dL Assessment and Plan Assessment: Paroxysmal A. fib, new onset Hypokalemia Dizziness, improved Hypothyroidism GERD Plan: Continue with metoprolol Continue with aspirin Follow-up echocardiogram Cardiology consult GI and DVT prophylaxis Prognosis is guarded
[2023-03-09] MEDS: SODIUM CHLORIDE 0.9% 1,000 ML IV SCH (01:16)
[2023-03-09] MEDS: LEVOTHYROXINE 100 MCG TAB PO SCH (05:12)
[2023-03-09 07:04] LABS: Basophils % (A) 1 %; Eosinophils # (A) 0.1 k/uL (0-0.7); Eosinophils % (A) 4 %; HGB 11.8 gm/dL (11.4-16.0); Lymphocytes # (A) 1.1 k/uL (1.0-4.8); Lymphocytes % (A) 40 %; MCH 28.9 pg (25.0-35.0); MCHC 32.9 g/dL (31.0-37.0); MCV 87.7 fL (80.0-100.0); Mean Platelet Volume 7.6; Monocytes # (A) 0.1 k/uL (0-1.0); Monocytes % (A) 5 %; Neutrophils # (A) 1.4 k/uL (1.3-7.7); Neutrophils % (A) 49 %; Platelet Count 144 k/uL (150-450); RDW 13.5 % (11.5-15.5); WBC 2.8 k/uL (3.8-10.6)
[2023-03-09 07:17] LABS: INR 0.9 (<1.2)
--- NOTE | 2023-03-09 11:27 | CA ---
Transthoracic Echo Report Name: Mary Prasad Age: 62 Gender: F : 1960 Exam Date: 03/08/2023 17:00 Exam Location: [place] [facility] Ht (in): 66 Wt (lb): 185 Ordering Physician: Aleksander Navarro Attending/Referring Phys: [id number], Ramon Grain Sampler Abdiel Jones Procedure CPT: Indications: New onset afib Cardiac Hx: Technical Quality: Fair Contrast 1: Total Dose (mL): Contrast 2: Total Dose (mL): MEASUREMENTS (Male / Female) Normal Values 2D ECHO LV Diastolic Diameter PLAX 4.5 cm 4.2 - 5.9 / 3.9 - 5.3 cm LV Systolic Diameter PLAX 3.4 cm IVS Diastolic Thickness 1.1 cm 0.6 - 1.0 / 0.6 - 0.9 cm LVPW Diastolic Thickness 1.2 cm 0.6 - 1.0 / 0.6 - 0.9 cm LV Relative Wall Thickness 0.5 RV Internal Dim ED PLAX 2.8 cm LVOT Diameter 2.4 cm Aortic Root Diameter 3.1 cm LA Systolic Diameter LX 1.8 cm 3.0 - 4.0 / 2.7 - 3.8 cm LV Diastolic Volume MOD BP 46.0 cm??? 67 - 155 / 56 - 104 cm??? LV Systolic Volume MOD BP 23.0 cm??? 22 - 58 / 19 - 49 cm??? LV Ejection Fraction MOD BP 50.0 % >= 55 % LV Cardiac Index MOD BP 736.5 cm???/min???m??? LV Diastolic Volume MOD 4C 58.1 cm??? LV Systolic Volume MOD 4C 35.2 cm??? LV Ejection Fraction MOD 4C 39.5 % LV Cardiac Index MOD 4C 733.4 cm???/min???m??? LV Diastolic Length 4C 7.2 cm LV Systolic Length 4C 6.8 cm LV Diastolic Volume MOD 2C 36.4 cm??? LV Systolic Volume MOD 2C 14.2 cm??? LV Ejection Fraction MOD 2C 61.0 % LV Cardiac Index MOD 2C 708.6 cm???/min???m??? LV Diastolic Length 2C 6.9 cm LV Systolic Length 2C 6.3 cm LA Volume 45.9 cm??? 18 - 58 / 22 - 52 cm??? LA Volume Index 22.9 cm???/m??? 16 - 28 cm???/m??? DOPPLER AV Peak Velocity 112.1 cm/s AV Peak Gradient 5.0 mmHg AI Peak Velocity 327.6 cm/s AI Peak Gradient 42.9 mmHg AI Pressure Half Time 1016.2 ms LVOT Peak Velocity 95.2 cm/s LVOT Peak Gradient 3.6 mmHg LVOT Velocity Time Integral 20.7 cm LVOT Stroke Volume 94.8 cm??? LVOT Stroke Volume Index 49.0 ml/m??? LVOT Cardiac Index 3032.1 cm???/min???m??? AV Area Cont Eq pk 3.9 cm??? MV Peak Velocity 79.9 cm/s MV Peak Gradient 2.6 mmHg MV Mean Velocity 46.7 cm/s MV Mean Gradient 1.0 mmHg MV Velocity Time Integral 37.7 cm MR Peak Velocity 250.2 cm/s MR Peak Gradient 25.0 mmHg Mitral E Point Velocity 79.2 cm/s Mitral A Point Velocity 64.4 cm/s Mitral E to A Ratio 1.2 MV Deceleration Time 256.3 ms MV E' Velocity 8.6 cm/s Mitral E to MV E' Ratio 9.2 PV Peak Velocity 90.4 cm/s PV Peak Gradient 3.3 mmHg FINDINGS Left Ventricle Normal LV size. Mild concentric LVH. Left ventricular ejection fraction is estimated at 50-55 %. Right Ventricle Normal right ventricular size. Right Atrium Normal right atrial size. Left Atrium Normal left atrial size. Mitral Valve Structurally normal mitral valve. Trace MR. Aortic Valve Grossly normal AV in appearance. Mild AI. Tricuspid Valve Structurally normal tricuspid valve. No tricuspid regurgitation. Pulmonic Valve Pulmonic valve not well visualized. Mild PI. Pericardium Normal pericardium. Aorta Normal size aortic root. CONCLUSIONS Normal LV systolic function Mild aortic regurgitation Previewed by: Dr. Gil Huang MD (Electronically Signed) Final Date: 09 March 2023 11:26
[2023-03-09] MEDS: PANTOPRAZOLE 40 MG TABLET PO SCH (11:54)
[2023-03-09] MEDS: HEPARIN SOD,PORK IN 0.45% NACL 25,000 UNIT in 0.45% NACL 1 250ML.BAG IV SCH (11:54)
[2023-03-09] MEDS ORDERED: APIXABAN 5 MG TAB PO SCH (12:30)
--- NOTE | 2023-03-09 12:52 | P.PN ---
Subjective HISTORY OF PRESENT ILLNESS: This is a 62-year-old female with a past medical history significant for SVT and hypothyroidism. Patient follows in the office with Dr. Huang. We have been asked to see the patient in consultation for new-onset atrial fibrillation. Patient examined at the bedside in the emergency room. Patient states that she woke up yesterday and while walking to the bathroom began to feel dizzy and nauseated. She states after using the bathroom she began to have palpitations which prompted her to come to the emergency room for further evaluation. The patient was found to be in A. fib with mild RVR. She denies a history of atrial fibrillation. At the time of examination she is maintaining sinus mechanism with a heart rate in the 70s. She currently denies chest pain or pressure. She denies shortness of breath. She denies any palpitations. She remains on IV heparin. * EKG reveals atrial fibrillation with controlled ventricular rate * CT of the brain: Negative for acute intracranial abnormality * Laboratory data: Troponin negative 3. TSH 0.809. * Current home cardiac medications include metoprolol succinate 25 mg at night and aspirin 81 mg at night * Most recent echocardiogram in April 2020 revealing ejection fraction 55- 60%, mild AR, trace MR, trace TR * She underwent stress echocardiogram in April 2020 which was negative for ischemia 03/09/2023 Patient examined this morning at the bedside. Patient denies chest pain or pressure. She denies shortness of breath. She remains on IV heparin. Telemetry reveals sinus mechanism with a heart rate in the 70s. Echocardiogram completed revealing ejection fraction 50-55%, mild AI, trace MR PHYSICAL EXAM: VITAL SIGNS: Reviewed. GENERAL: Well-developed in no acute distress. HEENT: Head is normocephalic. Pupils are equal, round. Sclerae anicteric. Mucous membranes of the mouth are moist. Neck supple. No JVD or thyromegaly LUNGS: Respirations even and unlabored. Lungs essentially clear to auscultation bilaterally. HEART: Regular rate and rhythm. S1 and S2 heard. ABDOMEN: Soft. Nondistended. Nontender. EXTREMITIES: Normal range of motion. No clubbing or cyanosis. Peripheral puls es intact. No lower extremity edema NEUROLOGIC: Awake and alert. Oriented x 3. ASSESSMENT: Palpitations New-onset paroxysmal atrial fibrillation with mild RVR, currently maintaining sinus mechanism History of SVT Hypothyroidism PLAN: Continue current dose of metoprolol CHADVASC score of 1. Will anticoagulate patient short-term with Eliquis 5 mg twice a day. Discontinue IV heparin Patient is stable for discharge home today from a cardiac standpoint She is to follow up post discharge in the office Nurse practitioner note has been reviewed by physician. Signing provider agrees with the documented findings, assessment, and plan of care. Objective - Vital Signs Vital signs: Vital Signs Temp 98.2 F 03/09/23 08:00 Pulse 65 03/09/23 08:00 Resp 16 03/09/23 08:00 BP 96/64 03/09/23 08:00 Pulse Ox 97 03/09/23 08:00 FiO2 Intake & Output 03/08/23 03/09/23 03/09/23 18:59 06:59 18:59 Intake Total 78.333 10 171.667 Balance 78.333 10 171.667 Weight 83.915 kg Intake: IV 10 Invasive Line 2 10 Intake, IV Titration 78.333 171.667 Amount Heparin Sod,Pork in 0.45% 78.333 171.667 NaCl 25,000 unit In 0.45 % NaCl 1 250ml.bag @ 11. 917 UNITS/KG/HR 10 mls/hr IV .Q24H [facility] Rx#: [id number] Other: Voiding Method Toilet Toilet # Voids 2 1 - Labs CBC & Chem 7: 03/09/23 06:47 03/08/23 07:22 Labs: Abnormal Lab Results - Last 24 Hours (Table) 03/08/23 03/08/23 03/08/23 Range/Units 07:22 15:30 23:37 WBC (3.8-10.6) k/uL Plt Count (150-450) k/uL APTT 31.4 H 55.6 H (22.0-30.0) sec Cholesterol 224.00 H (0.00-200.00) mg/dL LDL Cholesterol, Calc 146.7 H (0.0-131.0) mg/dL 03/09/23 03/09/23 Range/Units 06:47 06:47 WBC 2.8 L (3.8-10.6) k/uL Plt Count 144 L (150-450) k/uL APTT 52.0 H (22.0-30.0) sec Cholesterol (0.00-200.00) mg/dL LDL Cholesterol, Calc (0.0-131.0) mg/dL
[2023-03-09 13:04] VITALS: BP 121/79; PULSE 58; RESP 14; TEMP 97.7
== END 2023-03-09 17:08 | disposition home or self-care (01) | DRG 310 ==
LOC: EC 06:22 → 3SCARD 12:44 → OBSVTOIN 03-09 07:01
PROVIDERS: ADMIT Internal Medicine; ATTEND Internal Medicine
DX: I48.0 Paroxysmal atrial fibrillation (principal); E03.9 Hypothyroidism, unspecified; E87.6 Hypokalemia; Z86.61 Personal history of infections of the central nervous system; Z28.311 Partially vaccinated for COVID-19; I47.10 Supraventricular tachycardia, unspecified; F41.9 Anxiety disorder, unspecified; F32.A Depression, unspecified; K22.70 Barrett's esophagus without dysplasia; H91.90 Unspecified hearing loss, unspecified ear; K76.0 Fatty (change of) liver, not elsewhere classified; I10 Essential (primary) hypertension; K21.9 Gastro-esophageal reflux disease without esophagitis; Z87.11 Personal history of peptic ulcer disease; L30.9 Dermatitis, unspecified; H93.12 Tinnitus, left ear; M81.0 Age-related osteoporosis without current pathological fracture; Z28.21 Immunization not carried out because of patient refusal; Z88.1 Allergy status to other antibiotic agents; Z88.2 Allergy status to sulfonamides; Z79.82 Long term (current) use of aspirin; Z79.890 Hormone replacement therapy; Z86.718 Personal history of other venous thrombosis and embolism
CPT/HCPCS: 36415; 70450; 80053; 80061; 81003; 83735; 84443; 84484; 85025; 85379; 85610; 85730; 93005; 93306; 96361; 96365; 96366; 96375; 99291

== ENCOUNTER → 2023-05-11 | Outpatient (CLI) | payer OTHER ==
--- NOTE | 2023-05-11 11:38 | MM ---
Reason for Exam: Follow-up at short interval from prior study. Last screening mammogram was performed 12 month(s) ago. Patient History: Menarche at age 19. First Full-Term at age 28. Right ovary removed at age 42. Hysterectomy at age 42. Postmenopausal. Patient has history of breast feeding. Other cancer, age 49. Maternal aunt had breast cancer, age 55. Maternal aunt had breast cancer, age 50. Mother had breast cancer, age 75. Risk Values: Tala 5 year model risk: 2.6%. NCI Lifetime model risk: 12.8%. Prior Study Comparison: 06/18/1998 Screening Mammogram, [facility]. 07/11/2014 Bilateral Screening Mammogram, [facility]. 09/19/2015 Bilateral Screening Mammogram, [facility]. 09/25/2016 Bilateral Screening Mammogram, [facility]. 10/12/2017 Bilateral Screening Mammogram, [facility]. 11/03/2018 Bilateral Screening Mammogram, [facility]. 01/03/2020 Bilateral Screening Mammogram, [facility]. 04/21/2021 Bilateral Screening Mammogram, [facility]. 04/29/2021 Bilateral Diagnostic Ultrasound, [facility]. 05/08/2022 Bilateral MG screening mammo w CAD, [facility]. Tissue Density: There are scattered areas of fibroglandular density. Findings: Analyzed By CAD. No significant change from prior exams. No persisting abnormality on 3-D images. Overall Assessment: Negative, BI-RAD 1 Management: Screening Mammogram of both breasts in 1 year. Further clinical management of patient's left breast pain. Results were given to the patient verbally at the time of exam. Patient should continue monthly self-breast exams. A clinical breast exam by your physician is recommended on an annual basis. This exam should not preclude additional follow-up of suspicious palpable abnormalities. Note on Tala scores and lifetime risk: 1. A Tala score greater than 3% is considered moderate risk. If this is the case, consider specialist referral to assess eligibility for a risk reducing agent. 2. If overall lifetime risk for the development of breast cancer is 20% or higher, the patient may qualify for future screening with alternating mammogram and breast MRI. Electronically signed and approved by: Nuria Pierre M.D. Radiologist
== END | disposition home or self-care (01) ==
LOC: RADMAMWWP 10:40
PROVIDERS: ATTEND Family Medicine
DX: R92.323 Mammographic fibroglandular density, bilateral breasts (principal); N64.4 Mastodynia; Z80.3 Family history of malignant neoplasm of breast; Z78.0 Asymptomatic menopausal state
CPT/HCPCS: 77062; 77066

== ENCOUNTER 2023-06-10 05:52 | Emergency (ER) | payer OTHER ==
--- NOTE | 2023-06-10 06:10 | ED ---
Abdominal Pain HPI - General Chief Complaint: Abdominal Pain Stated Complaint: abd pain NVD Time Seen by Provider: 06/10/23 05:56 Source: patient, RN notes reviewed Mode of arrival: EMS Limitations: no limitations - History of Present Illness Initial Comments: This is a 62-year-old female who presents to the emergency department for abdominal pain, nausea, vomiting, and diarrhea. States that she just finished a 7-day course of Flagyl and Augmentin yesterday for a dental infection. While she was taking the antibiotics she was having ongoing diarrhea, going almost every hour. Since being off of the Augmentin and Flagyl today symptoms have not gotten any better. She threw up this morning, but does not currently feel nauseous. Her largest concern was when she went to the restroom she noticed bright red blood mixed in with her stool and she is on Eliquis for A-fib. She also started to develop lower abdominal pain this morning. Denies any fe chetna/chills or sick contacts. MD Complaint: abdominal pain - Related Data Home Medications Medication Instructions Recorded Confirmed Levothyroxine Sodium 112 mcg PO MOWEFR 04/22/20 03/07/23 Levothyroxine Sodium [Synthroid] 100 mcg PO SUTUTHSA 05/22/22 03/07/23 Omeprazole 20 mg PO DAILY PRN 03/07/23 03/07/23 Omeprazole 20 mg PO DAILY@1200 03/07/23 03/07/23 Previous Rx's Medication Instructions Recorded Acetaminophen Tab [Tylenol] 650 mg PO Q6HR PRN tab 03/09/23 Apixaban [Eliquis] 5 mg PO BID #60 tab 03/09/23 Metoprolol Succinate (ER) [Toprol 25 mg PO HS@1800 #30 tab 03/09/23 XL] Nitroglycerin Sl Tabs [Nitrostat] 0.4 mg SUBLINGUAL Q5M PRN #8 tab 03/09/23 Dicyclomine [Bentyl] 10 mg PO QID PRN #30 capsule 06/10/23 Loperamide [Imodium] 2 mg PO DIRECTED PRN #30 capsule 06/10/23 Ondansetron Odt [Zofran Odt] 4 mg PO Q8HR PRN #20 tab 06/10/23 Allergies Allergy/AdvReac Type Severity Reaction Status Date / Time Quinolones Allergy Severe Rash/Hives Verified 03/07/23 14:27 ciprofloxacin [From Cipro] Allergy Unknown Verified 03/07/23 14:27 Sulfa (Sulfonamide Allergy Rash/Hives/Vision Verified 03/07/23 14:27 Antibiotics) Disturbance Review of Systems ROS Statement: Those systems with pertinent positive or pertinent negative responses have been documented in the HPI. ROS Other: All systems not noted in ROS Statement are negative. 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 dysphagia recently, eczema like rash elbows & knees, itchy-sees derm, osteoporosis History of Any Multi-Drug Resistant Organisms: None Reported Past Surgical History: Adenoidectomy, Hysterectomy, Tonsillectomy, Tubal Ligation Additional Past Surgical History / Comment(s): Laser removal lesion lower jaw, EGDs, colonoscopy, cyst removed L hand, bilateral bunionectomies, bilateral feet hammer toe surgeries, varicose veins-BILAT LASER, CYSTOCELE Past Anesthesia/Blood Transfusion Reactions: Motion Sickness Additional Past Anesthesia/Blood Transfusion Reaction / Comment(s): Brother slow to wake up. Past Psychological History: Anxiety, Depression Additional Psychological History / Comment(s): Pt resides with 1 adult daughter. She is independent. Smoking Status: Former smoker Past Alcohol Use History: None Reported Additional Past Alcohol Use History / Comment(s): Pt started smoking in 1982 and quit in 2016. Past Drug Use History: None Reported - Past Family History Mother Family Medical History: Cancer Additional Family Medical History / Comment(s): basal cell, lung, breast cancer Father Family Medical History: AFIB, Cancer Additional Family Medical History / Comment(s): basal cell, enlarged heart from mesothelioma General Exam Limitations: no limitations General appearance: alert, in no apparent distress Head exam: Present: atraumatic, normocephalic, normal inspection Respiratory exam: Present: normal lung sounds bilaterally. Absent: respiratory distress, wheezes, rales, rhonchi, stridor Cardiovascular Exam: Present: regular rate, normal rhythm, normal heart sounds. Absent: systolic murmur, diastolic murmur, rubs, gallop, clicks GI/Abdominal exam: Present: soft, tenderness (Lower abdomen), normal bowel sounds. Absent: distended Neurological exam: Present: alert, oriented X3, CN II-XII intact Psychiatric exam: Present: normal affect, normal mood Skin exam: Present: warm, dry, intact, normal color. Absent: rash Course Vital Signs 06/10/23 06/10/23 06/10/23 05:59 07:15 07:26 Temperature 98.2 F Pulse Rate 66 62 Respiratory 18 18 Rate Blood Pressure 132/78 131/82 O2 Sat by Pulse 97 98 Oximetry 06/10/23 08:10 Temperature 98.1 F Pulse Rate 56 L Respiratory 17 Rate Blood Pressure 127/79 O2 Sat by Pulse 98 Oximetry Medical Decision Making - Medical Decision Making This is a 62 year old female who presents to the emergency department for abdominal pain and diarrhea. Was pt. sent in by a medical professional or institution? @ -No Did you speak to anyone other than the patient for history? @ -No Did you review nursing and triage notes? @ -Yes, and I agree, it is accurate with regards to the patient's symptoms. Were old charts reviewed? @ -No Differential Diagnosis? @ -Differential Abdominal Pain Women: Appendicitis, Cholecystitis, diverticulosis, ischemic bowel, pancreatitis, hepatitis, UTI, gastroenteritis, AAA, incarcerated hernia, bowel obstruction, constipation, inflammatory bowel, hepatitis, peptic ulcer disease, splenic infarction, perforated viscus, vulvitis, ovarian torsion, PID, kidney stone, placenta abruption, this is not meant to be an all-inclusive list EKG interpreted by me (3pts min.)? @ -EKG interpreted by me demonstrating the following: Sinus rhythm. Ventricular rate 70 bpm, WI interval 184 ms, QRS duration 98 ms, QTc 432 ms. X-rays interpreted by me (1pt min.)? @ -Not obtained CT interpreted by me (1pt min.)? @ -CT scan of the abdomen pelvis obtained. My interpretation identifies bowel wall thickening of the cecum and ascending colon. U/S interpreted by me (1pt. min.)? @ -Not obtained What testing was considered but not performed? (CT, X-rays, U/S, labs)? Why? @ -None What meds were considered but not given? Why? @ -None Did you discuss the management of the patient with other professionals? @ -No Did you reconcile home meds? @ -No Was smoking cessation discussed for >3mins.? @ -No Was critical care preformed (if so, how long)? @ -No Were there social determinants of health that impacted care today? How? (Homelessness, low income, unemployed, alcoholism, drug addiction, transportation, low edu. Level, literacy, decrease access to med. care, fci, rehab)? @ -No Was there de-escalation of care discussed even if they declined? (Discuss DNR or withdrawal of care, Hospice)? @ -No What co-morbidities impacted this encounter? (DM, HTN, Smoking, COPD, CAD, Cancer, CVA, Hep., AIDS, mental health diagnosis, sleep apnea, morbid obesity)? @ -A-fib, HTN Was patient admitted / discharged? @ -Discharged. Lab work unremarkable. Urinalysis negative for signs of infection. COVID, influenza, and RSV testing are negative. C. difficile testing negative. CT scan of the abdomen and pelvis obtained demonstrating moderate wall thickening involving the cecum, ascending colon as well as most of the transverse colon felt to reflect infectious colitis. Patient treated with IV fluids, morphine, and Bentyl with improvement in symptoms. Given that she finished a 7-day course of Augmentin and Flagyl yesterday, will avoid putting the patient on additional antibiotics at this time. She has a follow-up appointment with her primary care provider later today, advised she discuss the results and whether or not antibiotic use would be appropriate with him. Prescription for Bentyl, Imodium, and Zofran provided with dosing instructions reviewed. She is also advised to remain well-hydrated. Patient discharged home in stable condition. Undiagnosed new problem with uncertain prognosis? @ -None Drug Therapy requiring intensive monitoring for toxicity (Heparin, Nitro, Insulin, Cardizem)? @ -None Were any procedures done? @ -None Diagnosis/symptom? @ -Diarrhea, colitis Acute, or Chronic, or Acute on Chronic? @ -Acute Uncomplicated (without systemic symptoms) or Complicated (systemic symptoms)? @ -Uncomplicated Side effects of treatment? @ -None Exacerbation, Progression, or Severe Exacerbation] @ -Not applicable Poses a threat to life or bodily function? @ -No Return precautions reviewed in depth, the patient is instructed to return to the emergency department with any new, worsening, or concerning symptoms. Patient verbalized understanding. This case was discussed in detail with the attending ED physician, Dr. Liu. Presentation, findings, and treatment plan discussed in detail as well. - Lab Data Result diagrams: 06/10/23 06:15 06/10/23 06:15 Lab Results 06/10/23 06/10/23 06/10/23 Range/Units 06:15 06:15 06:55 WBC 4.0 (3.8-10.6) k/uL RBC 4.65 (3.80-5.40) m/uL Hgb 13.3 (11.4-16.0) gm/dL Hct 40.7 (34.0-46.0) % MCV 87.4 (80.0-100.0) fL MCH 28.5 (25.0-35.0) pg MCHC 32.6 (31.0-37.0) g/dL RDW 13.5 (11.5-15.5) % Plt Count 178 (150-450) k/uL MPV 7.8 Neutrophils % 69 % Lymphocytes % 21 % Monocytes % 5 % Eosinophils % 3 % Basophils % 0 % Neutrophils # 2.8 (1.3-7.7) k/uL Lymphocytes # 0.9 L (1.0-4.8) k/uL Monocytes # 0.2 (0-1.0) k/uL Eosinophils # 0.1 (0-0.7) k/uL Basophils # 0.0 (0-0.2) k/uL Sodium 141 (137-145) mmol/L Potassium 3.8 (3.5-5.1) mmol/L Chloride 111 H (98-107) mmol/L Carbon Dioxide 23 (22-30) mmol/L Anion Gap 7 mmol/L BUN 10 (7-17) mg/dL Creatinine 0.58 (0.52-1.04) mg/dL Est GFR (CKD-EPI)AfAm >90 (>60 ml/min/1.73 sqM) Est GFR (CKD-EPI)NonAf >90 (>60 ml/min/1.73 sqM) Glucose 127 H (74-99) mg/dL Plasma Lactic Acid [place] (0.7-2.0) mmol/L Calcium 9.2 (8.4-10.2) mg/dL Magnesium 1.9 (1.6-2.3) mg/dL Total Bilirubin 0.8 (0.2-1.3) mg/dL AST 31 (14-36) U/L ALT 20 (4-34) U/L Alkaline Phosphatase 58 (38-126) U/L Total Protein 7.0 (6.3-8.2) g/dL Albumin 4.2 (3.5-5.0) g/dL Amylase 50 (30-110) U/L Lipase 51 (23-300) U/L Urine Color Light Yellow Urine Appearance Clear (Clear) Urine pH 5.5 (5.0-8.0) Ur Specific [place] 1.013 (1.001-1.035) Urine Protein Negative (Negative) Urine Glucose (UA) Negative (Negative) Urine Ketones Negative (Negative) Urine Blood Negative (Negative) Urine Nitrite Negative (Negative) Urine Bilirubin Negative (Negative) Urine Urobilinogen <2.0 (<2.0) mg/dL Ur Leukocyte Esterase Negative (Negative) C. difficile (EIA) Intrp (Negative) Influenza Type A (PCR) (Not Detectd) Influenza Type B (PCR) (Not Detectd) RSV (PCR) (Not Detectd) SARS-CoV-2 (PCR) (Not Detectd) 06/10/23 06/10/23 06/10/23 Range/Units 06:55 07:05 07:10 WBC (3.8-10.6) k/uL RBC (3.80-5.40) m/uL Hgb (11.4-16.0) gm/dL Hct (34.0-46.0) % MCV (80.0-100.0) fL MCH (25.0-35.0) pg MCHC (31.0-37.0) g/dL RDW (11.5-15.5) % Plt Count (150-450) k/uL MPV Neutrophils % % Lymphocytes % % Monocytes % % Eosinophils % % Basophils % % Neutrophils # (1.3-7.7) k/uL Lymphocytes # (1.0-4.8) k/uL Monocytes # (0-1.0) k/uL Eosinophils # (0-0.7) k/uL Basophils # (0-0.2) k/uL Sodium (137-145) mmol/L Potassium (3.5-5.1) mmol/L Chloride (98-107) mmol/L Carbon Dioxide (22-30) mmol/L Anion Gap mmol/L BUN (7-17) mg/dL Creatinine (0.52-1.04) mg/dL Est GFR (CKD-EPI)AfAm (>60 ml/min/1.73 sqM) Est GFR (CKD-EPI)NonAf (>60 ml/min/1.73 sqM) Glucose (74-99) mg/dL Plasma Lactic Acid [place] 0.9 (0.7-2.0) mmol/L Calcium (8.4-10.2) mg/dL Magnesium (1.6-2.3) mg/dL Total Bilirubin (0.2-1.3) mg/dL AST (14-36) U/L ALT (4-34) U/L Alkaline Phosphatase (38-126) U/L Total Protein (6.3-8.2) g/dL Albumin (3.5-5.0) g/dL Amylase (30-110) U/L Lipase (23-300) U/L Urine Color Urine Appearance (Clear) Urine pH (5.0-8.0) Ur Specific [place] (1.001-1.035) Urine Protein (Negative) Urine Glucose (UA) (Negative) Urine Ketones (Negative) Urine Blood (Negative) Urine Nitrite (Negative) Urine Bilirubin (Negative) Urine Urobilinogen (<2.0) mg/dL Ur Leukocyte Esterase (Negative) C. difficile (EIA) Intrp Negative (Negative) Influenza Type A (PCR) Not Detected (Not Detectd) Influenza Type B (PCR) Not Detected (Not Detectd) RSV (PCR) Not Detected (Not Detectd) SARS-CoV-2 (PCR) Not Detected (Not Detectd) - Radiology Data Radiology results: report reviewed, image reviewed Disposition Clinical Impression: Diarrhea, Colitis Disposition: HOME SELF-CARE Instructions (If sedation given, give patient instructions): Loperamide (By mouth), Acute Diarrhea (ED) Additional Instructions: Return to the emergency department with any new, worsening, or concerning symptoms. You can take the Bentyl as 1 to 2 tablets up to 4 times daily for abdominal pain and diarrhea. Take the Imodium as prescribed for diarrhea. You can take the Zofran up to every 8 hours as needed for nausea and vomiting. Make sure you drink plenty of fluids. Follow-up with your primary care provider today as scheduled. Discuss other treatments with him and whether or not additional antibiotics would be appropriate. Prescriptions: Dicyclomine [Bentyl] 10 mg PO QID PRN #30 capsule PRN Reason: Gi Upset Loperamide [Imodium] 2 mg PO DIRECTED PRN #30 capsule PRN Reason: Diarrhea Ondansetron Odt [Zofran Odt] 4 mg PO Q8HR PRN #20 tab PRN Reason: Nausea And Vomiting Is patient prescribed a controlled substance at d/c from ED?: No Referrals: Robert Egan MD [Primary Care Provider] - 1-2 days Time of Disposition: 08:25
[2023-06-10 06:27] LABS: Basophils % (A) 0 %; Eosinophils # (A) 0.1 k/uL (0-0.7); Eosinophils % (A) 3 %; HCT 40.7 % (34.0-46.0); HGB 13.3 gm/dL (11.4-16.0); Lymphocytes # (A) 0.9 k/uL (1.0-4.8); Lymphocytes % (A) 21 %; MCH 28.5 pg (25.0-35.0); MCHC 32.6 g/dL (31.0-37.0); MCV 87.4 fL (80.0-100.0); Mean Platelet Volume 7.8; Monocytes # (A) 0.2 k/uL (0-1.0); Monocytes % (A) 5 %; Neutrophils # (A) 2.8 k/uL (1.3-7.7); Neutrophils % (A) 69 %; Platelet Count 178 k/uL (150-450); RBC 4.65 m/uL (3.80-5.40); RDW 13.5 % (11.5-15.5)
[2023-06-10 06:37] LABS: ALT 20 U/L (4-34); African American GFR (CKD) >90 (>60 ml/min/1.73 sqM); Albumin 4.2 g/dL (3.5-5.0); Amylase 50 U/L (30-110); Anion Gap 7 mmol/L; Blood Urea Nitrogen 10 mg/dL (7-17); Calcium 9.2 mg/dL (8.4-10.2); Carbon Dioxide 23 mmol/L (22-30); Chloride 111 mmol/L (98-107); Glucose 127 mg/dL (74-99); Lipase 51 U/L (23-300); Non-African American GFR(CKD) >90 (>60 ml/min/1.73 sqM); Sodium 141 mmol/L (137-145); Total Bilirubin 0.8 mg/dL (0.2-1.3)
[2023-06-10 06:43] LABS: AST 31 U/L (14-36); Magnesium 1.9 mg/dL (1.6-2.3); Potassium 3.8 mmol/L (3.5-5.1)
[2023-06-10 06:44] LABS: Alkaline Phosphatase 58 U/L (38-126)
[2023-06-10 07:08] LABS: Appearance,Urine Clear (Clear); Bilirubin,Urine Negative (Negative); Blood,Urine Negative (Negative); Color,Urine Light Yellow; Glucose,Urine (UA) Negative (Negative); Ketones,Urine Negative (Negative); Leukocyte Esterase,Urine Negative (Negative); Nitrite,Urine Negative (Negative); PH, Urine 5.5 (5.0-8.0); Protein,Urine Negative (Negative); Specific Gravity,Urine 1.013 (1.001-1.035); Urobilinogen,Urine <2.0 mg/dL (<2.0)
[2023-06-10] MEDS: SODIUM CHLORIDE 0.9% 1,000 ML IV STA (07:09)
[2023-06-10] MEDS: DICYCLOMINE 10 MG/ML 2 ML AMP IM STA (07:10)
[2023-06-10] MEDS: MORPHINE SULFATE 2 MG/ML SYRINGE IVP STA (07:12)
--- NOTE | 2023-06-10 07:58 | CT ---
EXAMINATION TYPE: CT abdomen pelvis w con DATE OF EXAM: 06/10/2023 COMPARISON: 12/06/2012 HISTORY: abd pain CT DLP: 1000.6 mGycm CONTRAST: CT scan of the abdomen and pelvis is performed without Oral Contrast and with IV Contrast, patient in jected with 100 mL of Isovue 300. FINDINGS: LUNG BASES-: No visible nodule. No infiltrate. LIVER/GB: No calcified gallstones. Again noted is a cavernous hemangioma lateral segment left hepat ic lobe measuring 2.9 cm seen previously. Biliary tree is of normal caliber. PANCREAS: No inflammation. No distinct mass. SPLEEN: No splenic enlargement. No lesion seen. ADRENALS: No nodule. No thickening. KIDNEYS/BLADDER: No hydronephrosis. No nephrolithiasis. No distinct renal mass. Urinary bladder g rossly unremarkable. BOWEL: There is moderate wall thickening involving the cecum, ascending colon as well as most of the transverse colon felt to reflect infectious colitis. Additional possibilities include inflammatory an d ischemic causes. The appendix measures up 0.67 cm in thickness without inflammatory process seen. R emaining colon and small bowel are of normal caliber. GENITAL ORGANS: Hysterectomy changes noted. Normal-appearing right ovary. Left ovary is not clearly visualized. LYMPH NODES: No greater than 1cm abdominal or pelvic lymph nodes are appreciated. AORTA: No significant abnormality. OSSEOUS STRUCTURES: No significant abnormality is seen. OTHER: No significant additional abnormality is seen. IMPRESSION: 1. There is moderate wall thickening involving the cecum, ascending colon as well as most of the oakley sverse colon felt to reflect infectious colitis. Additional possibilities include inflammatory and is chemic causes. 2. Hepatic cavernous hemangioma.
[2023-06-10] MEDS: ACET/COD 300 MG/30 MG STARTER PACK 6 TAB BTL PO STA (08:32)
[2023-06-10 08:47] VITALS: BP 127/79; PULSE 56; RESP 17; TEMP 98.1
== END 2023-06-10 08:38 | disposition home or self-care (01) ==
LOC: EC 05:52
DX: K52.9 Noninfective gastroenteritis and colitis, unspecified (principal); I48.91 Unspecified atrial fibrillation; I10 Essential (primary) hypertension; Z87.891 Personal history of nicotine dependence; Z88.2 Allergy status to sulfonamides; Z88.1 Allergy status to other antibiotic agents; Z88.8 Allergy status to other drugs, medicaments and biological substances
CPT/HCPCS: 99285; 96374; 96361; 96372; 36415; 93005; 80053; 82150; 83605; 83690; 83735; 85025; 81003; 87324; 87636; 74177; J0500; J2270; Q9967

== ENCOUNTER 2023-07-14 12:36 | Day surgery (SDC) | payer OTHER ==
[2023-07-07 15:15] VITALS: BMI 29.8
[~2023-07-14 12:36] MED LIST changes: -LACTATED RINGERS 1,000 ML IV SCH; +LIDOCAINE 1% (10MG/ML) FOR IV START INTRADERMA PRN
[2023-07-14] MEDS: LACTATED RINGERS 1,000 ML IV SCH (13:36)
[2023-07-14] MEDS ORDERED: PROPOFOL 10 MG/ML 20 ML VIAL IV ONE (14:05)
--- NOTE | 2023-07-14 14:27 | P.PCN ---
Date of Procedure: 07/14/23 Procedure(s) Performed: BRIEF HISTORY: Patient is a 62-year-old pleasant white female scheduled for an elective colonoscopy as a part of evaluation management of rectal bleeding. PROCEDURE PERFORMED: Colonoscopy. PREOPERATIVE DIAGNOSIS: Intermittent rectal bleeding. IV sedation per Anesthesia. PROCEDURE: After informed consent was obtained, the patient, was brought into the endoscopy unit. IV sedation was administered by Anesthesia under continuous monitoring. Digital rectal examination was normal. Initially the Olympus CF-160 flexible video colonoscope was then inserted in the rectum, gradually advanced into the cecum without any difficulty. Careful examination was performed as the scope was gradually being withdrawn. Ileocecal valve and the appendiceal orifice were visualized and appeared normal. Prep was excellent. Mucosa of the cecum, ascending colon, transverse colon, descending colon, sigmoid colon, and rectum appeared normal. Retroflexion was performed in the rectum and small internal hemorrhoids were seen. The patient tolerated the procedure well. IMPRESSION: Normal-appearing colon from rectum to cecum with no evidence of colorectal neoplasia. Small internal hemorrhoids RECOMMENDATIONS: Findings of this examination were discussed with the patient as well as her family. She was advised to be on high-fiber diet and take fiber supplements on a regular basis and recommended repeat colonoscopy in 10 years..
[2023-07-14 14:29] VITALS: TEMP 97
[2023-07-14 15:22] VITALS: BP 127/73; PULSE 55
[2023-07-14 15:23] VITALS: RESP 20
== END 2023-07-14 15:27 | disposition home or self-care (01) ==
LOC: ORWHC2ENDO 12:36
PROVIDERS: ATTEND Internal Medicine Gastroenterology
DX: K62.5 Hemorrhage of anus and rectum (principal); K64.8 Other hemorrhoids; I10 Essential (primary) hypertension; I48.91 Unspecified atrial fibrillation; I73.9 Peripheral vascular disease, unspecified; E07.9 Disorder of thyroid, unspecified; H91.90 Unspecified hearing loss, unspecified ear; Z98.51 Tubal ligation status; Z90.710 Acquired absence of both cervix and uterus; Z79.899 Other long term (current) drug therapy; Z98.890 Other specified postprocedural states
CPT/HCPCS: 45378; J2704

== ENCOUNTER 2024-05-17 10:35 | Day surgery (SDC) | payer BC, OTHER ==
[2024-05-15 16:20] VITALS: BMI 27.7
[2024-05-17] MEDS: IV FLUID CONTINUATION 1,000 ML IV ONE (11:32)
[2024-05-17 11:37] VITALS: TEMP 97
[2024-05-17] MEDS: LACTATED RINGERS 1,000 ML IV SCH (11:49)
[2024-05-17] MEDS ORDERED: PROPOFOL 10 MG/ML 20 ML VIAL IV ONE (12:30)
[2024-05-17] MEDS ORDERED: LIDOCAINE 1% INJ 10MG/ML (20 ML MDV) ONE (12:30)
--- NOTE | 2024-05-17 12:34 | P.PCN ---
Date of Procedure: 05/17/24 Procedure(s) Performed: BRIEF HISTORY: Patient is a 63-year-old, pleasant, white female discomfort of endoscopies upon evaluation of longstanding history of GERD. Presently on Protonix 40 mg twice daily and doing well.. History of duodenal ulcer diagnosed few months ago. PROCEDURE PERFORMED: Esophagogastroduodenoscopy with biopsy and dilation. PREOPERATIVE DIAGNOSIS: Longstanding history of GERD. IV sedation per anesthesia. PROCEDURE: After informed consent was obtained, the patient was brought into the endoscopy unit. IV sedation was administered by Anesthesia under continuous monitoring. Initially the Olympus GIF-140 video endoscope was inserted into the mouth. Esophagus intubated without any difficulty. It was gradually advanced into the stomach and duodenum and carefully examined. The bulb of the duodenum appeared normal. There was a tight duodenal stricture noted in the second part of the duodenum and the scope could not be advanced to this area. At this time I proceeded with balloon dilation using 10 to 12 mm pyloric dilator and with the help of the guidewire was able to gradually advance the dilator through the stricture. It was dilated to 10 mm and then 11 and 12 mmsequentially for 30 seconds. T following this I was able to gently advance the scope through the stricture into the second part of the duodenum that appeared normal. At this time the the scope at this time was withdrawn to the stomach, adequately insufflated with air, and upon careful examination, mucosa of the antrum, appeared normal. There was large amount of retained food in the stomach suggestive of gastric outlet obstruction. Mucosa of the body, cardia and the fundus that were visualized appeared normal. The scope was then withdrawn into the esophagus. Small hiatal hernia noted. The GE junction was located at 39 cm from the incisors. There was a short segment of Duggan's esophagus that was biopsied. The esophagus appeared normal. There were no erosions or ulcerations seen and the patient tolerated the procedure well. IMPRESSION: 1. 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 Scope was advanced through the stricture after dilation 2. Retained food in the stomach suggestive of gastric outlet obstruction 3. Small hiatal hernia 4. Short segment Duggan's esophagus. RECOMMENDATIONS: The findings of this examination were discussed with the patient as well as her family. She was advised to be on full liquids for 2 hours. Recommend small frequent meals. Continue with Protonix 40 mg twice daily. Follow-up in the office in 1 month..
--- NOTE | 2024-05-17 12:44 | P.PCN ---
Date of Procedure: 05/17/24 Procedure(s) Performed: BRIEF HISTORY: Patient is a 63-year-old, pleasant, white female scheduled an upper endoscopy as a part of surveillance of GERD and Duggan's esophagus. She is currently on omeprazole 20 mg daily and doing well.. PROCEDURE PERFORMED: Esophagogastroduodenoscopy with biopsy. PREOPERATIVE DIAGNOSIS: GERD/Duggan's esophagus. IV sedation per anesthesia. PROCEDURE: After informed consent was obtained, the patient was brought into the endoscopy unit. IV sedation was administered by Anesthesia under continuous monitoring. Initially the Olympus GIF-140 video endoscope was inserted into the mouth. Esophagus intubated without any difficulty. It was gradually advanced into the stomach and duodenum and carefully examined. The bulb and the second part of the duodenum appeared normal. The scope at this time was withdrawn to the stomach, adequately insufflated with air, and upon careful examination, mucosa of the antrum, body, cardia and the fundus appeared normal. The scope was then withdrawn into the esophagus. Small hiatal hernia noted. There was a 3 to 4 mm tongue of Duggan's appearing mucosa proximal to the GE junction that was biopsied. The GE junction was located at 39 cm from the incisors. The esophagus appeared normal. There were no erosions or ulcerations seen and the patient tolerated the procedure well. IMPRESSION: 1. Small hiatal hernia. 2. Short segment Duggan's esophagus status post biopsy. RECOMMENDATIONS: The findings of this examination were discussed with the patient as well as her family. She was advised to follow-up with the biopsy results. If the biopsy reveals no evidence of dysplasia, recommend a repeat upper endoscopy in 3 years. In the meantime she will continue with omeprazole 20 mg daily and follow antireflux measures..
[2024-05-17 12:49] VITALS: RESP 16
[2024-05-17 13:34] VITALS: BP 106/65; PULSE 63
== END 2024-05-17 13:49 | disposition home or self-care (01) ==
LOC: ORWHC2ENDO 10:35
PROVIDERS: ATTEND Internal Medicine Gastroenterology
DX: K22.70 Barrett's esophagus without dysplasia (principal); K29.50 Unspecified chronic gastritis without bleeding; K44.9 Diaphragmatic hernia without obstruction or gangrene
CPT/HCPCS: 43239; J2003; J2704; 88305

== ENCOUNTER → 2024-06-28 | Outpatient (CLI) | payer BC ==
--- NOTE | 2024-06-28 09:19 | MM ---
Reason for Exam: Screening (asymptomatic). Last mammogram was performed 1 year(s) and 1 month(s) ago. Patient History: Menarche at age 19. First Full-Term at age 28. Right ovary removed at age 42. Hysterectomy at age 42. Postmenopausal. Patient has history of breast feeding. Other cancer, age 49. Maternal aunt had breast cancer, age 55. Maternal aunt had breast cancer, age 50. Mother had breast cancer, age 75. Risk Values: Tala 5 year model risk: 2.7%. NCI Lifetime model risk: 12.4%. Prior Study Comparison: 04/21/2021 Bilateral Screening Mammogram, [facility]. 05/08/2022 Bilateral MG screening mammo w CAD, [facility]. 05/11/2023 Bilateral MG 3D diag mammo w/cad [place], [facility]. Tissue Density: There are scattered areas of fibroglandular density. Findings: Analyzed By CAD. There is no suspicious group of microcalcifications or new suspicious mass in either breast. Overall Assessment: Negative, BI-RAD 1 Management: Screening Mammogram of both breasts in 1 year. . Patient should continue monthly self-breast exams. A clinical breast exam by your physician is recommended on an annual basis. This exam should not preclude additional follow-up of suspicious palpable abnormalities. Note on Tala scores and lifetime risk: 1. A Tala score greater than 3% is considered moderate risk. If this is the case, consider specialist referral to assess eligibility for a risk reducing agent. 2. If overall lifetime risk for the development of breast cancer is 20% or higher, the patient may qualify for future screening with alternating mammogram and breast MRI. [facility], , 06/28/2024 9:16 AM. Electronically signed and approved by: Kvng Joyner M.D.
== END | disposition home or self-care (01) ==
LOC: RADMAMWWP 08:43
PROVIDERS: ATTEND Family Medicine
DX: Z12.31 Encounter for screening mammogram for malignant neoplasm of breast (principal); R92.323 Mammographic fibroglandular density, bilateral breasts; Z78.0 Asymptomatic menopausal state; Z80.3 Family history of malignant neoplasm of breast
CPT/HCPCS: 77067